=== PATIENT | male | born 1960 | race African-American/Black ===

== ENCOUNTER 2017-06-29 07:58 | Outpatient (CLI) | payer OTHER ==
[2017-06-29 09:11] LABS: #Eosinphils 0.1 thou/uL (0.0-0.7); #Lymphocytes 1.2 thou/uL (1.20-3.40); #Monocytes 0.3 thou/uL (0.11-0.59); #Neutrophils 3.9 thou/uL (1.40-6.50); %Basophils 0.3 % (0.0-1.0); %Lymphocytes 21.9 % (21.0-51.0); Hematocrit 38.5 % (42.0-52.0); Red Blood Cell (RBC) Count 5.14 mill/uL (4.70-6.10); White Blood Cell (WBC) Count 5.5 thou/uL (4.8-10.8)
[2017-06-29 09:24] LABS: Anion Gap 8 mmol/L (10-20); BUN (Urea Nitrogen) 9 mg/dL (8.4-25.7); Calc. Creatinine Clearance 0 mL/min (70-130); Calcium 8.8 mg/dL (7.8-10.44); Carbon Dioxide 27 mmol/L (22-29); Chloride 107 mmol/L (98-107); Estimated GFR-MDRD Greater than 90
== END 2017-06-29 07:59 | disposition home or self-care (01) ==
LOC: LABBT 07:58
PROVIDERS: ATTEND Specialist
DX: Z01.812 Encounter for preprocedural laboratory examination (principal); K43.2 Incisional hernia without obstruction or gangrene
CPT/HCPCS: 80048; 85025

== ENCOUNTER 2017-07-03 09:36 | Day surgery (SDC) | payer OTHER ==
[2017-07-03] MEDS ORDERED: Ketorolac Tromethamine 30 MG/ML VIAL ONE (10:21)
[2017-07-03] MEDS ORDERED: Lidocaine 1% w/Epinephrine 1:200K 30 ML VIAL ONE (11:27)
[2017-07-03] MEDS ORDERED: Bupivacaine 0.25% HCL 30 ML VIAL ONE (11:27)
[2017-07-03] MEDS ORDERED: Fentanyl 100 MCG/2 ML VIAL ONE ×2 (11:36→12:28)
[2017-07-03] MEDS ORDERED: Dexamethasone 20 MG/5 ML VIAL ONE (11:45)
[2017-07-03] MEDS ORDERED: Metoclopramide HCl 10 MG/2 ML VIAL ONE (11:45)
[2017-07-03] MEDS ORDERED: diphenhydrAMINE HCl 50 MG/ML 1 ML VIAL ONE (11:45)
[2017-07-03] MEDS ORDERED: Ondansetron HCl/PF 4 MG/2 ML Vial ONE (11:45)
[2017-07-03] MEDS ORDERED: Lidocaine 1% PF 5 ML VIAL ONE (11:45)
[2017-07-03] MEDS ORDERED: Succinylcholine Chloride 20 MG/ML 10 ml SYRINGE FS ONE (11:45)
[2017-07-03] MEDS ORDERED: Propofol 200 MG/20 ML VIAL ONE (11:45)
--- NOTE | 2017-07-05 21:58 | OP ---
DATE OF PROCEDURE: 07/03/2017 PREOPERATIVE DIAGNOSIS: Ventral incisional hernia. POSTOPERATIVE DIAGNOSIS: Ventral incisional hernia. OPERATION PERFORMED: Incisional hernia repair with mesh using a 4.3 cm Ventralex mesh patch. SURGEON: Shadi Neely M.D. ANESTHESIA: General endotracheal. INDICATIONS: The patient is a 57-year-old black male. He had undergone a Whipple procedure previou sly through a midline incision. He has developed a small, but enlarging incisional hernia. He is t aken to the operating room at this time for repair. DESCRIPTION OF OPERATION: Informed consent was obtained. The patient was taken to the operating ro om where general endotracheal anesthesia was obtained with the patient in supine position. Abdomen was prepped with ChloraPrep and draped in sterile fashion. Local anesthetic was infiltrated and a 4 cm incision was created through prior incision several centimeters above the umbilicus. Dissection was carried through skin and subcutaneous tissue. The hernia sac was identified, dissected circumf erentially, and excised. Entry was gained into the abdominal cavity. The fascial edges were debrid ed. The defect was about 1.5 cm in diameter. Digital inspection internally revealed no adhesions t o the surrounding abdominal wall. A 4.3 cm Ventralex patch was obtained. It was positioned intra-a bdominal and pulled snug against the posterior peritoneum. The fascia was cleared superiorly and in feriorly. The tails were secured to the fascia with 2 interrupted sutures of 0 Prolene superiorly a nd inferiorly. The lateral aspects of the defect were closed with single interrupted sutures of 0 P rolene incorporating bites of the anterior leaflet of the mesh patch. The wound was then closed in layers using 3-0 Vicryl and 4-0 Monocryl suture. Care was taken to obliterate the space of the prior hernia. Dermabond was placed externally. There were no complications. The patient tolerate d the procedure well and was taken to recovery room in stable condition.
== END 2017-07-03 13:32 | disposition home or self-care (01) ==
LOC: SDC 09:36
PROVIDERS: ATTEND Specialist
PROC: 0WUF0JZ Supplement Abdominal Wall with Synthetic Substitute, Open Approach (ICD-10-PCS; principal; 2017-07-03)
DX: K43.2 Incisional hernia without obstruction or gangrene (principal); F17.210 Nicotine dependence, cigarettes, uncomplicated; Z90.49 Acquired absence of other specified parts of digestive tract; Z95.828 Presence of other vascular implants and grafts; Z98.890 Other specified postprocedural states; Z82.3 Family history of stroke
CPT/HCPCS: 96374; J0131; J1100; J1200; J1885; J2001; J2405; J2704; J2765; J3010; S0020

== ENCOUNTER 2017-08-23 09:41 | Outpatient (CLI) | payer OTHER ==
[2017-08-23 10:36] LABS: Hematocrit 33.1 % (42.0-52.0); Mean Platelet Volume 7.6 fL (7.4-10.4); Red Blood Cell (RBC) Count 4.45 mill/uL (4.70-6.10); White Blood Cell (WBC) Count 6.6 thou/uL (4.8-10.8)
[2017-08-23 10:41] LABS: Prothrombin Time 13.6 SEC (12.0-14.7)
[2017-08-23 10:54] LABS: Anion Gap 9 mmol/L (10-20); BUN (Urea Nitrogen) 8 mg/dL (8.4-25.7); Calc. Creatinine Clearance 0 mL/min (70-130); Calcium 8.6 mg/dL (7.8-10.44); Carbon Dioxide 24 mmol/L (22-29); Chloride 109 mmol/L (98-107); Estimated GFR-MDRD Greater than 90
--- NOTE | 2017-08-23 11:29 | RAD ---
2 VIEW CHEST: Date: 08/23/17 HISTORY: Preoperative evaluation. COMPARISON: Portable film of 11/16/16. FINDINGS: There is new infiltrate in the left lower lobe posteriorly which obscures portions of the left hemidi aphragm. There is also evidence of left effusion. The lungs otherwise appear well aerated and clear. A MediPort catheter is in place with tip overlying the SVC. Heart size is normal. IMPRESSION: Focal infiltrate in the left lower lobe consistent with pneumonia. Follow-up recommended. Dr. Mary is being paged for notification at time of dictation. CODE CR. POS: [facility]
== END 2017-08-23 09:42 | disposition home or self-care (01) ==
LOC: LABBT 09:41
PROVIDERS: ATTEND Orthopaedic Surgery
DX: Z01.818 Encounter for other preprocedural examination (principal); G56.21 Lesion of ulnar nerve, right upper limb; R91.8 Other nonspecific abnormal finding of lung field
CPT/HCPCS: 71020; 80048; 85027; 85610; 93005; 93010

== ENCOUNTER 2017-09-24 18:23 | Emergency (ER) | payer OTHER ==
[2017-09-24] MEDS ORDERED: Acetaminophen 500 MG TAB ONE ×2 (18:42→18:43)
== END 2017-09-24 19:50 | disposition home or self-care (01) ==
LOC: ERS 18:23
DX: J11.1 Influenza due to unidentified influenza virus with other respiratory manifestations (principal); F17.210 Nicotine dependence, cigarettes, uncomplicated; Z79.899 Other long term (current) drug therapy
CPT/HCPCS: 87804; 99406

== ENCOUNTER 2017-11-09 08:38 | Outpatient (CLI) | payer OTHER ==
[2017-11-09] MEDS ORDERED: Iopamidol 370 76% 100 ML VIAL ONE (16:55)
== END 2017-11-09 08:39 | disposition home or self-care (01) ==
LOC: BICCT 08:38
PROVIDERS: ATTEND Specialist
DX: C16.9 Malignant neoplasm of stomach, unspecified (principal); J90 Pleural effusion, not elsewhere classified; Z98.890 Other specified postprocedural states
CPT/HCPCS: 74177

== ENCOUNTER 2017-12-28 09:59 | Outpatient (CLI) | payer OTHER ==
--- NOTE | 2017-12-28 12:31 | ULT ---
DOPPLER VENOUS ULTRASOUND BILATERAL UPPER EXTREMITIES: INDICATION: History of bilateral lower extremity edema. TECHNIQUE: Dalton scale, color Doppler, and vascular duplex with spectral analysis was performed of the deep venou s structures of both lower extremities. The common femoral vein, superficial femoral vein, popliteal vein, posterior tibial vein, proximal greater saphenous, and proximal profunda veins were assessed bi laterally. FINDINGS: There is normal compression, flow, and augmentation seen within the deep venous structures of both lo wer extremities. Some mildly prominent inguinal lymph nodes are seen bilaterally. IMPRESSION: 1. No evidence of deep vein thrombosis within both upper extremities. 2. Bilateral enlarged inguinal lymph nodes. POS: [facility]
== END 2017-12-28 10:00 | disposition home or self-care (01) ==
LOC: ULT 09:59
PROVIDERS: ATTEND Family Medicine
DX: R60.0 Localized edema (principal); R59.0 Localized enlarged lymph nodes
CPT/HCPCS: 93970

== ENCOUNTER 2018-02-09 18:05 | Observation (INO) | payer OTHER ==
[2018-02-09 20:24] LABS: #Monocytes 0.4 thou/uL (0.11-0.59); #Neutrophils 3.4 thou/uL (1.40-6.50); %Basophils 0.6 % (0.0-1.0); %Eosinophils 0.9 % (0.0-10.0); %Lymphocytes 21.2 % (21.0-51.0); %Monocytes 7.2 % (0.0-10.0); %Neutrophils 70.1 % (42.0-75.0); Hemoglobin 7.7 g/dL (14.0-18.0); Mean Corpuscular HGB CONC 31.8 g/dL (32.0-36.0); Mean Corpuscular Hemoglobin 24.4 pg (27.0-31.0); Mean Corpuscular Volume 76.8 fl (80.0-94.0); Mean Platelet Volume 11.2 fL (7.4-10.4); Platelet Count 148 thou/uL (130-400); RBC Distribution Width 17.8 % (11.5-14.5); Red Blood Cell (RBC) Count 3.17 mill/uL (4.70-6.10); White Blood Cell (WBC) Count 4.9 thou/uL (4.8-10.8)
[2018-02-09 20:34] LABS: Bilirubin Negative (Negative); Blood, Urine Negative (Negative); Clarity CLEAR (Clear); Glucose, Urine (Dipstick) Negative (Negative); Leukocyte Negative (Negative); Nitrite Negative (Negative); Protein, Urine (Dipstick) Negative (Neg-Trace); Specific Gravity, Urine 1.009 (1.002-1.036); Urobilinogen 0.2 mg/dL (0.2-1.0)
[2018-02-09 20:45] LABS: ALT (SGPT) 24 U/L (8-55); AST (SGOT) 39 U/L (5-34); Albumin 1.8 g/dL (3.5-5.0); Alkaline Phosphatase 206 U/L (40-150); Anion Gap 8 mmol/L (10-20); BUN (Urea Nitrogen) 5 mg/dL (8.4-25.7); Bilirubin, Total 0.4 mg/dL (0.2-1.2); Calc. Creatinine Clearance 0 mL/min (70-130); Calcium 7.3 mg/dL (7.8-10.44); Carbon Dioxide 25 mmol/L (22-29); Chloride 109 mmol/L (98-107); Estimated GFR-MDRD Greater than 90; Glucose 60 mg/dL (70-105); Potassium 3.6 mmol/L (3.5-5.1); Protein, Total 4.8 g/dL (6.0-8.3); Sodium 138 mmol/L (136-145)
--- NOTE | 2018-02-09 22:41 | PDOC.FPRHP ---
- History of Present Illness Chief Complaint: Lower extremity edema History of Present Illness: 57 yo M with past hx of stomach cancer s/p whipple procedure 1 year ago here with complaint of progressively worsening lower extremity edema. He first noticed swelling about 1 month ago in his lower legs it has since slowly progressed up his legs. He has been seen by his PCP who ordered an echo and labs to evaluate for CHF vs IVC obstruction which have yet to be completed. He states that over the past week he has become more concerned due to continued progression of the edema into his scrotum. He denies symptoms such as cough, SOB , leg pain, or abd pain. - Allergies/Adverse Reactions Allergies Allergy/AdvReac Type Severity Reaction Status Date / Time No Known Allergies Allergy Verified 08/23/17 09:55 - Home Medications Medication Instructions Recorded Confirmed Type Gabapentin [Neurontin] 300 mg PO QID 06/29/17 02/09/18 History Ascorbic Acid [Vitamin C] 1 tab PO BID 02/09/18 02/09/18 History Ferrous Sulfate 1 tab PO QAM 02/09/18 02/09/18 History Loperamide HCl [Loperamide] 2 mg PO PRN PRN 02/09/18 02/09/18 History Pantoprazole [Protonix] 40 mg PO DAILY 02/09/18 02/09/18 History buPROPion HCl [buPROPion HCl SR] 150 mg PO QAM 02/09/18 02/09/18 History - History PMHx: Gastric cancer GERD cubital tunnel syndrome b/l etoh abuse tobacco use PSHx: Whipple procedure oct 2016 FHx: unk Social: hx of etoh abuse 30+ pack year hx of smoking - Review of Systems General: denies: fever/chills, weight/appetite/sleep changes ENT: denies: nasal congestion Respiratory: denies: cough, congestion, shortness of breath Cardiovascular: reports: edema (b/l LE). denies: chest pain, palpitation Gastrointestinal: reports: diarrhea (chronic after whipple). denies: nausea, vomiting, abdominal pain Genitourinary: denies: incontinence Skin: denies: rashes, lesions, jaundice, itching Musculoskeletal: denies: pain, tenderness Neurological: denies: numbness, syncope, seizure Psychological: denies: anxiety, depression - Vital signs BP: 94/61 HR: 87 RR: 18 Tmax: 98.7 Pox: 98% on RA Wt: 72.5 - Physical Exam Constitutional: NAD, awake, alert and oriented, well developed HEENT: normocephalic and atraumatic, PERRLA, EOMI, conjunctiva clear, no scleral icterus, grossly normal vision Neck: supple, FROM, trachea midline Chest: no-tender to palpation, no lesions Heart: RRR, other (3+ pitting edema to iliac crest b/l) -Heart: Systolic murmur, does not radiate Lungs: CTAB, no respiratory distress, good air movement Abdomen: soft, non-tender, bowel sounds present, no masses/distention Musculoskeletal: normal structure, ROM grossly normal Neurological: no focal deficit, CN II-XII intact -Neurological: decreased sensation in hands b/l Skin: no rash/lesions, good turgor Heme/Lymphatic: no unusual bruising or bleeding, no purpura Psychiatric: normal mood and affect, good judgment and insight FMR H&P: Results - Labs Result Diagrams: 02/09/18 20:02 02/09/18 20:02 Lab results: WBC 4.9 thou/uL (4.8-10.8) 02/09/18 20:02 Hgb 7.7 g/dL (14.0-18.0) L 02/09/18 20:02 Hct 24.3 % (42.0-52.0) L 02/09/18 20:02 MCV 76.8 fl (80.0-94.0) L 02/09/18 20:02 Plt Count 148 thou/uL (130-400) 02/09/18 20:02 Neutrophils % 70.1 % (42.0-75.0) 02/09/18 20:02 Sodium 138 mmol/L (136-145) 02/09/18 20:02 Potassium 3.6 mmol/L (3.5-5.1) 02/09/18 20:02 Chloride 109 mmol/L (98-107) H 02/09/18 20:02 Carbon Dioxide 25 mmol/L (22-29) 02/09/18 20:02 BUN 5 mg/dL (8.4-25.7) L 02/09/18 20:02 Creatinine 0.73 mg/dL (0.6-1.3) 02/09/18 20:02 Glucose 60 mg/dL (70-105) L 02/09/18 20:02 Calcium 7.3 mg/dL (7.8-10.44) L 02/09/18 20:02 Total Bilirubin 0.4 mg/dL (0.2-1.2) 02/09/18 20:02 AST 39 U/L (5-34) H 02/09/18 20:02 ALT 24 U/L (8-55) 02/09/18 20:02 Alkaline Phosphatase 206 U/L (40-150) H 02/09/18 20:02 Serum Total Protein 4.8 g/dL (6.0-8.3) L 02/09/18 20:02 Albumin 1.8 g/dL (3.5-5.0) L 02/09/18 20:02 Urine Ketones Negative mg/dL (Negative) 02/09/18 20:28 Urine Blood Negative (Negative) 02/09/18 20:28 Urine Nitrite Negative (Negative) 02/09/18 20:28 Ur Leukocyte Esterase Negative (Negative) 02/09/18 20:28 - EKG Interpretation EKG: NSR rate 76 FMR H&P: A/P - Problem List (1) Anasarca Current Visit: Yes Status: Acute Code(s): R60.1 - GENERALIZED EDEMA (2) GERD (gastroesophageal reflux disease) Current Visit: Yes Status: Acute Code(s): K21.9 - GASTRO-ESOPHAGEAL REFLUX DISEASE WITHOUT ESOPHAGITIS (3) Anemia Current Visit: Yes Status: Acute Code(s): D64.9 - ANEMIA, UNSPECIFIED (4) Elevated alkaline phosphatase level Current Visit: Yes Status: Acute (5) Elevated AST (SGOT) Current Visit: Yes Status: Acute Code(s): R74.0 - NONSPEC ELEV OF LEVELS OF TRANSAMNS & LACTIC ACID DEHYDRGNSE (6) Hypoalbuminemia Current Visit: Yes Status: Acute Code(s): E88.09 - OTH DISORDERS OF PLASMA- PROTEIN METABOLISM, NEC (7) Hypotension Current Visit: Yes Status: Acute - Plan 1. Anasarca - unclear cause at this point. Ddx includes right HF, low oncotic pressure 2/2 hypoalbuminemia, nephrotic syndrome, IVC obstruction - order CT abd w/wo to eval for abd mass and/or liver mets - urine studies pending for urine protein - prealbumin to evaluate for malnutrition 2/2 malabsorption as cause of hypoalbuminemia - echo pending to r/o HF, BNP WNL - strict i/o - admit to medicine 2. hypoalbuminemia - prealbumin and abd CT as above. Most likely causes include malabsorption and liver dysfunction due to alcoholism and/or possible liver mets - nutrition consult 3. Microcytic anemia - chronic, however lower than most recent labs - FOBT pending 4. Hypotension - asymptomatic. Likely dt intravascular depletion 2/2 low oncotic pressure. monitor vitals 5. 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 Pt has been seeing PCP in outpatient setting and workup was initiated to further evaluate. Pt presented for progressively ascending lower extremity edema and records indicate he could not tolerate lasix previously due to hypotension. Pt denies CP, SOB, THAKKAR, orthopnea. - Pertinent findings Vitals: BP 114/70, HR 71, RR 16, O2 97% on RA, Temp 97.8, weight 72kg Gen: sitting up in bed, NAD CV: RRR Resp: CTAB Ext: 2-3+ edema up to hips BL - Plan Date/Time: 02/09/18 [id number] I, Maikol Khan MD, have evaluated this patient and agree with findings/plan as outlined by sourcing intern resident. Pertinent changes/additions are listed here. 1. Anasarca -Unclear etiology, pt was admitted prior to work up being completed in ER. DDx includes liver, nutritional, cardiac or renal etiology. Admit to medical observation. -With history of gastric adenocarinoma, EtOH abuse, hypoalbuminemia and worsening swelling, concern for liver pathology or mass effect on IVC. Obtain CT abd w/wo, GGT, hepatitis panel, coagulation panel. -With history of Whipple, possibly secondary to malnutrition or protein-losing enteropathy, will check prealbumin. -With worsening lower extremity edema, will check BNP and CXR. No evidence of acute respiratory distress and dx of CHF seems unlikely at this point. Consider TTE outpatient. -With hypoalbuminemia, will also rule out nephrotic syndrome by obtaining UA and urine studies. 2. Hypoalbuminemia -per above -dietary consult 3. Microcytic anemia -obtain FOBT and iron studies and continue to monitor closely. PPx: SCDs for VTE prophylaxis CODE STATUS: FULL
[2018-02-09 23:04] LABS: INR-International Normal Ratio 1.4; PTT 41.8 SEC (22.9-36.1); Prothrombin Time 17.3 SEC (12.0-14.7)
[2018-02-09] MEDS ORDERED: Loperamide HCl 2 MG CAP PO PRN (23:58)
[2018-02-10 01:35] LABS: HBSAg Index 0.17 S/CO (0-0.99); Hep B Surf Ag Non-Reactive S/CO (NonReactive); Hep C IgG Ab Non-Reactive (NonReactive); Hep C Index 0.16 S/CO (0-0.79)
[2018-02-10] MEDS ORDERED: Ondansetron HCl/PF 4 MG/2 ML Vial IVP PRN (01:52)
[2018-02-10] MEDS ORDERED: Ondansetron ODT 4 MG TAB SL PRN (01:52)
[2018-02-10 02:42] LABS: HBSAB Concentration 543.56 mIU/mL; Hep B Core Total Ab Reactive (NonReactive); Hep B Core Total Index 6.05 S/CO (0-0.79); Hep B Surf AB Reactive (NonReactive)
[2018-02-10 02:59] LABS: Creatinine, Urine 76.21 mg/dL (63-166); Protein, Urine Random Quant Less than 10 mg/dL; Sodium, Urine 40 mmol/L (Not Available)
[2018-02-10 04:38] LABS: #Eosinphils 0.1 thou/uL (0.0-0.7); #Lymphocytes 0.9 thou/uL (1.20-3.40); #Monocytes 0.5 thou/uL (0.11-0.59); #Neutrophils 3.9 thou/uL (1.40-6.50); %Basophils 0.6 % (0.0-1.0); %Eosinophils 1.8 % (0.0-10.0); %Lymphocytes 16.1 % (21.0-51.0); %Neutrophils 72.5 % (42.0-75.0); Hemoglobin 7.8 g/dL (14.0-18.0); Mean Corpuscular HGB CONC 30.7 g/dL (32.0-36.0); Mean Corpuscular Hemoglobin 24.2 pg (27.0-31.0); Mean Corpuscular Volume 78.8 fl (80.0-94.0); Mean Platelet Volume 10.6 fL (7.4-10.4); Platelet Count 135 thou/uL (130-400); RBC Distribution Width 18.3 % (11.5-14.5); Red Blood Cell (RBC) Count 3.23 mill/uL (4.70-6.10); White Blood Cell (WBC) Count 5.4 thou/uL (4.8-10.8)
[2018-02-10 04:48] LABS: ALT (SGPT) 19 U/L (8-55); AST (SGOT) 34 U/L (5-34); Albumin 1.5 g/dL (3.5-5.0); Alkaline Phosphatase 191 U/L (40-150); Anion Gap 9 mmol/L (10-20); BUN (Urea Nitrogen) 4 mg/dL (8.4-25.7); Bilirubin, Total 0.3 mg/dL (0.2-1.2); Calc. Creatinine Clearance 124 mL/min (70-130); Calcium 7.2 mg/dL (7.8-10.44); Carbon Dioxide 22 mmol/L (22-29); Chloride 110 mmol/L (98-107); Estimated GFR-MDRD Greater than 90; Globulin 2.8 g/dL (2.4-3.5); Glucose 67 mg/dL (70-105); Iron 53 ug/dL (65-175); Potassium 3.5 mmol/L (3.5-5.1); Protein, Total 4.3 g/dL (6.0-8.3); Sodium 137 mmol/L (136-145)
--- NOTE | 2018-02-10 06:12 | PDOC.FM ---
- Subjective Subjective: Patient doing ok this morning. Denies pain. Only complaint is diffuse swelling which started abruptly last night. Patient states he has never been told he has liver problems, even when being treated for gastric cancer 15 months ago. He has never had to have fluid removed from his abdomen. - Objective MAR Reviewed: Yes Vital Signs & Weight: Vital Signs (12 hours) Temp Pulse Resp BP Pulse Ox 02/10/18 04:00 98.5 F 77 16 101/72 100 02/09/18 22:30 97.8 F 71 16 114/70 97 Weight Weight 71.713 kg Result Diagrams: 02/10/18 04:12 02/10/18 04:12 EKG Reviewed by me: Yes Radiology Reviewed by me: Yes Phys Exam - Physical Examination Constitutional: NAD HEENT: PERRLA, moist MMs Neck: supple Respiratory: clear to auscultation bilateral Cardiovascular: RRR Gastrointestinal: soft, non-tender, positive bowel sounds mildly distended Musculoskeletal: pulses present 3+ pitting edema in bilateral lower extremities Neurological: moves all 4 limbs Psychiatric: A&O x 3 Skin: cap refill <2 seconds Dx/Plan (1) Anasarca Code(s): R60.1 - GENERALIZED EDEMA Status: Acute (2) Hypoalbuminemia Code(s): E88.09 - OTH DISORDERS OF PLASMA-PROTEIN METABOLISM, NEC Status: Acute (3) Microcytic anemia Code(s): D50.9 - IRON DEFICIENCY ANEMIA, UNSPECIFIED Status: Acute (4) History of gastric cancer Code(s): Z85.028 - PERSONAL HISTORY OF OTHER MALIGNANT NEOPLASM OF STOMACH Status: Chronic (5) GERD (gastroesophageal reflux disease) Code(s): K21.9 - GASTRO-ESOPHAGEAL REFLUX DISEASE WITHOUT ESOPHAGITIS Status: Chronic - Plan Plan: 1. Anasarca - unclear cause at this point. Ddx includes right HF, low oncotic pressure 2/2 hypoalbuminemia, nephrotic syndrome, IVC obstruction - CT abd w/wo showed large amount of ascites, SC soft tissue edema - urine studies not consistent with nephrotic syndrome - prealbumin consistent with possible malnutrition 2/2 malabsorption as cause of hypoalbuminemia - BNP WNL - strict I/O - May need to consider starting albumin 2. Hypoalbuminemia - prealbumin low - CT read shows ascites and SC edema - Most likely causes include malabsorption and liver dysfunction due to alcoholism and/or possible liver mets (liver mets not mentioned on CT read) - nutrition consult - consider starting albumin 3. Microcytic anemia - chronic, however lower than most recent labs - FOBT negative - Iron low - Pt currently on iron supplementation - May be secondary to liver dysfunction 4. Hypotension - asymptomatic. Likely dt intravascular depletion 2/2 low oncotic pressure. monitor vitals 5. Elevated AST and Alk Phos - Most likely related to skilled nursing etoh abuse vs liver mets - abd imaging as above - GGT elevated - coags elevated - Liver function poor as albumin and PT abnormal - May need to consider GI consult Ppx: SCDs and frequent ambulation Code Full Diet regular Dispo: Stable, will continue work up to determine source and further plan. Anticipate LOS >48 hours.
[2018-02-10] MEDS: Ferrous Sulfate 325 MG TAB PO SCH (08:25)
[2018-02-10] MEDS: Gabapentin 300 MG CAP PO SCH ×4 (08:26→21:28)
[2018-02-10] MEDS: Ascorbic Acid 500 mg Chewable Tablet PO SCH ×2 (08:26→21:28)
[2018-02-10] MEDS: Bupropion 150 MG SR TAB PO SCH (08:26)
[2018-02-10] MEDS ORDERED: Furosemide 40 MG/4 ML VIAL SLOW IVP SCH (09:30)
--- NOTE | 2018-02-10 09:58 | RAD ---
PORTABLE CHEST: Date: 02/09/18 HISTORY: Lower extremity edema. History of gastric adenocarcinoma. COMPARISON: 08/23/17 study. FINDINGS: Heart size within normal limits. Left-sided pleural and parenchymal lung changes are stable. Right Me diPort catheter is unchanged in position. Some minimal subsegmental atelectatic changes are seen in the right base. IMPRESSION: Fairly stable appearance to pleural and parenchymal changes seen in the left base with some linear at electatic change now seen in the right lung base. POS: [facility]
--- NOTE | 2018-02-10 11:49 | CT ---
PRELIMINARY REPORT/[facility]/EMERGENTY AFTER-HOURS PROCEDURE CT Abdomen and Pelvis Without and With Intravenous Contrast CLINICAL HISTORY: 57 years old, male; Eval liver; C/O generalized abdominal pain. HX gastric adenocarcinoma; Pt is poor historian TECHNIQUE: Axial computed tomography images of the abdomen and pelvis without and with intravenous contrast. Cor onal reformatted images were created and reviewed. COMPARISON: No relevant prior studies available. FINDINGS: Lung bases: Right lower lobe linear parenchymal scarring or subsegmental collapse / atelectasis. Infe rior left lung base consolidation and/or atelectasis adjacent to the left hemidiaphragm with a few ai r bronchograms. Pleural space: Minimal left pleural fluid. Heart: Coronary artery calcification. ABDOMEN: Liver: Fatty infiltration within the right lobe of the liver. Gallbladder and bile ducts: Unremarkable. No calcified stones. No ductal dilation. Pancreas: Unremarkable. No mass. No ductal dilation. Spleen: Unremarkable. No splenomegaly. Adrenals: Unremarkable. No mass. Kidneys and ureters: Unremarkable. No solid mass. No obstructing stones. No hydronephrosis. Stomach and bowel: Prior gastrojejunostomy. No obstruction. No mucosal thickening. PELVIS: Appendix: No findings to suggest acute appendicitis. Bladder: Unremarkable. No mass. No stones. Reproductive: Unremarkable as visualized. ABDOMEN and PELVIS: Intraperitoneal space: Large amount of ascites. No free air. Bones/joints: No acute fracture. No dislocation. Soft tissues: Subcutaneous soft tissue edema. Vasculature: Unremarkable. No abdominal aortic aneurysm. Lymph nodes: Unremarkable. No enlarged lymph nodes. IMPRESSION: 1. Large amount of ascites. 2. Subcutaneous soft tissue edema. 3. Prior gastrojejunostomy. 4. Minimal left pleural fluid. Inferior left lung base consolidation and/or atelectasis adjacent to t he left hemidiaphragm with a few air bronchograms. Thank you for allowing us to participate in the care of your patient. Dictated and Authenticated by: Canelo Gallo MD 02/10/2018 1:57 AM Central Time ([place] & [place]) FINAL REPORT CT OF ABDOMEN AND PELVIS PERFORMED WITH AND WITHOUT CONTRAST ENHANCEMENT: Date: 02/09/18 HISTORY: Anasarca. History of gastric adenocarcinoma. Generalized abdominal pain. FINDINGS: Lung bases show small left pleural effusion with some minimal atelectasis or possibly early infiltrat e. There is also some linear and interstitial change in the right base, probably related to atelectas is. Liver shows a geographic pattern related to areas of fatty change. It is within normal limits of size. The spleen is normal in appearance. Pancreas is mildly atrophic. I do not definitively identify the gallbladder. Right and left adrenal glands, and right and left kidneys are normal in size and appearance. No signi ficant periaortic adenopathy. Multiple surgical clips are seen at the level of the root of the mesent marah and postoperative changes which appear to be related to a gastrojejunostomy are present. No bowel obstruction, but there is a large amount of ascites noted. CT of pelvis was performed with and without contrast enhancement. A large amount of ascites is noted. No adenopathy, mass, or free fluid. There is edema change seen in the subcutaneous tissue consistent with anasarca. No osseous abnormalit ies noted. IMPRESSION: 1. Large volume ascites. 2. Small left pleural effusion with left lower lobe atelectasis or minimal infiltrate. 3. Postoperative changes of the stomach. 4. Fatty changes of the liver. This report is in agreement with the preliminary report issued by [facility]. POS: [facility]
[2018-02-10 12:07] LABS: Iron Binding Capacity, Total Less than 60 mcg/dL (261-462)
--- NOTE | 2018-02-10 14:08 | ADD-HP ---
ADDENDUM Please see the history and physical from Dr. Maikol Noland, for which I concur. The patient was seen and evaluated, examined and discussed with residents by bedside. HISTORY OF PRESENT ILLNESS: A 57-year-old with history of gastric carcinoma. It sounds like bernicei ng a Whipple procedure a year ago. At that time, he states he was told that his liver was fine, alth ough does have some fairly significant alcohol history, but comes in with anasarca with leg edema, as cites, even some hand edema, slight shortness of breath. A CT showed enlarged liver, quite a bit of ascites and bowel edema and so he is being brought in for evaluation and to help with symptoms. Past medical history, past surgical history, social history, family history, and review of systems al l per the history and physical from Dr. Noland, for which I concur. PHYSICAL EXAMINATION: VITAL SIGNS: Blood pressure is slightly low, nothing excessive. O2 sats okay. GENERAL: Alert and oriented x3, appropriate. HEENT: Looks fine. Conjunctivae not particularly pale. CHEST: Clear. CARDIOVASCULAR: Regular rate and rhythm. He was actually getting an echocardiogram in the room when I saw him, and looking at the ejection fraction, looks like it is squeezing well. ABDOMEN: Slightly distended, consistent with ascites. EXTREMITIES: Show 1 to 2+ pitting edema. LABORATORY AND X-RAY FINDINGS: Initial blood workup significant for a low hemoglobin of 7.7, low sug ar, slightly elevated liver function tests, slightly low calcium, basically looks like a pretty class ic cirrhosis picture. CT as discussed above. ASSESSMENT AND PLAN: Cirrhosis of the liver with anasarca. I did notice on hepatitis panel that hep atitis B core was positive, but his AST and ALT are not high enough that I would think this is some k ind of acute hepatitis B if this is likely a previous infection. We will probably need to get a hep B RNA level at some point in time, but will get GI involved to help us see if we want to consider a l iver biopsy or just proceed assuming this as alcoholic cirrhosis. We will put him on Lasix and randee nolactone, and we will watch the hemoglobin closely. Otherwise, obviously counseled about quitting a lcohol and otherwise we will watch his anemia and continue PPI for his stomach, etc. There is no steven son that I can see that this looks like there are recurring gastric carcinoma, so I do not think we n eed to get oncology involved at this point in time.
[2018-02-10] MEDS: Furosemide 40 MG TAB PO SCH (14:38)
--- NOTE | 2018-02-10 21:51 | CON ---
DATE OF CONSULTATION: 02/10/2018 GI INPATIENT CONSULTATION NOTE REQUESTING PHYSICIAN: Dr. Mills. REASON FOR CONSULTATION: Anasarca, possible liver disease. HISTORY OF PRESENT ILLNESS: Shadi Bush is a very pleasant 57-year-old -[place] gentleman , a patient of my GI colleague, Dr. Kellen Martin. Mr. 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 This was a T4 N2 M0 lesion for which he underwent a Whipple surgery in 10/[address] Neely followed by adjuvant chemotherapy through 01/2017. The patient actually recently had a followup EGD in December of this year showing only a 2-cm hiatal hernia , some distal esophagitis and normal postoperative changes of gastrojejunostomy. Mr. Bush denies a ny prior history of liver or kidney disease. He reports that starting about a month ago, he began to have some lower extremity edema. This has been very slowly progressive over the course of the month ascending up his legs and now starting to involve the scrotum and the abdominal wall, even his face and hands got puffy recently, he presented for evaluation and had a CT of the abdomen and pelvis whic h confirmed anasarca as well as a large amount of ascites, no lesions concerning for recurrence of ma lignancy. There is some fatty infiltration of the right side of the liver. Laboratory studies are s ignificant for elevated GGT to 184 and alkaline phosphatase to 191, albumin is quite low at 1.5 and p realbumin is less than 5. INR is 1.4. He appears to have good kidney function, normal thyroid funct ion and normal cardiac function. Echocardiogram showed essentially normal systolic function. Urinal ysis is negative. The patient does smoke cigarettes. He also reports that he drinks alcohol, he wou ld estimate at least 3 or 4 beers per day, but again there is no prior history of liver disease. Mr. Bush denies any gastrointestinal symptoms except for some chronic diarrhea ever since his Whipple surgery which is well controlled with Imodium. He denies any melena, hematochezia, nausea, vomiting, abdominal pain. REVIEW OF SYSTEMS: Full review of systems including constitutional, head, eyes, ears, nose, throat, GI, , cardiovascular, respiratory, musculoskeletal, and neurologic systems is negative except as no jolly in the HPI. PAST MEDICAL HISTORY: 1. Gastric adenocarcinoma (T4 N2 M0 distal gastric lesion), status post Whipple surgery in 10/2016, followed by adjuvant chemotherapy through 01/2017. 2. Hiatal hernia. 3. Gastroesophageal reflux disease. 4. Tobacco abuse. 5. Alcohol use. ALLERGIES: No known drug allergies. OUTPATIENT MEDICATIONS: Neurontin, vitamin C, ferrous sulfate daily, Protonix 40 mg daily, bupropion , Imodium p.r.n., Lasix 40 mg b.i.d. SOCIAL HISTORY: He does smoke cigarettes 30+ pack year history. He reports his alcohol use is about 3 or 4 beers per day. PHYSICAL EXAMINATION: VITAL SIGNS: Temperature 98.7, pulse 91, blood pressure 111/71, 98% oxygen saturation on room air. GENERAL: A 57-year-old -[place] gentleman lying in bed comfortably in no distress. MENTAL: He is in good spirits, alert and fully oriented, pleasant, conversational. EYES: No scleral icterus. Extraocular movements intact. ENT: Mucous membranes moist, no oral lesions. LYMPH: No submandibular, supraclavicular lymphadenopathy. THYROID: Nontender to palpation. SKIN: No jaundice, no rash visible or palpable. HEART: Regular rate and rhythm. LUNGS: Clear to auscultation bilaterally. ABDOMEN: Mild distention with ascites. Dull to percussion. Bowel sounds present, soft, nontender t o palpation throughout. No organomegaly appreciated. EXTREMITIES: He has 1+ to 2+ bilateral lower extremity edema. NEUROLOGICAL: Cranial nerves II through XII intact bilaterally. No focal deficits. No asterixis. VESSELS: Radial pulses 2+ bilaterally. LABORATORY STUDIES: Hemoglobin 7.8. INR 1.4. WBC 5.4, platelets 135. BUN 4, creatinine 0.65. TSH 1.85. GGT 184. BNP 61.9, prealbumin less than 5, total bilirubin 0.3, alkaline phosphatase 191, T 34, ALT 19, albumin only 1.5. Urinalysis negative for protein. Hepatitis C antibody negative, hep atitis B surface antigen negative, hepatitis B surface antibody positive, hepatitis B core antibody p ositive. IMAGING STUDIES: Chest x-ray shows no acute processes, except for some chronic changes of the left l marnie base. CT abdomen and pelvis demonstrates consolidation versus atelectasis of the left lung base, some fatty infiltration of the right side of the liver, otherwise normal appearing gallbladder, panc reas, spleen, adrenals, and kidneys. There are postoperative changes of gastrojejunostomy and a larg e amount of ascites and subcutaneous edema. ASSESSMENT AND PLAN: 1. Anasarca, new onset over the past month. 2. Ascites, new onset. 3. History of gastric adenocarcinoma status post Whipple operation in 10/2016. 4. Malnutrition. I discussed a wide differential for new onset anasarca and ascites with the patient. I note his echo cardiogram seems to show good systolic function. Note also renal function appears to be normal with a normal urinalysis. He does have a significant alcohol history, though note alkaline phosphatase is only mildly elevated. This is certainly not an acute alcoholic hepatitis. Note his low prealbumin and albumin levels. He does appear to be malnourished and is certainly at risk for this after a Whip ple procedure. I think his presentation may be more due to malnutrition or perhaps micronutrient def iciency, rather than initial decompensation of cirrhosis. I would recommend that he undergo ultrasou nd-guided diagnostic paracentesis with fluid sent for cell count, cytology, total protein, albumin, l ipase and cytology. I have ordered this for tomorrow. I have also ordered some further nutritional labs to be drawn with his morning labs including vitamin A, B1, B12, vitamin E, vitamin K and vitamin D levels. We will also order a ferritin level. I note the negative viral hepatitis serologies. We will also order autoimmune serologies for liver workup. In the meantime, I agree with the diuretics. I would have him on a low sodium diet.
[2018-02-11 04:53] LABS: Ferritin 270.45 ng/mL (22-322)
--- NOTE | 2018-02-11 06:55 | PDOC.FM ---
- Subjective Subjective: No acute events overnight. Seen by Dr. Pollard. Planning to get a diagnostic paracentesis today. - Objective MAR Reviewed: Yes Vital Signs & Weight: Vital Signs (12 hours) Temp Pulse Resp BP BP Pulse Ox 02/11/18 03:52 98.8 F 83 20 99/68 95 02/10/18 20:03 98.7 F 83 20 108/72 96 02/10/18 20:00 98.7 F 83 20 Weight Weight 69.763 kg I&O: 02/09/18 02/10/18 02/11/18 06:59 06:59 06:59 Intake Total 850 1465 Output Total 350 2550 Balance 500 -1085 Result Diagrams: 02/10/18 04:12 02/11/18 04:00 <Mary Lala - Last Filed: 02/11/18 08:42> - Objective Vital Signs & Weight: Vital Signs (12 hours) Temp Pulse Resp BP BP Pulse Ox 02/11/18 10:58 98.3 F 68 16 109/71 98 02/11/18 10:41 67 14 117/74 99 02/11/18 07:49 98.8 F 83 20 02/11/18 07:48 98.0 F 78 16 114/78 98 02/11/18 03:52 98.8 F 83 20 99/68 95 Weight Weight 68.084 kg I&O: 02/10/18 02/11/18 02/12/18 06:59 06:59 06:59 Intake Total 850 1465 Output Total 350 2550 Balance 500 -1085 Result Diagrams: 02/11/18 07:19 02/11/18 04:00 <Wai Johnson - Last Filed: 02/11/18 11:45> Phys Exam - Physical Examination Constitutional: NAD HEENT: PERRLA, moist MMs Respiratory: no wheezing, no rales, clear to auscultation bilateral Cardiovascular: RRR, no significant murmur Gastrointestinal: soft, non-tender ascites bilateral 3+ pitting edema Neurological: non-focal, normal sensation, moves all 4 limbs Psychiatric: normal affect, A&O x 3 Skin: no rash <Mary Lala - Last Filed: 02/11/18 08:42> Dx/Plan (1) Malnutrition related to chronic disease Code(s): E46 - UNSPECIFIED PROTEIN-CALORIE MALNUTRITION Status: Acute (2) Anasarca Code(s): R60.1 - GENERALIZED EDEMA Status: Acute (3) Ascites Code(s): R18.8 - OTHER ASCITES Status: Acute (4) Bilateral lower extremity edema Code(s): R60.0 - LOCALIZED EDEMA Status: Acute (5) Hypoalbuminemia Code(s): E88.09 - OTH DISORDERS OF PLASMA-PROTEIN METABOLISM, NEC Status: Acute (6) Hypotension Status: Acute (7) History of gastric cancer Code(s): Z85.028 - PERSONAL HISTORY OF OTHER MALIGNANT NEOPLASM OF STOMACH Status: Resolved (8) Microcytic anemia Code(s): D50.9 - IRON DEFICIENCY ANEMIA, UNSPECIFIED Status: Acute - Plan Plan: 1. Anasarca - Suspect chronic malnutrition from hx of gastric adenocarcinoma s/p whipple procedure vs malignancy - CT abd w/wo showed large amount of ascites, SC soft tissue edema, pitting, 3+ - urine studies not consistent with nephrotic syndrome - BNP WNL - strict I/O - May need to consider starting albumin - Will order mg and phosph - Calcium corrects to 8.9 2. Hypoalbuminemia - pt has hypoalbuminemia consistent with suspected malnutrition possibly from malabsorption - prealbumin low and CT read shows ascites and SC edema - nutrition consult - consider starting albumin, however will wait for results of paracentesis. 3. Microcytic anemia - chronic, however lower than most recent labs - FOBT negative - Iron low - Pt currently on iron supplementation 4. Hypotension - Asymptomatic. Likely dt intravascular depletion 2/2 low oncotic pressure. - monitor vitals - consider giving a bolus of albumin 5. Elevated AST and Alk Phos - Unclear etiology - abd imaging as above - GGT elevated Ppx: SCDs and frequent ambulation Code Full Diet regular Dispo: Stable, will continue work up to determine source and further plan. Anticipate LOS >48 hours. <Mary Lala - Last Filed: 02/11/18 08:42> Attending Addendum - Attending Addendum Date/Time: 02/11/18 1142 I personally evaluated the patient and discussed the management with Dr. Lala I agree with the History, Examination, Assessment and Plan documented above with any addition or exceptions noted below.Patient s/p diagnostic paracentesis this AM path is pending s/p Whipple gastric CA Hx of XRT and Chemo Arabella Ruby and Marcello. Dietary consultation to address malabsorption recs <Wai Johnson - Last Filed: 02/11/18 11:45>
[2018-02-11 08:05] LABS: Glucose Accucheck Confirmation 77 mg/dl (70-105)
[2018-02-11 08:12] LABS: ALT (SGPT) 20 U/L (8-55); AST (SGOT) 26 U/L (5-34); Albumin 1.7 g/dL (3.5-5.0); Alkaline Phosphatase 191 U/L (40-150); Anion Gap 5 mmol/L (10-20); BUN (Urea Nitrogen) 4 mg/dL (8.4-25.7); Bilirubin, Total 0.5 mg/dL (0.2-1.2); Calc. Creatinine Clearance 114 mL/min (70-130); Calcium 7.1 mg/dL (7.8-10.44); Carbon Dioxide 27 mmol/L (22-29); Chloride 106 mmol/L (98-107); Estimated GFR-MDRD Greater than 90; Globulin 2.9 g/dL (2.4-3.5); Glucose 78 mg/dL (70-105); Potassium 3.2 mmol/L (3.5-5.1); Protein, Total 4.6 g/dL (6.0-8.3); Sodium 135 mmol/L (136-145)
--- NOTE | 2018-02-11 08:14 | PRG ---
DATE OF SERVICE: 02/11/2018 SUBJECTIVE: Mr. Bush is feeling about the same, lower extremity edema persists. Paracentesis is s et for later today. No fever. He does report his appetite in general has been lower over the past f ew weeks and months. He is basically eating 1 meal per day. OBJECTIVE: VITAL SIGNS: Temperature 98.8, pulse 83, blood pressure 99/68, 95% oxygen saturation on room air. GENERAL: No acute distress. HEART: Regular rate and rhythm. LUNGS: Clear to auscultation bilaterally. ABDOMEN: Mild distention. Dull to percussion, nontender to palpation. EXTREMITIES: 2+ bilateral lower extremity pitting edema. LABORATORY STUDIES: Ferritin is 270.45. Vitamin B12 normal at 387, 25 hydroxy, vitamin D is very lo w at 5.0, Prealbumin is less than 5.0, albumin only 1.5. Vitamin A, vitamin E, vitamin K, folic acid and zinc all pending. ASSESSMENT AND PLAN: 1. Anasarca. 2. Ascites, new onset. 3. History of gastric adenocarcinoma status post Whipple surgery 10/2016. 4. Malnutrition. Follow up results of paracentesis scheduled for later today, particularly fluid cytology, total prote in and albumin. Note, he is quite deficient in vitamin D. I do think his presentation is more likel y secondary to malnutrition than to decompensated cirrhosis. He will need high dose vitamin D replac ement, and I would suggest 50,000 units of vitamin D3 on a weekly basis for at least the next 8 weeks and recheck. Awaiting other nutritional labs. I think the patient would benefit from dietitian narinder greco at this time as well. He will need to follow up with Dr. Martin in the [facility] in the near future as well.
[2018-02-11 08:50] LABS: #Eosinphils 0.1 thou/uL (0.0-0.7); #Lymphocytes 1.6 thou/uL (1.20-3.40); #Monocytes 0.5 thou/uL (0.11-0.59); #Neutrophils 4.2 thou/uL (1.40-6.50); %Basophils 0.3 % (0.0-1.0); %Eosinophils 1.3 % (0.0-10.0); %Lymphocytes 25.2 % (21.0-51.0); %Monocytes 7.2 % (0.0-10.0); Band 13 % (5-11); Hemoglobin 9.6 g/dL (14.0-18.0); Hypochromia SLIGHT = 6-15 cells (100X) (0-5/hpf); Lymphocytes 7 % (21-51); MDiff Complete? YES; Mean Corpuscular HGB CONC 31.2 g/dL (32.0-36.0); Mean Corpuscular Volume 76.9 fl (80.0-94.0); Mean Platelet Volume 5.5 fL (7.4-10.4); Microcytosis SLIGHT = 6-15 cells (100X) (0-5/hpf); Monocytes 3 % (0-10); Myelocyte 1 % (0-0); Neutrophil 72 % (42-75); Nucleated RBC 1 % (0); Ovalocytes MODERATE= 6-15 cells (100X) (0-1/hpf); PLT Morphology Comment Appears Adequate; Platelet Count 176 thou/uL (130-400); Polychromasia SLIGHT = 2-3 cells (100X) (0-2/hpf); RBC Distribution Width 17.9 % (11.5-14.5); Reactive Lymphocytes 2 % (0-10); Red Blood Cell (RBC) Count 4.02 mill/uL (4.70-6.10); Schistocytes SLIGHT = 2-5 cells (100X) (0-1/hpf); Target Cells MODERATE= 6-15 cells (100X) (0-1/hpf); White Blood Cell (WBC) Count 6.4 thou/uL (4.8-10.8)
[2018-02-11] MEDS ORDERED: Ergocalciferol 1.25 MG(50,000 UNITS) CAP PO SCH (09:00)
[2018-02-11 09:18] LABS: Magnesium 2.4 mg/dL (1.6-2.6); Phosphorus 2.9 mg/dL (2.3-4.7)
[2018-02-11] MEDS: Bupropion 150 MG SR TAB PO SCH (10:55)
[2018-02-11] MEDS: Ascorbic Acid 500 mg Chewable Tablet PO SCH ×2 (10:55→20:08)
[2018-02-11] MEDS: Ferrous Sulfate 325 MG TAB PO SCH (10:55)
[2018-02-11] MEDS: Gabapentin 300 MG CAP PO SCH ×4 (10:55→20:08)
[2018-02-11] MEDS: Furosemide 40 MG TAB PO SCH ×2 (10:56→14:25)
[2018-02-11] MEDS ORDERED: Potassium Chloride 20 MEQ TAB PO SCH ×2 (11:00→14:45)
[2018-02-11 11:57] LABS: ANA Symphony (Qualitative) Negative (Negative); EliA Vaculitis New Method **** NEW METHOD ****; Mitochondrial Ab 0.9 U/mL (<4 Negative); dsDNA IgG Antibody 0.7 IU/mL (<10 Negative)
--- NOTE | 2018-02-11 12:07 | ULT ---
ULTRASOUND GUIDED PARACENTESIS: HISTORY: New ascites. COMPARISON: None. FINDINGS: Technically successful ultrasound-guided paracentesis. A total of 3250 mL of yellow-colored ascites was aspirated. No immediate or post procedure complication. TECHNIQUE: Consent was obtained to perform an ultrasound-guided paracentesis. The patient's abdomen was evaluat ed. Right lower quadrant was deemed appropriate. The skin was prepped and draped in sterile fashion . 1% Lidocaine, buffered with sodium bicarbonate, was used for local anesthesia. Under ultrasound g uidance, a 5 Chinese 7 cm [place] Antibodies[employer] catheter was advanced into the peritoneal space. Via vacuum bottles, a total of 3350 mL of yellow-color ascites was aspirated. The patient tolerated the procedure well. No immediate or post procedure complications. IMPRESSION: Technically successful ultrasound-guided paracentesis. POS: [facility]ILL[place]
[2018-02-11 13:19] LABS: Potassium 3.4 mmol/L (3.5-5.1)
[2018-02-11 14:26] LABS: BF Color Colorless; Body Fluid Source PARACENTESIS FLD; Clarity Hazy (Clear); Tube # EDTA
[2018-02-11 14:27] LABS: BF RBC Count - Manual 5 /cumm; BF WBC/Nonhematics Ct. - Manua 48 /cumm
[2018-02-11 14:33] LABS: BF Segmented Neutrophils 4 %; Cell Count Non Hematic 69 %; Lymphocytes 27 %
[2018-02-11 14:59] VITALS: BMI 20.9
[2018-02-12 05:10] LABS: #Eosinphils 0.1 thou/uL (0.0-0.7); #Lymphocytes 0.9 thou/uL (1.20-3.40); #Monocytes 0.5 thou/uL (0.11-0.59); #Neutrophils 3.8 thou/uL (1.40-6.50); %Basophils 0.6 % (0.0-1.0); %Eosinophils 1.5 % (0.0-10.0); %Lymphocytes 17.7 % (21.0-51.0); %Monocytes 8.9 % (0.0-10.0); %Neutrophils 71.3 % (42.0-75.0); Hemoglobin 8.1 g/dL (14.0-18.0); Mean Corpuscular HGB CONC 31.5 g/dL (32.0-36.0); Mean Corpuscular Hemoglobin 24.2 pg (27.0-31.0); Mean Corpuscular Volume 76.9 fl (80.0-94.0); Mean Platelet Volume 5.5 fL (7.4-10.4); Platelet Count 155 thou/uL (130-400); RBC Distribution Width 17.4 % (11.5-14.5); Red Blood Cell (RBC) Count 3.34 mill/uL (4.70-6.10); White Blood Cell (WBC) Count 5.3 thou/uL (4.8-10.8)
[2018-02-12 05:14] LABS: ALT (SGPT) 16 U/L (8-55); AST (SGOT) 22 U/L (5-34); Albumin 1.5 g/dL (3.5-5.0); Alkaline Phosphatase 184 U/L (40-150); Anion Gap 5 mmol/L (10-20); BUN (Urea Nitrogen) 4 mg/dL (8.4-25.7); Bilirubin, Total 0.5 mg/dL (0.2-1.2); Calc. Creatinine Clearance 107 mL/min (70-130); Calcium 7.1 mg/dL (7.8-10.44); Carbon Dioxide 28 mmol/L (22-29); Chloride 104 mmol/L (98-107); Estimated GFR-MDRD Greater than 90; Globulin 2.8 g/dL (2.4-3.5); Glucose 81 mg/dL (70-105); Phosphorus 2.4 mg/dL (2.3-4.7); Potassium 3.8 mmol/L (3.5-5.1); Protein, Total 4.3 g/dL (6.0-8.3); Sodium 133 mmol/L (136-145)
[2018-02-12] MEDS ORDERED: Potassium Chloride 20 MEQ TAB PO SCH (08:00)
[2018-02-12 08:20] LABS: Albumin, Fluid 0.6 g/dL (.)
[2018-02-12] MEDS: Gabapentin 300 MG CAP PO SCH ×2 (08:39→13:12)
[2018-02-12] MEDS: Furosemide 40 MG TAB PO SCH ×2 (08:39→13:11)
[2018-02-12] MEDS: Ferrous Sulfate 325 MG TAB PO SCH (08:39)
[2018-02-12] MEDS: Ascorbic Acid 500 mg Chewable Tablet PO SCH (08:39)
[2018-02-12] MEDS: Bupropion 150 MG SR TAB PO SCH (08:39)
--- NOTE | 2018-02-12 08:44 | PDOC.FM ---
- Subjective Subjective: No acute events overnight. Wants to go home. States that his edema is a little better. Asked me to come back after his breakfast and to not interrupt him with the physical exam. He was unhappy this am and feels like a lab rat. - Objective MAR Reviewed: Yes Vital Signs & Weight: Vital Signs (12 hours) Temp Pulse Resp BP BP Pulse Ox 02/12/18 07:45 98.3 F 84 16 100/67 98 02/12/18 07:38 98.6 F 77 16 02/12/18 04:00 98.6 F 77 16 106/68 96 Weight Admit Weight 71.713 kg Weight 65.726 kg I&O: 02/11/18 02/12/18 02/13/18 06:59 06:59 06:59 Intake Total 1465 1575 Output Total 2550 1570 Balance -1085 5 Result Diagrams: 02/12/18 04:45 02/12/18 04:45 <Mary Lala - Last Filed: 02/12/18 08:55> - Objective Vital Signs & Weight: Vital Signs (12 hours) Temp Pulse Resp BP BP Pulse Ox 02/12/18 11:11 98.6 F 73 18 105/67 98 02/12/18 07:45 98.3 F 84 16 100/67 98 02/12/18 07:38 98.6 F 77 16 02/12/18 04:00 98.6 F 77 16 106/68 96 Weight Admit Weight 71.713 kg Weight 65.726 kg I&O: 02/11/18 02/12/18 02/13/18 06:59 06:59 06:59 Intake Total 1465 1575 Output Total 2550 1570 Balance -1085 5 Result Diagrams: 02/12/18 04:45 02/12/18 04:45 <Wai Johnson - Last Filed: 02/12/18 12:20> Phys Exam - Physical Examination Constitutional: NAD no goiter no increased work of breathing Psychiatric: A&O x 3 <Mary Lala - Last Filed: 02/12/18 08:55> Dx/Plan (1) Malnutrition related to chronic disease Code(s): E46 - UNSPECIFIED PROTEIN-CALORIE MALNUTRITION Status: Acute (2) Anasarca Code(s): R60.1 - GENERALIZED EDEMA Status: Acute (3) Ascites Code(s): R18.8 - OTHER ASCITES Status: Acute (4) Bilateral lower extremity edema Code(s): R60.0 - LOCALIZED EDEMA Status: Acute (5) Hypoalbuminemia Code(s): E88.09 - OTH DISORDERS OF PLASMA-PROTEIN METABOLISM, NEC Status: Acute (6) Hypotension Status: Acute (7) History of gastric cancer Code(s): Z85.028 - PERSONAL HISTORY OF OTHER MALIGNANT NEOPLASM OF STOMACH Status: Resolved (8) Microcytic anemia Code(s): D50.9 - IRON DEFICIENCY ANEMIA, UNSPECIFIED Status: Acute - Plan Plan: Anasarca, suspect chronic malnutrition- - Suspect chronic malnutrition from hx of gastric adenocarcinoma s/p whipple procedure vs malignancy - dietitian recommends low salt, high protein diet, and vit d supplementation - CT abd w/wo showed large amount of ascites, SC soft tissue edema, pitting, 3+ - urine studies not consistent with nephrotic syndrome - BNP WNL - phosph normal, mg normal - Calcium corrects to 8.9 - pt can be discharged with close outpatient follow-up and further management of chronic malnutrition - Continue lasix inpatient BID, but may transition to once a day outpatient to prevent hypotension. Hypoalbuminemia - pt has hypoalbuminemia we think is from chronic malnutrition possibly from malabsorption or decreased appetite. - prealbumin low and CT read shows ascites and SC edema - paracentesis not consistent with portal hypertension or exudative process such as malignancy Microcytic anemia - chronic, however lower than most recent labs - FOBT negative - Iron low - Pt currently on iron supplementation Hypotension, resolved - Asymptomatic. Likely dt intravascular depletion 2/2 low oncotic pressure. - monitor vitals Elevated AST and Alk Phos - Unclear etiology - abd imaging as above - GGT elevated Ppx: SCDs and frequent ambulation Code Full Diet: low salt, high protein <Mary Lala - Last Filed: 02/12/18 08:55> Attending Addendum - Attending Addendum Date/Time: 02/12/18 [id number] I personally evaluated the patient and discussed the management with Dr. Lala I agree with the History, Examination, Assessment and Plan documented above with any addition or exceptions noted below.Paracentesis yesterday with 3 liters fluid removed SAAG less 1.1 cytology pending will infuse albumin and stable for dismissal home with outpatient f/u one week. Reviewed dietary recommendations with patient. <Wai Johnson - Last Filed: 02/12/18 12:20>
[2018-02-12] MEDS ORDERED: Cyanocobalamin (Vitamin B-12) 1,000 MCG TAB PO SCH (09:00)
[2018-02-12] MEDS ORDERED: Cyanocobalamin 1000 MCG/ML VIAL IM SCH (10:00)
[2018-02-12] MEDS ORDERED: Thiamine HCl 200 MG/2 ML VIAL SLOW IVP SCH (10:00)
[2018-02-12] MEDS ORDERED: Magnesium Oxide 400 MG TAB PO SCH (11:30)
[2018-02-12 11:43] LABS: Folate (Folic Acid) 11.1 ng/mL (7.0-31.4)
[2018-02-12 11:47] VITALS: BP 105/67; TEMP 98.6
[2018-02-12] MEDS ORDERED: Albumin 25% 25 GM/100 ML BOT IVPB ONE (12:00)
--- NOTE | 2018-02-12 12:46 | EKG ---
Test Reason : Blood Pressure : / mmHG Vent. Rate : 076 BPM Atrial Rate : 076 BPM P-R Int : 172 ms QRS Dur : 060 ms QT Int : 396 ms P-R-T Axes : 050 012 004 degrees QTc Int : 445 ms Normal sinus rhythm Low voltage QRS Septal infarct , age undetermined Possible Lateral infarct , age undetermined Abnormal ECG Confirmed by LACI BEEBE, CHRISTIAN ([id number]), food editor LIZZ MARINA ([id number]) on 02/12/2018 12:45:50 PM Referred By: Confirmed By:CHRISTIAN AGUERO MD
[2018-02-13 07:34] LABS: Lipase-Fluid Less than 3 U/L (.)
== END 2018-02-12 14:28 | disposition home or self-care (01) ==
LOC: ERS 18:05 → 2SW 22:03
PROVIDERS: ADMIT Family Medicine; ATTEND Family Medicine
PROC: 0W9G3ZX Drainage of Peritoneal Cavity, Percutaneous Approach, Diagnostic (ICD-10-PCS; principal; 2018-02-11)
DX: R18.8 Other ascites (principal); K74.60 Unspecified cirrhosis of liver; E46 Unspecified protein-calorie malnutrition; E88.09 Other disorders of plasma-protein metabolism, not elsewhere classified; I95.9 Hypotension, unspecified; D50.9 Iron deficiency anemia, unspecified; K21.9 Gastro-esophageal reflux disease without esophagitis; Z85.028 Personal history of other malignant neoplasm of stomach; Z79.899 Other long term (current) drug therapy; Z87.891 Personal history of nicotine dependence
CPT/HCPCS: 36415; 49083; 71045; 74178; 80053; 81003; 82042; 82180; 82274; 82306; 82390; 82570; 82607; 82728; 82746; 82947; 82977; 83516; 83540; 83550; 83690; 83735; 83880; 84100; 84134; 84156; 84157; 84300; 84425; 84443; 84446; 84590; 84597; 84630; 85025; 85060; 85610; 85730; 86038; 86225; 86704; 86706; 86708; 86803; 87340; 88112; 88305; 89051; 93005; 93306; 96365; 96366; 96375; 99406; A4216; G0378; J1940; P9047

== ENCOUNTER 2018-02-14 18:04 | Emergency (ER) | payer OTHER ==
[2018-02-14 18:34] LABS: Bilirubin Negative (Negative); Blood, Urine Negative (Negative); Clarity CLEAR (Clear); Glucose, Urine (Dipstick) Negative (Negative); Leukocyte Negative (Negative); Nitrite Negative (Negative); Protein, Urine (Dipstick) Negative (Neg-Trace); Specific Gravity, Urine 1.003 (1.002-1.036); Urobilinogen 0.2 mg/dL (0.2-1.0); pH, Urine 7.5 (5.0-9.0)
[2018-02-14 18:55] LABS: ALT (SGPT) 18 U/L (8-55); AST (SGOT) 28 U/L (5-34); Albumin 1.7 g/dL (3.5-5.0); Alkaline Phosphatase 164 U/L (40-150); Anion Gap 11 mmol/L (10-20); BUN (Urea Nitrogen) 5 mg/dL (8.4-25.7); Bilirubin, Total 0.3 mg/dL (0.2-1.2); CK (CPK) 77 U/L (30-200); Calc. Creatinine Clearance 0 mL/min (70-130); Calcium 7.4 mg/dL (7.8-10.44); Carbon Dioxide 23 mmol/L (22-29); Chloride 106 mmol/L (98-107); Estimated GFR-MDRD Greater than 90; Globulin 2.7 g/dL (2.4-3.5); Glucose 66 mg/dL (70-105); Protein, Total 4.4 g/dL (6.0-8.3); Sodium 136 mmol/L (136-145)
[2018-02-14 19:00] LABS: Troponin I 0.013 ng/mL (< 0.028)
== END 2018-02-14 20:37 | disposition home or self-care (01) ==
LOC: ERS 18:04
DX: K76.9 Liver disease, unspecified (principal); R18.8 Other ascites; F50.2 Bulimia nervosa; F17.210 Nicotine dependence, cigarettes, uncomplicated; Z79.899 Other long term (current) drug therapy
CPT/HCPCS: 36415; 80053; 81003; 82553; 83880; 84484; 93005; 94760

== ENCOUNTER 2018-03-24 19:09 | Inpatient (IN) | payer OTHER ==
[2018-03-24] MEDS ORDERED: Acetaminophen 500 MG TAB ONE (20:00)
[2018-03-24] MEDS ORDERED: Ibuprofen 200 MG TAB ONE (20:08)
[2018-03-24] MEDS ORDERED: cefTRIAXone\\ROCEPHIN 2 GM VIAL ONE (21:04)
[2018-03-24] MEDS ORDERED: Azithromycin 500 MG VIAL ONE (21:04)
[2018-03-24 21:12] LABS: Hemoglobin 5.5 g/dL (14.0-18.0)
[2018-03-24 21:27] LABS: ALT (SGPT) 38 U/L (8-55); AST (SGOT) 45 U/L (5-34); Albumin 1.2 g/dL (3.5-5.0); Alkaline Phosphatase 258 U/L (40-150); Anion Gap 9 mmol/L (10-20); BUN (Urea Nitrogen) 8 mg/dL (8.4-25.7); Band 42 % (5-11); Bilirubin, Total 2.8 mg/dL (0.2-1.2); CK (CPK) 64 U/L (30-200); Calc. Creatinine Clearance 0 mL/min (70-130); Calcium 6.5 mg/dL (7.8-10.44); Carbon Dioxide 25 mmol/L (22-29); Chloride 106 mmol/L (98-107); Estimated GFR-MDRD Greater than 90; Globulin 2.6 g/dL (2.4-3.5); Hypochromia MODERATE=16-30 cells (100X) (0-5/hpf); Lipase Less than 4 U/L (8-78); Lymphocytes 1 % (21-51); MDiff Complete? YES; Mean Corpuscular HGB CONC 30.3 g/dL (32.0-36.0); Mean Corpuscular Hemoglobin 24.2 pg (27.0-31.0); Mean Corpuscular Volume 79.7 fL (78.0-98.0); Mean Platelet Volume 10.4 fL (7.4-10.4); Neutrophil 57 % (42-75); Nucleated RBC 3 % (0); PLT Morphology Comment Appears Adequate; Platelet Count 140 thou/uL (130-400); Potassium 3.4 mmol/L (3.5-5.1); Protein, Total 3.8 g/dL (6.0-8.3); Red Blood Cell (RBC) Count 2.26 mill/uL (4.70-6.10); Sodium 137 mmol/L (136-145); Target Cells MODERATE= 6-15 cells (100X) (0-1/hpf); White Blood Cell (WBC) Count 12.3 thou/uL (4.8-10.8)
[2018-03-24 21:29] LABS: Glucose 53 mg/dL (70-105)
[2018-03-24 21:30] LABS: CKMB 0.2 ng/mL (0-6.6)
[2018-03-24 21:33] LABS: INR-International Normal Ratio 2.2; Prothrombin Time 24.6 SEC (12.0-14.7)
[2018-03-24 21:34] LABS: PTT 51.1 SEC (22.9-36.1)
[2018-03-24] MEDS ORDERED: Dextrose 50% Abboject 50 ML SYRINGE ONE (22:02)
--- NOTE | 2018-03-24 22:43 | PDOC.FPRHP ---
- History of Present Illness Chief Complaint: weakness History of Present Illness: Mr. Bush presents with complaint of dizziness and no energy for 1 day. He believes his iron is low. He has had loss of appetite for past 3-4 days and has not been taking medications regularly since that time. Reports weakness in LE and has stayed in bed past several days. He says his blood pressure is also usually low when he feels like this but he was unable to check it at home. Uses marijuana for his appetite but it has not been effective recently. Port is not currently being used. Has hx of ascites, denies any history of liver disease. 3.5L peritoneal fluid removed 1 month ago ED Course: Fluid rescuscitation, labs, CXR, initiation of blood transfusion, intubation - Allergies/Adverse Reactions Allergies Allergy/AdvReac Type Severity Reaction Status Date / Time No Known Allergies Allergy Verified 08/23/17 09:55 - Home Medications Medication Instructions Recorded Confirmed Type Gabapentin [Neurontin] 300 mg PO QID 06/29/17 02/09/18 History Ascorbic Acid [Vitamin C] 1 tab PO BID 02/09/18 02/09/18 History Ferrous Sulfate 1 tab PO QAM 02/09/18 02/09/18 History Loperamide HCl [Loperamide] 2 mg PO PRN PRN 02/09/18 02/09/18 History Pantoprazole [Protonix] 40 mg PO DAILY 02/09/18 02/09/18 History buPROPion HCl [buPROPion HCl SR] 150 mg PO QAM 02/09/18 02/09/18 History Cholecalciferol [Vitamin D3] 1,000 units PO HS #30 tab 02/12/18 Rx Cholecalciferol [Vitamin D3] 10,000 units PO DAILY #30 tab 02/12/18 Rx Furosemide [Lasix] 40 mg PO DAILY #30 tab 02/12/18 Rx Lactose-Reduced Food [Ensure 237 ml PO BID #60 liquid 02/12/18 Rx Enlive] Potassium Chloride [K-Dur] 20 meq PO QAM-WM #30 tab 02/12/18 Rx - History PMHx:Gastric cancer, Vitamin D deficiency, chronic low back pain, ascites, thenar muscle atrophy, hypotension due to drugs, anasarca, anemia PSHx: R cubital tunnel release 2015. Colonoscopy March 25, 2014. Whipple 2015 FHx: Mother has hx of cancer Social: 1/2 ppd, 40 pack years. Hx alcohol abuse. Quit drinking alcohol a couple weeks ago. Uses marijuana regularly to increase appetite. Lives with son. - Review of Systems General: reports: fever/chills, weight/appetite/sleep changes, fatigue, other ( unsure of weight change. loss of appetite). denies: night sweats Eyes: reports: other. denies: eye pain, vision changes ENT: denies: nasal congestion, rhinorrhea Respiratory: reports: shortness of breath, exercise intolerance. denies: cough Cardiovascular: reports: edema, orthopnea. denies: chest pain, palpitation Gastrointestinal: denies: nausea, vomiting, diarrhea, constipation, GI bleeding Genitourinary: denies: incontinence, dysuria Skin: denies: rashes, lesions, jaundice Musculoskeletal: denies: pain, tenderness Neurological: reports: weakness. denies: numbness Psychological: denies: anxiety, depression - Vital signs BP: [87/55] HR: [90] RR: [20] Tmax: [101.7] Pox: [97]% on [3L] Wt: [72.2 kg] - Physical Exam Constitutional: NAD, awake, alert and oriented, other (thin) HEENT: normocephalic and atraumatic, PERRLA, EOMI, conjunctiva clear, TM's clear and intact, grossly normal hearing, other (poor dentition) Neck: supple, trachea midline, no JVD Heart: RRR, normal S1/S2, pulses present Lungs: CTAB, no respiratory distress, no wheezing Abdomen: soft, non-tender, bowel sounds present, no masses/distention ( distended with fluid wave) Neurological: no focal deficit, other (LE muscle weakness b/l) Skin: no rash/lesions, other (sweaty) Heme/Lymphatic: no unusual bruising or bleeding, no petechia Psychiatric: normal mood and affect, good judgment and insight Additional comment: No gross blood or melena on rectal exam. 2+ pitting edema bilateral LE to hip FMR H&P: Results - Labs Result Diagrams: 03/25/18 06:14 03/25/18 06:14 Lab results: WBC 12.3 thou/uL (4.8-10.8) H 03/24/18 20:57 Hgb 5.5 g/dL (14.0-18.0) L* 03/24/18 20:57 Hct 18.0 % (42.0-52.0) L 03/24/18 20:57 MCV 79.7 fL (78.0-98.0) 03/24/18 20:57 Plt Count 140 thou/uL (130-400) 03/24/18 20:57 Band Neuts % (Manual) 42 % (5-11) H 03/24/18 20:57 Sodium 137 mmol/L (136-145) 03/24/18 20:57 Potassium 3.4 mmol/L (3.5-5.1) L 03/24/18 20:57 Chloride 106 mmol/L (98-107) 03/24/18 20:57 Carbon Dioxide 25 mmol/L (22-29) 03/24/18 20:57 BUN 8 mg/dL (8.4-25.7) L 03/24/18 20:57 Creatinine 0.64 mg/dL (0.6-1.3) 03/24/18 20:57 Glucose 53 mg/dL (70-105) L* 03/24/18 20:57 Lactic Acid 2.3 mmol/L (0.5-2.2) H 03/24/18 20:57 Calcium 6.5 mg/dL (7.8-10.44) L 03/24/18 20:57 Total Bilirubin 2.8 mg/dL (0.2-1.2) H 03/24/18 20:57 AST 45 U/L (5-34) H 03/24/18 20:57 ALT 38 U/L (8-55) 03/24/18 20:57 Alkaline Phosphatase 258 U/L (40-150) H 03/24/18 20:57 Creatine Kinase 64 U/L (30-200) 03/24/18 20:57 CK-MB (CK-2) 0.2 ng/mL (0-6.6) 03/24/18 20:57 Serum Total Protein 3.8 g/dL (6.0-8.3) L 03/24/18 20:57 Albumin 1.2 g/dL (3.5-5.0) L 03/24/18 20:57 Lipase Less than 4 U/L (8-78) L 03/24/18 20:57 - EKG Interpretation EKG: pending - Radiology Interpretation Chest x-ray Status: image reviewed by me Additional comment: Left lung pleural and parenchymal changes FMR H&P: A/P - Problem List (1) Acute respiratory failure with hypoxia Current Visit: Yes Status: Acute Code(s): J96.01 - ACUTE RESPIRATORY FAILURE WITH HYPOXIA (2) Alcohol abuse Current Visit: Yes Status: Acute Code(s): F10.10 - ALCOHOL ABUSE, UNCOMPLICATED (3) CAP (community acquired pneumonia) Current Visit: Yes Status: Acute Code(s): J18.9 - PNEUMONIA, UNSPECIFIED ORGANISM Qualifiers: Qualified Code(s): J18.1 - Lobar pneumonia, unspecified organism (4) Elevated INR Current Visit: Yes Status: Acute Code(s): R79.1 - ABNORMAL COAGULATION PROFILE (5) Hypoglycemia Current Visit: Yes Status: Acute Code(s): E16.2 - HYPOGLYCEMIA, UNSPECIFIED (6) Hypokalemia Current Visit: Yes Status: Acute Code(s): E87.6 - HYPOKALEMIA (7) Lactic acidosis Current Visit: Yes Status: Acute Code(s): E87.2 - ACIDOSIS (8) Marijuana abuse Current Visit: Yes Status: Acute Code(s): F12.10 - CANNABIS ABUSE, UNCOMPLICATED (9) Septic shock Current Visit: Yes Status: Acute Code(s): A41.9 - SEPSIS, UNSPECIFIED ORGANISM; R65.21 - SEVERE SEPSIS WITH SEPTIC SHOCK (10) Severe anemia Current Visit: Yes Status: Acute Code(s): D64.9 - ANEMIA, UNSPECIFIED (11) Tobacco abuse Current Visit: Yes Status: Acute Code(s): Z72.0 - TOBACCO USE (12) Ascites Current Visit: Yes Status: Acute Code(s): R18.8 - OTHER ASCITES Qualifiers: Qualified Code(s): R18.8 - Other ascites (13) Bilateral lower extremity edema Current Visit: Yes Status: Acute Code(s): R60.0 - LOCALIZED EDEMA (14) Elevated AST (SGOT) Current Visit: Yes Status: Acute Code(s): R74.0 - NONSPEC ELEV OF LEVELS OF TRANSAMNS & LACTIC ACID DEHYDRGNSE (15) Elevated alkaline phosphatase level Current Visit: Yes Status: Acute (16) Hypoalbuminemia Current Visit: Yes Status: Acute Code(s): E88.09 - OTH DISORDERS OF PLASMA- PROTEIN METABOLISM, NEC (17) Hypotension Current Visit: Yes Status: Acute (18) History of gastric cancer Current Visit: Yes Status: Resolved Code(s): Z85.028 - PERSONAL HISTORY OF OTHER MALIGNANT NEOPLASM OF STOMACH - Plan 58 year old male presented with weakness likely 2/2 sepsis and anemia. Acute hypoxic respiratory failure - DDX: septic shock vs. fluid overload - Recent EF on echo 01/2018 was 50-55%, CXR without obvious fluid overload - Intubated in ED (03/24) - Initial ABG 7.2/83, rate increased slightly, repeat pending this a.m. - CCU sedation protocol - Appreciate Dr. Maldonado's assistance with management Septic shock 2/2 CAP - s/p 4L NS in ED - on levophed - s/p rocephin/azithro 03/24 - one dose - Vanc, zosyn started 03/25 - BCx, UCx pending Acute on chronic anemia - s/p 2 units pRBC received - pending FOBT. No gross blood or melena on DAMION. - INR 2.2 Hypoglycemia - IV D5 1/2 NS - accucheck q2h - s/p 1 amp D50 Hx gastric cancer s/p whipple 1.5 yrs ago - Possible etiology for anemia - Will consider GI consult once further information acquired Hypoalbuminemia - Likely 2/2 poor intake - Will supplement when tolerating PO - Appreciate dietary recommendations Hypokalemia - Improved in a.m. BMP - Continue to monitor, CCU electrolyte protocol Hypocalcemia - Monitor Hx of alcohol abuse - Has not drank in 2 weeks - Likely outside window for DTs - ASE protocol FMR H&P: Upper Level - Pertinent history 58 yo M who presented with cc of weakness. At the time of my H&P patient was intubated in the ICU and therefore I was not able to obtain further history from patient. However, according to family, patient had been feeling progressively week over the last couple of weeks with decreased appetite. He presented with bandemia, fever and elevated WBC as well as hypotension. He was started on fluid resuscitation in the ER and with persistent hypotension was started on levophed after 1u pRBC transfusion began. A femoral line was placed and shortly thereafter patient complained of dyspnea and became unresponsive. He was subsequently intubated and admitted to the ICU. - Pertinent findings VS: 97/72 P 69 Tmax 101.7 SpO2 98% T 94.9 Gen: intubated, sedated, easily arousable and makes eye contact and nods/shakes head to questions HEENT: PERRL, no JVD, ET tube in place CV: RRR, no murmur noted PULM: Scattered rhonchi BL ABD: soft, midly distended, BS present SKIN: R femoral line in place EXT: 2+ pitting edema to hip BL - Plan Date/Time: 03/24/182227 I, Ella Mckeon MD, PGY-3, have evaluated this patient and agree with findings/ plan as outlined by internal sales engineer resident. Pertinent changes/additions are listed here. 58 year old male presented with weakness found to have septic shock and anemia 1. Acute hypoxic respiratory failure: On ventilator as above. ABG pending this a.m. Sedation protocol while intubated and MAP goal > 65 2. Septic shock 2/2 CAP: Levophed gtt. MAP goal 65. Vanc and zosyn. BCx, UCx pending. 3. Anemia, subsequent hypovolemia: s/p 2u pRBC, post-transfusion H&H. Rectal exam negative for melena or gross blood. Hemoccult sent. FOBT pending. 4. Supratherapeutic INR. Holding DVT ppx. Will trend. Likely 2/2 hepatic dysfunction but is new for patient. 5. Hypoglycemia: s/p 1 amp D50 and started on D5 1/2 NS. Accucheck q2 until persistently WNL. 6. Hx gastric cancer s/p whipple 1.5 yrs ago 7. Hypoalbuminemia: Dietary repletion when tolerating PO. Consider albumin infusion if indiated but BP improving dramatically. 8. Hypocalcemia 9. Hx of alcohol abuse: ASE protocol. Likely source of many electrolyte abnormalities. Electrolyte protocol. Has not drank in > 2 weeks. PPX: Holding DVT with supratherapeutic INR. Monitor INR. On protonix.
--- NOTE | 2018-03-24 23:08 | RAD ---
CHEST ONE VIEW: HISTORY: Weakness and vomiting. COMPARISON: 02/10/2018 FINDINGS: There are pleural and parenchymal changes in the left lung base, which obscure the left hemidiaphragm and the left heart border. Normal configuration of the cardiac silhouette. Pulmonary vessels are normal. Adequate aeration of the upper lungs. No pneumothorax. Stable right-sided Mediport catheter. There is also some increased opacification in the left perihilar region, suggesting a left perihilar infiltrate. IMPRESSION: Pleural and parenchymal changes in the left lung base. Continued surveillance is recommended. POS: [facility]
[2018-03-24] MEDS ORDERED: Norepinephrine 8 MG/0.9% NS 250 ML ONE (23:51)
[2018-03-25] MEDS ORDERED: Succinylcholine Chloride 20 MG/ML 10 ml SYRINGE FS ONE (00:06)
[2018-03-25 00:57] LABS: Actual Bicarbonate (HCO3a) 19.2 mEq/L (22-28); Base Excess (BEa) -7.5 mEq/L (-2.0 to +3.0); CO2 Tension 44.7 mmHg (35.0-45.0); O2 Tension (PaO2) 83.5 mmHg (> 80.0); pH, Arterial 7.25 (7.35-7.45)
[2018-03-25 00:58] LABS: Calcium, Ionized 1.1 mmol/L (1.12-1.30); Hematocrit-ABG 36.1 % (42.0-52.0); Hemoglobin (Hb) 8.9 g/dL (14.0-18.0)
[2018-03-25 00:59] LABS: ALV-art Gradient 568.625 (0-20); Analyzer IN Cardio ER; Peep/CPAP 7.5 cmH2O; Puncture Site LRA
[2018-03-25 01:04] LABS: Bilirubin Moderate (Negative); Blood, Urine Negative (Negative); Clarity CLEAR (Clear); Glucose, Urine (Dipstick) Negative (Negative); Leukocyte Negative (Negative); Nitrite Negative (Negative); Protein, Urine (Dipstick) Negative (Neg-Trace); Specific Gravity, Urine 1.017 (1.002-1.036)
[2018-03-25 01:26] LABS: Lactic Acid 6.2 mmol/L (0.5-2.2)
[2018-03-25] MEDS ORDERED: Sodium Chloride 0.9% 1,000 ML IV SCH (01:32)
[2018-03-25] MEDS ORDERED: Ondansetron HCl/PF 4 MG/2 ML Vial IVP PRN (01:36)
[2018-03-25] MEDS ORDERED: Ondansetron ODT 4 MG TAB SL PRN (01:36)
[2018-03-25] MEDS ORDERED: DISCONTINUE PREVIOUS NARCOTIC PAIN MEDICATIONS AND BENZODIAZEPINES FS SCH (01:51)
[2018-03-25] MEDS ORDERED: Fentanyl BOLUS 250 ML IVPB PRN (01:51)
[2018-03-25] MEDS ORDERED: Propofol BOLUS 1,000 MG/100 ML VIAL IV PRN (01:51)
[2018-03-25] MEDS ORDERED: fentaNYL Citrate/PF 2,000 MCG in Sodium Chloride 0.9% 60 ML IV SCH (01:51)
[2018-03-25] MEDS ORDERED: Lorazepam 2 MG/ML VIAL SLOW IVP PRN (01:51)
[2018-03-25 01:55] VITALS: BMI 25.7
[2018-03-25] MEDS: Propofol 1,000 MG/100 ML VIAL IV PRN ×3 (02:18→22:54)
[2018-03-25] MEDS ORDERED: Phytonadione 10 MG/ML AMP SC SCH (02:45)
[2018-03-25] MEDS ORDERED: Dextrose 50% Abboject 50 ML SYRINGE ONE (04:11)
[2018-03-25] MEDS ORDERED: Dextrose 50% Abboject 50 ML SYRINGE SLOW IVP PRN (04:19)
[2018-03-25] MEDS ORDERED: Dextrose 5% in Water 1,000 ML IV PRN (04:19)
--- NOTE | 2018-03-25 04:24 | PDOC.EVN ---
Event Note - Event Note Event Note: Patient seen and examined by me in ER on 03/24/2018@ 22:15. Case discussed with Dr. Browning and Mike. Briefly this is a 58 year old black male with a history of chronic back pain, gastric cancer s/p subtotal gastrectomy procedure (2017), alcohol use and recent hospitalization for anasarca thought to be secondary to malnutrition presented c/o generalized weakness, decreased appetite. Symptoms present for last 3-4 days. Denies any cough, URI symptoms, ill conmtacts. Denies any abdominal pain, N/V/D. Subj fever/chills. PMH/PSH/Meds/ SH/All reviewed and agree with resident's documentation. BP 90/56 P98 RR20 99% on 2L NC General- awake /alert; oriented x 3; Lungs CTA b/l; CV-RRR Abd-soft; nt/nd; ( +) fluid wave Ext- 3-4 + pitting edema Labs: WBC 12.3 Diff 57N/42B; H/H 5.5/18; plt= 140 Xj=662 K+=3.4 Gg=373 CO2=25 BUN=8 Cr=0.64 Gluc=53 lactic acid 2.3->6.2 Tbili=2.8 AST-45 EAGLE 38 alb 1.2 total protein=4.4 U/A - negative CXR- left perihilar infiltrate While in ER, patient became SOB and obtunded. Intubated by ER MD. Had central line placed immediately prior to this. A/P: 1) Sepsis secondary top CAP - Admit to CCU - Continue IVF, pressors. Wean pressors as tolerated. - monitor urine output 2) Acute respiratory failure - continue vent support -monitor ABGs -consult pulmonary 3) Anemia - Hgb 8.1 at end of January; now Hgb= 5.5 - transfuse 2 units pRBCs; recheck H/H 2 hours post transfusion - had recent EGD in [place] with esophagitis and hiatal hernia as only findings. - consult GI for further evaluation 4) Hypoglycemia - serial accuchecks - IVF changed to D5 NS 5) Anasarca - Consider salt poor albumin 6) Protein calorie malnutrition - consider tube feeds
[2018-03-25] MEDS ORDERED: Ventilator Sedation Protocol 1 EACH FS ONE (04:39)
[2018-03-25] MEDS ORDERED: CCU Electrolyte Replacement 1 EACH FS ONE (04:39)
[2018-03-25] MEDS ORDERED: Potassium Phosphate 12 MMOL in Sodium Chloride 0.9% 250 ML 250 ML IV PRN (04:45)
[2018-03-25] MEDS ORDERED: CCU ELECTROLYTE REPLACEMENT PROTOCOL FS PRN (04:45)
[2018-03-25] MEDS ORDERED: Potassium Phosphate 9 MMOL in Sodium Chloride 0.9% 100 ML IVPB PRN (04:45)
[2018-03-25] MEDS ORDERED: Magnesium Oxide 400 MG TAB PO PRN (04:45)
[2018-03-25] MEDS ORDERED: Potassium Phosphate 15 MMOL in Sodium Chloride 0.9% 250 ML 250 ML IV PRN (04:45)
[2018-03-25] MEDS ORDERED: Magnesium 2 GM/NS 0.9% 100 ML 2 GM in Premix Bag 1 BAG IVPB PRN (04:45)
[2018-03-25] MEDS: Dextrose 5 %-0.45 % NaCl 1,000 ML IV SCH ×3 (04:56→23:47)
[2018-03-25] MEDS: Piperacillin/Tazobactam 3.375 GM in Sodium Chloride 0.9% 100 ML IVPB SCH ×4 (05:01→23:46)
[2018-03-25 06:34] LABS: Band 28 % (5-11); Hemoglobin 10.9 g/dL (14.0-18.0); MDiff Complete? YES; Mean Corpuscular HGB CONC 30.3 g/dL (32.0-36.0); Mean Corpuscular Hemoglobin 24.8 pg (27.0-31.0); Mean Corpuscular Volume 82.1 fL (78.0-98.0); Mean Platelet Volume 7.2 fL (7.4-10.4); Monocytes 3 % (0-10); Neutrophil 69 % (42-75); PLT Morphology Comment Appears Adequate; Platelet Count 151 thou/uL (130-400); RBC Distribution Width 21.1 % (11.5-14.5); Reflex for Review?? NO; Vacuoles MODERATE; White Blood Cell (WBC) Count 29.1 thou/uL (4.8-10.8)
[2018-03-25 06:36] LABS: ALT (SGPT) 48 U/L (8-55); AST (SGOT) 74 U/L (5-34); Albumin 1.3 g/dL (3.5-5.0); Alkaline Phosphatase 316 U/L (40-150); Anion Gap 12 mmol/L (10-20); BUN (Urea Nitrogen) 9 mg/dL (8.4-25.7); Bilirubin, Total 3.4 mg/dL (0.2-1.2); Calc. Creatinine Clearance 100 mL/min (70-130); Calcium 6.5 mg/dL (7.8-10.44); Carbon Dioxide 22 mmol/L (22-29); Chloride 108 mmol/L (98-107); Estimated GFR-MDRD Greater than 90; Globulin 2.7 g/dL (2.4-3.5); Glucose 108 mg/dL (70-105); Potassium 3.5 mmol/L (3.5-5.1); Sodium 138 mmol/L (136-145)
--- NOTE | 2018-03-25 07:19 | PDOC.FM ---
- Subjective Subjective: Patient remains sedated and ventilated in the ICU. Minimally responsive to pain. - Objective MAR Reviewed: Yes Vital Signs & Weight: Vital Signs (12 hours) Temp Pulse Resp Pulse Ox 03/25/18 06:00 18 03/25/18 04:00 18 03/25/18 02:24 84 03/25/18 02:00 94.6 F L 79 18 100 Weight Weight 72.2 kg Most Recent Monitor Data Heart Rate from ECG 66 NIBP 124/90 NIBP BP-Mean 95 Respiration from ECG 18 SpO2 100 I&O: 03/24/18 03/25/18 03/26/18 06:59 06:59 06:59 Intake Total 965 Output Total 30 Balance 935 Result Diagrams: 03/25/18 06:14 03/25/18 06:14 Phys Exam - Physical Examination Mechanically ventilated HEENT: moist MMs Neck: supple Respiratory: no wheezing rales bilaterally, mechanically ventilated Cardiovascular: RRR, no significant murmur, no rub Gastrointestinal: soft, non-tender, no distention, positive bowel sounds Musculoskeletal: no edema, pulses present GCS 6 Skin: cap refill <2 seconds Dx/Plan (1) Acute respiratory failure with hypoxia Code(s): J96.01 - ACUTE RESPIRATORY FAILURE WITH HYPOXIA Status: Acute (2) Septic shock Code(s): A41.9 - SEPSIS, UNSPECIFIED ORGANISM; R65.21 - SEVERE SEPSIS WITH SEPTIC SHOCK Status: Acute (3) CAP (community acquired pneumonia) Code(s): J18.9 - PNEUMONIA, UNSPECIFIED ORGANISM Status: Acute Qualifiers: Laterality: left Lung location: upper lobe of lung Qualified Code(s): J18.1 - Lobar pneumonia, unspecified organism (4) Severe anemia Code(s): D64.9 - ANEMIA, UNSPECIFIED Status: Acute (5) Hypoglycemia Code(s): E16.2 - HYPOGLYCEMIA, UNSPECIFIED Status: Acute (6) Lactic acidosis Code(s): E87.2 - ACIDOSIS Status: Acute (7) Hypokalemia Code(s): E87.6 - HYPOKALEMIA Status: Acute (8) Hypocalcemia Code(s): E83.51 - HYPOCALCEMIA Status: Acute (9) Transaminitis Code(s): R74.0 - NONSPEC ELEV OF LEVELS OF TRANSAMNS & LACTIC ACID DEHYDRGNSE Status: Acute (10) Elevated bilirubin Code(s): R17 - UNSPECIFIED JAUNDICE Status: Acute (11) Elevated INR Code(s): R79.1 - ABNORMAL COAGULATION PROFILE Status: Acute (12) Alcohol abuse Code(s): F10.10 - ALCOHOL ABUSE, UNCOMPLICATED Status: Acute (13) Marijuana abuse Code(s): F12.10 - CANNABIS ABUSE, UNCOMPLICATED Status: Acute (14) Tobacco abuse Code(s): Z72.0 - TOBACCO USE Status: Acute (15) Anasarca Code(s): R60.1 - GENERALIZED EDEMA Status: Acute (16) Ascites Code(s): R18.8 - OTHER ASCITES Status: Acute Qualifiers: Ascites type: other type Qualified Code(s): R18.8 - Other ascites (17) History of gastric cancer Code(s): Z85.028 - PERSONAL HISTORY OF OTHER MALIGNANT NEOPLASM OF STOMACH Status: Resolved - Plan Plan: 58 y/o M presents with weakness and decreased energy is found to be in septic shock and acute hypoxic respiratory failure Septic Shock 2/2 gram neg zeferino bacteremia Pt initially presented in septic shock with low pressures, Tmax 101.7, WBC 12.3 , 42% bands. Only source found has been L perihilar infiltrate and gram negative zeferino bacteremia. -Pt has R femoral central line and on 20mcg/min of levophed s/p 5L NS in the ED - titrate pressor down to maintain MAP 65 -Vanc day 1, Zosyn day 1 s/p 1 dose of rocephin and azithromycin -BCx pending -Repeat CXR -Trend lactic acid Acute Hypoxic Respiratory Failure Patient required intubation after receiving fluid resuscitation, likely 2/2 volume overload. -SIMV, Rate 18, PEEP 7.5, FiO2 100%, TV 500 -on propofol for sedation -Trend daily ABG's while on vent Community Acquired Pneumonia CXR showed L perihilar infiltrate -Vanc day 1, Zosyn day 1 -Repeat CXR Severe Anemia Hb 5.5 initially, no signs of bleeding -Transfuse 2 U PRBC -Trend H/H -FOBT -Consult GI Hypoglycemia Glucose 53 -On D5 1/2 NS @ 100 -Accuchecks q2h Hypokalemia -Electrolyte replacement protocol Lactic Acidosis Lactic acid 2.3->6.2->4.9, s/p 5L NS boluses -Continue to trend Transaminitis Pt has h/o EtOH abuse and ascites, no known liver disease, but has had a paracentesis before -Trend Polysustance abuse -On sedation for now -monitor h/o Gastric Cancer s/p resection with Whipple Ascites Unknown cause -Monitor
[2018-03-25] MEDS: Vancomycin HCl 1 GM in Premix Bag 1 BAG IVPB SCH ×2 (07:49→19:30)
[2018-03-25] MEDS: Norepinephrine 8 MG/0.9% NS 250 ML IVPB SCH ×2 (08:29→17:52)
--- NOTE | 2018-03-25 08:53 | RAD ---
PORTABLE CHEST 1 VIEW: DATE: 03/25/18. TIME: 12:15 a.m. HISTORY: Respiratory failure. FINDINGS: Comparison is made to the exam of 03/24/18. There has been interval placement of endotracheal tube with tip about 2.5 cm above the level of the c bandar. A nasogastric tube can be traced into the stomach. Right subclavian Port-A-Cath remains in p lace. The heart size is normal. There is consolidation of the left lung base. No pneumothoraces ar e seen. The left costophrenic angle has been excluded from the film. POS: [facility]
[2018-03-25] MEDS ORDERED: Vancomycin HCl 1 GM in Premix Bag 1 BAG IVPB SCH (09:00)
[2018-03-25] MEDS ORDERED: Pantoprazole 40 MG VIAL IVP SCH (09:00)
[2018-03-25 10:53] LABS: Hemoglobin 11.3 g/dL (14.0-18.0)
[2018-03-25 11:12] LABS: Lactic Acid 3.7 mmol/L (0.5-2.2)
[2018-03-25] MEDS: Albumin 25% 25 GM/100 ML BOT IVPB SCH ×2 (13:17→19:25)
--- NOTE | 2018-03-25 14:22 | CON ---
DATE OF CONSULTATION: 03/25/2018 HISTORY OF PRESENT ILLNESS: Eleazar is a gentleman, who presented with weakness, fatigue, and decreas ed appetite for several days. He has a history of cirrhosis and has undergone paracentesis in the past. Apparently, he had a rapid decline in the emergency room and was intubated. He subsequently has been admitted to the Critical Care Unit. He is unable to provide history. PAST MEDICAL HISTORY: 1. Remarkable for a T4 N2 gastric adenocarcinoma status post Whipple in October of last year and followed by chemotherapy. 2. History reflux disease. 3. History of alcohol and tobacco use. As of last month, he was still smoking and drinking. FAMILY HISTORY: Negative for lung disease in early age. REVIEW OF SYSTEMS: Not obtainable. PHYSICAL EXAMINATION: VITAL SIGNS: Blood pressure 112/77, heart rate 77, respiratory rate is per mechanical ventilation. He is afebrile. HEENT: Pupils react. Sclerae is anicteric. NECK: Supple. LUNGS: Remarkable for coarse equal breath sounds. HEART: Regular rhythm. S1 and S2 are normal. ABDOMEN: Soft, no guarding. EXTREMITIES: Without clubbing, cyanosis, or edema. LABORATORY DATA: White count is 29.1, hemoglobin 10.9, platelets 151,000. Sodium 138, potassium 108 , bicarbonate 22, BUN 9, creatinine 0.8. Lactate level of 4.9-3.7, bilirubin is 3.4, alkaline phosph atase 316, AST 74. Albumin was 1.3. INR is 2.2. Chest radiograph shows infiltrates in the left base. IMPRESSION: 1. Respiratory failure secondary to pneumonia? 2. Ascites with hypoalbuminemia and coagulopathy. 3. History of surgical resection of a T4 N2 adenocarcinoma of the stomach. Status post paracentesis showed no malignant cells in his peritoneal fluid. PLAN: Continue mechanical ventilation, empiric antimicrobial therapy, would suggest Gastroenterology input. Blood gases show pH 7.25, CO2 of 44, pO2 of 83, albumin may help with his oncotic pressure. Given th e extremely low serum albumin levels. We will be happy to follow with the other physician's caring f or him. Critical care time was 30 minutes.
[2018-03-25 18:10] LABS: Lactic Acid 2.8 mmol/L (0.5-2.2)
[2018-03-25 18:12] LABS: Anion Gap 11 mmol/L (10-20); BUN (Urea Nitrogen) 10 mg/dL (8.4-25.7); Calc. Creatinine Clearance 77 mL/min (70-130); Calcium 7.1 mg/dL (7.8-10.44); Carbon Dioxide 24 mmol/L (22-29); Chloride 107 mmol/L (98-107); Estimated GFR-MDRD 88; Glucose 145 mg/dL (70-105); Potassium 3.5 mmol/L (3.5-5.1); Sodium 138 mmol/L (136-145)
[2018-03-25] MEDS: Pantoprazole 40 MG VIAL IVP SCH (21:43)
[2018-03-26] MEDS: Albumin 25% 25 GM/100 ML BOT IVPB SCH ×4 (00:50→17:21)
--- NOTE | 2018-03-26 01:52 | CON ---
DATE OF CONSULTATION: 03/25/2018 REASON FOR CONSULTATION: MDDS. HISTORY OF PRESENT ILLNESS: This is a very pleasant 58-year-old gentleman who is currently intubated . He was noted to have decreasing urine output. His creatinine was less than 1. The patient can gi ve no further history. The patient was hypotensive on pressors. PAST MEDICAL HISTORY: Adenocarcinoma, Whipple procedure, reflux. SOCIAL HISTORY: No alcohol use or drug abuse. FAMILY HISTORY: Unobtainable. REVIEW OF SYSTEMS: Unobtainable. ALLERGIES: Reviewed. HOME MEDICATIONS: List reviewed. HOSPITAL MEDICATIONS: Reviewed. PHYSICAL EXAMINATION: GENERAL: The patient is resting. VITAL SIGNS: Afebrile, pulse 70, breathing at 16, blood pressure 112/77. OBJECTIVE: See above. Awake, alert, in no acute distress. GENERAL APPEARANCE AND MENTAL STATUS: Fair. HEAD/NECK: Normocephalic. Atraumatic. EYES: EOMI. No deformity. EARS: Clear. No ulcers. NOSE: Intact. No lesions. MOUTH: Clear. No discharge. THROAT: Clear. No exudate. LUNGS: Clear. No crackles. CARDIAC: S1, S2. No rub. ABDOMEN: Benign. BS+. GENITALIA/RECTUM: Xiao absent. BACK/EXTREMITIES: Edema 0+ Ulcer-. NEUROLOGICAL: The patient is resting. SKIN: Rash- Bruise-. LYMPHATICS: Edema- Ulcer-. LABORATORY DATA: Show creatinine is 1.04, which is increased from 0.8 and 0.6 earlier, potassium 3.5 . ASSESSMENT AND RECOMMENDATIONS: 1. Acute kidney injury with chronic kidney disease, with increase in creatinine, most likely due to decreased effective arterial blood volume. Continue hydration. 2. Hypertension, stable. 3. Anemia, stable. The patient is anuric, but urine output appears to have picked up in the last fe w hours. No indication for dialysis. We will follow renal function closely. Agree with current man agement and plan. Avoid nephrotoxic medication.
[2018-03-26 04:44] LABS: ALT (SGPT) 27 U/L (8-55); AST (SGOT) 34 U/L (5-34); Albumin 2.1 g/dL (3.5-5.0); Alkaline Phosphatase 173 U/L (40-150); Anion Gap 7 mmol/L (10-20); BUN (Urea Nitrogen) 11 mg/dL (8.4-25.7); Bilirubin, Total 5.5 mg/dL (0.2-1.2); Calc. Creatinine Clearance 79 mL/min (70-130); Calcium 7.3 mg/dL (7.8-10.44); Carbon Dioxide 26 mmol/L (22-29); Chloride 111 mmol/L (98-107); Estimated GFR-MDRD 90; Globulin 1.8 g/dL (2.4-3.5); Glucose 111 mg/dL (70-105); Protein, Total 3.9 g/dL (6.0-8.3); Sodium 141 mmol/L (136-145)
[2018-03-26 04:49] LABS: Band 41 % (5-11); Eosinophils 1 % (0-10); Hemoglobin 8.3 g/dL (14.0-18.0); Hypochromia SLIGHT = 6-15 cells (100X) (0-5/hpf); Lymphocytes 3 % (21-51); MDiff Complete? YES; Mean Corpuscular HGB CONC 31.5 g/dL (32.0-36.0); Mean Corpuscular Hemoglobin 25.4 pg (27.0-31.0); Mean Corpuscular Volume 80.8 fL (78.0-98.0); Mean Platelet Volume 13.8 fL (7.4-10.4); Neutrophil 55 % (42-75); Ovalocytes SLIGHT = 2-5 cells (100X) (0-1/hpf); PLT Morphology Comment Appears Decreased; Platelet Count 61 thou/uL (130-400); Potassium 2.8 mmol/L (3.5-5.1); RBC Distribution Width 20.3 % (11.5-14.5); Red Blood Cell (RBC) Count 3.26 mill/uL (4.70-6.10); Target Cells MODERATE= 6-15 cells (100X) (0-1/hpf); White Blood Cell (WBC) Count 9.1 thou/uL (4.8-10.8)
[2018-03-26] MEDS: Potassium Chloride 40 MEQ in Premix Bag 1 BAG IVPB PRN ×2 (05:30→12:54)
[2018-03-26] MEDS: Piperacillin/Tazobactam 3.375 GM in Sodium Chloride 0.9% 100 ML IVPB SCH ×3 (05:30→17:20)
[2018-03-26 07:11] LABS: Lactic Acid 2.2 mmol/L (0.5-2.2)
[2018-03-26 07:40] LABS: pH, Arterial 7.56 (7.35-7.45)
[2018-03-26 07:42] LABS: CO2 Tension 24.9 mmHg (35.0-45.0); O2 Tension (PaO2) 91.3 mmHg (> 80.0)
[2018-03-26 07:43] LABS: ALV-art Gradient 91.475 (0-20); Actual Bicarbonate (HCO3a) 21.7 mEq/L (22-28); Calcium, Ionized 1.1 mmol/L (1.12-1.30); Hemoglobin (Hb) 8.3 g/dL (14.0-18.0); Peep/CPAP 7.5 cmH2O; Puncture Site RRA
--- NOTE | 2018-03-26 07:59 | ADD-PRG ---
DATE OF SERVICE: 03/25/2018 Please add this as an addendum to the note of Dr. Miranda Fournier. Mr. Bush is a 58-year-old black man, who was admitted with probable sepsis from either pneumonia or possibly urinary tract infection. He was given fluid boluses and is currently on a Levophed infusio n. He is maintaining a MAP of around 80. He, however, has no urine output. We will continue with b road-spectrum antibiotics. We will consult Nephrology as he is likely going to begin to have a rise in his BUN and creatinine, and possibly may need dialysis.
[2018-03-26] MEDS: Vancomycin HCl 1 GM in Premix Bag 1 BAG IVPB SCH (08:08)
[2018-03-26] MEDS: Pantoprazole 40 MG VIAL IVP SCH ×2 (08:09→21:24)
--- NOTE | 2018-03-26 08:29 | CON ---
DATE OF CONSULTATION: 03/25/2018 REASON FOR CONSULTATION: Severe anemia, hemoccult positive stool. HISTORY OF PRESENT ILLNESS: Mr. Bush is a 58-year-old who made to the hospital yesterday diagnosed with pneumonia and was intubated. He came to the emergency room, he was weak and dizzy and was whee zing. He denied any overt pain, had been feeling ill for about one day when he was admitted. Appare ntly in the emergency room, he was found to be tachycardic and mildly hypotensive. Chest x-ray showe d left lower lobe pneumonia. Ultimately, he had respiratory failure and was intubated. On his labs, he was found to have a hemoglobin of 5.5 on admission, it was 8.1 on 02/12/2018, 7.8 on 02/10/2018. He has been running anemic since he was diagnosed with gastric cancer several months ago. He did prado ve an upper endoscopy in office on 12/27/2017, which showed normal anastomosis for modified Whipple s urgery and no active bleeding at that time. Here, there has been no overt signs of bleeding. He was found to be heme positive. He has had no bowel movements. His BUN has been normal. In talking wit h the patient, he is intubated. He nods his head no when asked, if he has been having any abdominal pain or vomiting at home, black tarry stools or overt bleeding at home. He sees Dr. Armendariz, he is u nclear of his last treatment. He was evaluated in January at this hospital, concern with anasarca, possible cirrhosis. He had an album in of 0.6 in his ascitic fluid on 02/11/2018. His albumin was 1.7 at that time albumin greater than 1.1. He had a hepatitis B core antibody positive, hepatitis C antibody negative, B surface ant igen negative, hepatitis B surface antibody was positive, positive GREER, negative smooth muscle antibo dy. He is to follow up with me in the office since that time, it was unclear what was on the anasarc a, but it was felt to be more and more malnutrition than cirrhosis. His last CAT scan on 02/09/2018 of the abdomen and pelvis was read as showing ascites, soft tissue edema, prior gastrojejunostomy, sm all left-sided effusion knows about it. REVIEW OF SYSTEMS: Unable to be obtained, presently the patient is intubated, but his family notes rudy andre really has not an appetite to eat at all. PAST MEDICAL HISTORY: 1. T4 N2 gastric adenocarcinoma, status post Whipple on 10/2010. Follow radiation and chemotherapy. 2. History of reflux. 3. History of alcohol and tobacco use. 4. History of drug use. 5. Recent workup for anasarca with serum ascitic albumin gradient greater than 1.1, serologic workup negative for any overt hepatitis. 6. Right cubital tunnel release in 2016. 7. Colonoscopy in 03/25/2014. 8. Whipple's in 2016. SOCIAL HISTORY: Still smoking and drinking alcohol. FAMILY HISTORY: Negative for lung disease or cirrhosis as far as family knows. MEDICATIONS AT HOME: Gabapentin, ascorbic acid, ferrous sulfate, loperamide, pantoprazole, bupropion , Calciferol, furosemide. PRESENT MEDICATIONS: Albumin q.6 hours, dextrose, p.r.n. fentanyl, magnesium oxide, magnesium sulfat e, morphine p.r.n., Zosyn, potassium replacement, and vancomycin. PHYSICAL EXAMINATION: GENERAL: The patient is intubated. His NG tube is in place, about 10 mL coffee-ground material in t he NG tube. VITAL SIGNS: Blood pressure 137/82, heart rate 71, temperature is 96.1. LUNGS: Clear. HEART: Regular rate and rhythm without clicks or murmurs. ABDOMEN RECTAL: Protuberant, soft. There is no shifting, dullness, or fluid wave. No palpable hepa tosplenomegaly. EXTREMITIES: There is no clubbing, cyanosis or edema. LABORATORY STUDIES: Hemoglobin is 5.5, MCV of 79 on admission. Presently, hemoglobin is 11.3 after 2 units of blood, this leaves me to believe that his hemoglobin was not actually 5.5 and probably was more close to his baseline of 8.1. Sodium 138, potassium is 3.5, chloride 108, BUN is 9, creatinine 0.8, bilirubin 3.4, up from 2.8 yesterday, it was 0.3 on 02/13/2018, AST and ALT are 45 and 38, more line phosphatase 258, albumin 1.2, protein 3.8. CEA was 5.2 in December. Reviewed the CAT scan from Ap ril shows non-nodular liver. It was noncontrast, so it was difficult to make much of that, normal st udy except for the presence of ascites. Microbiology: Stool Hemoccult positive. Blood cultures, gr am negative rods, E. coli. ASSESSMENT: 1. The patient was admitted for respiratory failure and sepsis. He has got E. coli in his blood, et iology was unclear. He has had a Whipple in the past. He was reported to have pneumonia, although h is x-ray just shows some infiltration in left lower chest and ascites that may be present there . His hemoglobin was 5.5 on admission, although after only 2 units of blood, it is now 11, so probab ly he is closer to his baseline of 8. He is Hemoccult positive, however. 2. The patient does have a history of Whipple for advanced adenocarcinoma of the stomach, T4 N2, cou ple of years ago. Just 3 months ago, he had upper endoscopy showed no evidence of recurrence of dise ase, but is inability to eat, severe malnutrition and persistent anemia, heme positive stool do raise a concern for possible recurrence of anastomotic ulcers in the stomach. RECOMMENDATIONS: We will go ahead and proceed with EGD tomorrow.
[2018-03-26] MEDS: Propofol 1,000 MG/100 ML VIAL IV PRN (08:51)
--- NOTE | 2018-03-26 09:11 | PDOC.FM ---
- Subjective Subjective: Patient is more alert this AM, still on some mild sedation while on ventilator. He reports nods his head yes when asked if he has abdominal pain. He is able to follow some commands, but falls asleep between them. - Objective MAR Reviewed: Yes Vital Signs & Weight: Vital Signs (12 hours) Temp Pulse Resp BP 03/26/18 08:25 16 03/26/18 08:00 20 03/26/18 06:46 72 84/60 L 03/26/18 06:00 18 03/26/18 04:00 97.7 F 23 H 03/26/18 02:00 20 03/26/18 00:00 97.6 F 12 03/25/18 22:00 16 Weight Admit Weight 72.2 kg Weight 72.2 kg Most Recent Monitor Data Heart Rate from ECG 70 NIBP 83/61 NIBP BP-Mean 65 Respiration from ECG 21 SpO2 98 I&O: 03/25/18 03/26/18 03/27/18 06:59 06:59 06:59 Intake Total 965 3477 200 Output Total 30 1042 100 Balance 935 2435 100 Result Diagrams: 03/26/18 04:12 03/26/18 04:12 Phys Exam - Physical Examination Constitutional: NAD On ventilator sclera icteric, PERRL bilaterally, ET and OG tubes in place coarse breath sounds bilaterally in all lung coy Cardiovascular: RRR, no significant murmur, no rub Gastrointestinal: positive bowel sounds distended, tender to palpation diffusely, no guarding Musculoskeletal: no edema, pulses present Skin: normal turgor, cap refill <2 seconds Dx/Plan (1) Acute respiratory failure with hypoxia Code(s): J96.01 - ACUTE RESPIRATORY FAILURE WITH HYPOXIA Status: Acute (2) Septic shock Code(s): A41.9 - SEPSIS, UNSPECIFIED ORGANISM; R65.21 - SEVERE SEPSIS WITH SEPTIC SHOCK Status: Acute (3) CAP (community acquired pneumonia) Code(s): J18.9 - PNEUMONIA, UNSPECIFIED ORGANISM Status: Acute Qualifiers: Laterality: left Lung location: lower lobe of lung Qualified Code(s): J18.1 - Lobar pneumonia, unspecified organism (4) Severe anemia Code(s): D64.9 - ANEMIA, UNSPECIFIED Status: Acute (5) Hypoglycemia Code(s): E16.2 - HYPOGLYCEMIA, UNSPECIFIED Status: Acute (6) Lactic acidosis Code(s): E87.2 - ACIDOSIS Status: Acute (7) Hypokalemia Code(s): E87.6 - HYPOKALEMIA Status: Acute (8) Hypocalcemia Code(s): E83.51 - HYPOCALCEMIA Status: Acute (9) Transaminitis Code(s): R74.0 - NONSPEC ELEV OF LEVELS OF TRANSAMNS & LACTIC ACID DEHYDRGNSE Status: Acute (10) Elevated bilirubin Code(s): R17 - UNSPECIFIED JAUNDICE Status: Acute (11) Elevated INR Code(s): R79.1 - ABNORMAL COAGULATION PROFILE Status: Acute (12) Alcohol abuse Code(s): F10.10 - ALCOHOL ABUSE, UNCOMPLICATED Status: Acute (13) Marijuana abuse Code(s): F12.10 - CANNABIS ABUSE, UNCOMPLICATED Status: Acute (14) Tobacco abuse Code(s): Z72.0 - TOBACCO USE Status: Acute (15) Anasarca Code(s): R60.1 - GENERALIZED EDEMA Status: Acute (16) Ascites Code(s): R18.8 - OTHER ASCITES Status: Acute Qualifiers: Ascites type: other type Qualified Code(s): R18.8 - Other ascites (17) History of gastric cancer Code(s): Z85.028 - PERSONAL HISTORY OF OTHER MALIGNANT NEOPLASM OF STOMACH Status: Resolved - Plan Plan: 58 y/o M presents with weakness and decreased energy is found to be in septic shock and acute hypoxic respiratory failure Septic Shock 2/2 gram neg zeferino bacteremia Pt initially presented in septic shock with low pressures, Tmax 101.7, WBC 12.3 , 42% bands. Only source found has been L perihilar infiltrate and gram negative zeferino bacteremia. -Pt has R femoral central line and was initially requiring levophed, but this was discontinued overnight. His current MAP is 65 Will d/c R fem central line today -Vanc day 2, Zosyn day 2 s/p 1 dose of rocephin and azithromycin -BCx pending Acute Hypoxic Respiratory Failure Patient required intubation after receiving fluid resuscitation, likely 2/2 volume overload. pH 7.56, pCO2 24.9, pO2 91.3 -PEEP 7.5, FiO2 30%, TV 500 - pt was doing a spontaneous breathing trial for about 5 minutes while I was in the room and did very well, may be able to wean off the vent later this AM vs this PM -on propofol for sedation -Trend daily ABG's while on vent Community Acquired Pneumonia CXR showed L perihilar infiltrate -Vanc day 2, Zosyn day 2 -Could also be from ascites Severe Anemia Hb 5.5 initially, no signs of bleeding s/p 2 U PRBC's, the Hb improved to 11 and is now 8.3 - around the pt's baseline. FOBT positive -GI has been consulted, appreciate recs -Plan for EGD today Hypoglycemia Glucose low initially, has been in the low 100's while on D5 1/2 NS -D5 1/2 NS @ 100 -Accuchecks q2h -AM cortisol was 8.7 Hypokalemia -Electrolyte replacement protocol Lactic Acidosis, resolved Lactic acid 2.3->6.2->4.9->2.2, s/p fluids Transaminitis Pt has h/o EtOH abuse and ascites, no known liver disease, but has had a paracentesis before -Trend -GI on board, appreciate recs Polysustance abuse -On sedation for now -monitor h/o Gastric Cancer s/p resection with Whipple Ascites Unknown cause -Monitor
[2018-03-26] MEDS: Dextrose 5 %-0.45 % NaCl 1,000 ML IV SCH ×2 (09:54→21:23)
--- NOTE | 2018-03-26 10:10 | PRG ---
DATE OF SERVICE: 03/26/2018 SUBJECTIVE: This is a 58-year-old gentleman being seen for acute kidney injury. The patient denies any nausea, vomiting, or chest pain. PHYSICAL EXAMINATION: GENERAL: Patient is awake, alert. VITAL SIGNS: Afebrile, pulse 86, breathing at 16, blood pressure 83/61. GENERAL APPEARANCE AND MENTAL STATUS: Fair. HEAD/NECK: Normocephalic, atraumatic. EYES: EOMI. No deformity. EARS: Clear. No ulcers. NOSE: Intact. No lesions. MOUTH: Clear. No discharge. THROAT: Clear. No exudate. LUNGS: Clear. No crackles. CARDIAC: S1, S2. No rub. ABDOMEN: Benign. BS+. GENITALIA/RECTUM: Xiao absent. BACK/EXTREMITIES: Edema 0+ Ulcer-. NEUROLOGICAL: The patient is resting. SKIN: Rash- Bruise- LYMPHATICS: Edema- Ulcer-. LABORATORY DATA: Show hemoglobin 8.3, potassium was 2.8, creatinine 1.0. ASSESSMENT AND RECOMMENDATIONS: 1. Acute kidney injury on chronic kidney disease. The patient is nonoliguric. No indication for di alysis. 2. Hypokalemia. Recommend aggressive potassium replacement. 3. Anemia, stable. 4. Medication based on glomerular filtration rate appropriate. No indication for dialysis at this t sandra.
[2018-03-26 11:17] LABS: Potassium 3.1 mmol/L (3.5-5.1)
--- NOTE | 2018-03-26 11:18 | RAD ---
FRONTAL VIEW CHEST: COMPARISON: Previous day. INDICATION: ICU patient, ventilated with respiratory insufficiency. FINDINGS: There has been slight progression of the endotracheal tube which does approximate he proximal right m ainstem, although is partially obscured by overlying artifact. Enteric catheter traverses the left u pper quadrant. There is persistent pleural and parenchymal density of the inferior left chest. Patc hy right basilar opacity is seen. There is vascular congestion. Right side chest port remains. The re are numerous artifacts limiting detail. IMPRESSION: 1. Interval advancement of the endotracheal tube with the tip now residing at the proximal right dariusz nstem bronchus, partially obscured by overlying artifact. Recommend slight retraction and imaging fo llowup. 2. Bibasilar densities more notable on the left, where there is evidence of pleural fluid and adjace nt consolidation. 3. Edema. 4. Findings telephoned to patient's physician, Dr. Jules Maldonado, at 0940 hours 03/26/18. CODE CR POS: [facility]
--- NOTE | 2018-03-26 11:36 | PQF ---
CLINICAL DOCUMENTATION IMPROVEMENT CLARIFICATION FORM: ICD-10 Updated PLEASE DO AN ADDENDUM TO THE PROGRESS NOTE WITH ANY DOCUMENTATION UPDATES OR ADDITIONS AND CARRY THROUGH TO DC SUMMARY. THANK YOU. DATE: 03/26 ATTN: DR. VIVIENNE GATICA/ DR. VAHE CARPENTER Please exercise your independent, professional judgment in responding to the clarification form. Clinical indicators are provided on the bottom of this form for your review. Please check appropriate box(s): [ x ] Acute blood loss anemia [ ] Anemia: [ x ] Nutritional [ ] Acquired [ ] Chronic Anemia: [ ] Blood loss [ ] Simple [ ] Due to Vitamin B12 Deficiency [ ] Other [ ] Anemia of Chronic Disease (please specify ) [ ] Other diagnosis [ ] Unable to determine For continuity of documentation, please document condition throughout progress notes and discharge summary. Thank You. CLINICAL INDICATORS - SIGNS / SYMPTOMS / LABS H/H ON ADMIT: 5.5/18.0 ER PHYSICIAN DOCUMENTATION 03/24: ACUTE ANEMIA ATTENDING H&P 03/24: IMPRESSION/PLAN: 10) ACUTE SEVERE ANEMIA ATTENDING PROGRESS NOTES 03/25 & : ACUTE SEVERE ANEMIA RISK FACTORS: HX GASTRIC CANCER S/P WHIPPLE PROCEDURE FOBT POSITIVE SEVERE PC MALNUTRITION TREATMENTS: TRANSFUSION 2U PRBC (03/24 & ) GI CONSULT THANK YOU! Debbie (This form is maintained as a part of the permanent medical record) 2014 [email or web address] All Rights Reserved Debbie Deras RN, BSN [email or web address] Office: [phone] [facility] HOSPITALMick
--- NOTE | 2018-03-26 13:46 | ADD-PRG ---
DATE OF SERVICE: 03/26/2018 Please add this as an addendum to the note of Dr. Miranda Fournier. Mr. Bush is much more awake and leslie rt this morning, although still on the propofol drip. He is maintaining a MAP of between 65 and 70. He is alert, nods head appropriately to questions. He is having minimal abdominal pain and his abdo men is slightly distended. His vital signs are as follows, his blood pressure is 85/60, MAP is 65, r espirations on the ventilator 16. He is afebrile. Two blood cultures are growing out E. coli and we are continuing him on Zosyn. His labs, this mornin g, revealed a potassium level of only 2.8 and this is being corrected. We will continue to follow wi th the substance abuse nurse. We can likely also start to deescalate his antibiotic coverage.
--- NOTE | 2018-03-26 15:45 | PRG ---
DATE OF SERVICE: 03/26/2018 SUBJECTIVE: Mr. Bush's blood pressure has been in the 80s-90s, heart rate is in the 70s, respirato ry rates in the teens. He had a spontaneous breathing trial this morning and meets criteria for extubation. OBJECTIVE: LUNGS: Clear. HEART: Regular rhythm. ABDOMEN: Soft and nontender. EXTREMITIES: Without clubbing, cyanosis, or edema. LABORATORY DATA: Blood cultures are 2/2 positive for E. coli. White count is 9.1, hemoglobin 8.3. He still has 41% bands on his peripheral smear. Electrolytes: Sodium 141, potassium 2.8, chloride 111, bicarbonate 26, BUN 11, creatinine 1.02, more line phosphatase is still elevated. IMPRESSION: Escherichia coli bacteremia, ? of lung source. Escherichia coli certainly can be a lung pathogen, but it is not a common lung pathogen. He does have bibasilar infiltrates on chest radiograph. Perhaps this is aspiration mediated. It would not be unreasonable to order a hepatobiliary ultrasound. With his history of ascites, I suppose this could be of peritoneal origin. Dr. Pollard saw him last admission, and I am sure he would be willing to see him again since the source of Escherichia coli is not entirely with 100% certainty clear. I reviewed the past CT, which showed atelectasis of the lung bases, fatty infiltration of his liver, ascites. No gallbladder was visualized on the CT. I did find a 10/2016 pathology specimen, which was a gallbladder showing chronic cholecystitis. His vancomycin can be discontinued. He had a 3 g drop in hemoglobin, which I suspect is predominantl y related to his volume resuscitation, but he is on the schedule for endoscopy. Hopefully, we can ex tubate him after endoscopy today. Critical care time was 30 minutes.
--- NOTE | 2018-03-26 18:09 | OP ---
DATE OF PROCEDURE: 03/26/2018 PROCEDURE: Esophagogastroduodenoscopy with biopsy. PREOPERATIVE DIAGNOSIS: Acute anemia, and history of gastric cancer. PROCEDURE: Informed consent was obtained from the patient's family. The bite block was placed and t he endoscope was advanced to the small bowel without difficulty. The esophageal mucosa was normal. There was a large 3 cm ulcer in the cardia of the stomach extending up to the GE junction that was be st viewed in retroflexed views. This had ischemic necrotic appearing base. The edges of the ulcer w ere biopsied. There is no active bleeding or focal vessel to indicate cautery. The more distal body of the stomach around the gastrojejunostomy appeared normal. The anastomosis itself appeared health y and open. The jejunal mucosa was normal. There were two limbs intubated; however, one limb appear ed to just be a short blind pouch. IMPRESSION: 1. A 3-cm ulcer in the cardia of the stomach extending towards the GE junction, best viewed in the r etroflexed position. There is no active bleeding or focal visible vessel. This was a large ulcer wi th necrotic appearing base. Biopsies were obtained from the ulcer to evaluate for malignancy. 2. Status post gastrojejunostomy with healthy anastomosis and otherwise normal esophageal and small bowel and distal gastric mucosa. RECOMMENDATIONS: 1. Proton pump inhibitor twice daily. 2. Follow trend of the hemoglobin. 3. Await histopathology.
[2018-03-26 19:49] LABS: Vancomycin, Trough 19.6 ug/mL
[2018-03-26 19:51] LABS: Anion Gap 10 mmol/L (10-20); BUN (Urea Nitrogen) 10 mg/dL (8.4-25.7); Calc. Creatinine Clearance 82 mL/min (70-130); Calcium 7.6 mg/dL (7.8-10.44); Carbon Dioxide 23 mmol/L (22-29); Chloride 112 mmol/L (98-107); Estimated GFR-MDRD Greater than 90; Glucose 60 mg/dL (70-105); Potassium 3.4 mmol/L (3.5-5.1); Sodium 142 mmol/L (136-145)
[2018-03-27] MEDS ORDERED: Acetaminophen 325 MG TAB PO PRN (00:43)
[2018-03-27] MEDS ORDERED: Furosemide 40 MG/4 ML VIAL SLOW IVP SCH (01:00)
[2018-03-27] MEDS ORDERED: Furosemide 40 MG/4 ML VIAL ONE (01:05)
[2018-03-27] MEDS: Piperacillin/Tazobactam 3.375 GM in Sodium Chloride 0.9% 100 ML IVPB SCH ×3 (01:07→12:12)
[2018-03-27] MEDS: Acetaminophen 325 MG TAB PO PRN (01:08)
[2018-03-27] MEDS: Albumin 25% 25 GM/100 ML BOT IVPB SCH ×2 (02:24→06:22)
[2018-03-27 05:00] LABS: Acanthocytes SLIGHT = 1-5 cells (100X) (None Seen); Band 48 % (5-11); Eosinophils 1 % (0-10); Hypochromia MODERATE=16-30 cells (100X) (0-5/hpf); Lymphocytes 3 % (21-51); MDiff Complete? YES; Mean Corpuscular HGB CONC 31.3 g/dL (32.0-36.0); Mean Corpuscular Volume 79.9 fL (78.0-98.0); Mean Platelet Volume 15.4 fL (7.4-10.4); Monocytes 4 % (0-10); Neutrophil 44 % (42-75); Nucleated RBC 1 % (0); Ovalocytes SLIGHT = 2-5 cells (100X) (0-1/hpf); PLT Morphology Comment Appears Decreased; Platelet Count 32 thou/uL (130-400); RBC Distribution Width 20.9 % (11.5-14.5); Red Blood Cell (RBC) Count 2.81 mill/uL (4.70-6.10); Target Cells MODERATE= 6-15 cells (100X) (0-1/hpf); White Blood Cell (WBC) Count 9.2 thou/uL (4.8-10.8)
[2018-03-27 05:16] LABS: ALT (SGPT) 26 U/L (8-55); AST (SGOT) 33 U/L (5-34); Albumin 2.7 g/dL (3.5-5.0); Alkaline Phosphatase 187 U/L (40-150); Anion Gap 10 mmol/L (10-20); BUN (Urea Nitrogen) 9 mg/dL (8.4-25.7); Bilirubin, Total 7.6 mg/dL (0.2-1.2); Calc. Creatinine Clearance 79 mL/min (70-130); Calcium 7.7 mg/dL (7.8-10.44); Carbon Dioxide 24 mmol/L (22-29); Chloride 112 mmol/L (98-107); Estimated GFR-MDRD 90; Globulin 1.6 g/dL (2.4-3.5); Glucose 64 mg/dL (70-105); Protein, Total 4.3 g/dL (6.0-8.3); Sodium 143 mmol/L (136-145)
[2018-03-27 05:19] LABS: Potassium 2.9 mmol/L (3.5-5.1)
[2018-03-27] MEDS: Potassium Chloride 40 MEQ in Premix Bag 1 BAG IVPB PRN (05:21)
[2018-03-27] MEDS ORDERED: Furosemide 40 MG TAB PO SCH (09:00)
[2018-03-27] MEDS: Pantoprazole 40 MG VIAL IVP SCH ×2 (09:06→22:05)
--- NOTE | 2018-03-27 09:15 | RAD ---
PORTABLE CHEST 1 VIEW: Date: 03/27/18 Time: 0431 hours HISTORY: Pneumonia, shortness of breath. FINDINGS/IMPRESSION: Comparison made with exam from previous day. Endotracheal and nasogastric tubes have been removed in the interim. Right-sided Port-A-Cath remains in place. Interval worsening of opacities in the right lung base has occurred. Opacities in the left lung base are unchanged. Left pleural effusion is again noted. No pneumothorax is seen. POS: [facility]
--- NOTE | 2018-03-27 09:21 | PDOC.FM ---
- Subjective Subjective: Patient is having some trouble breathing after being extubated. He reports some continued abdominal pain, but is also really hungry. He reports that the oxygen is helping him breathe. - Objective MAR Reviewed: Yes Vital Signs & Weight: Vital Signs (12 hours) Temp Pulse Resp Pulse Ox 03/27/18 08:00 97.6 F 03/27/18 07:20 99 03/27/18 07:18 84 26 H 99 03/27/18 03:21 82 16 94 L 03/27/18 01:05 91 28 H 98 03/26/18 23:15 86 L Weight Admit Weight 72.2 kg Weight 72.2 kg Most Recent Monitor Data Heart Rate from ECG 100 NIBP 84/53 NIBP BP-Mean 64 Respiration from ECG 13 SpO2 94 I&O: 03/26/18 03/27/18 03/28/18 06:59 06:59 06:59 Intake Total 3477 2229.9 320 Output Total 1042 2930 475 Balance 2435 -700.1 -155 Result Diagrams: 03/27/18 04:20 03/27/18 04:20 Phys Exam - Physical Examination Constitutional: NAD HEENT: moist MMs Respiratory: no wheezing rales in bilateral lung bases, pt on NC Cardiovascular: RRR, no significant murmur, no rub Gastrointestinal: soft mildly distended, normoactive bowel sounds, mildly tender diffusely Musculoskeletal: no edema, pulses present Neurological: non-focal, moves all 4 limbs Psychiatric: normal affect, A&O x 3 Skin: normal turgor, cap refill <2 seconds Dx/Plan (1) Acute respiratory failure with hypoxia Code(s): J96.01 - ACUTE RESPIRATORY FAILURE WITH HYPOXIA Status: Acute (2) Septic shock Code(s): A41.9 - SEPSIS, UNSPECIFIED ORGANISM; R65.21 - SEVERE SEPSIS WITH SEPTIC SHOCK Status: Acute (3) CAP (community acquired pneumonia) Code(s): J18.9 - PNEUMONIA, UNSPECIFIED ORGANISM Status: Acute Qualifiers: Laterality: left Lung location: lower lobe of lung Qualified Code(s): J18.1 - Lobar pneumonia, unspecified organism (4) Severe anemia Code(s): D64.9 - ANEMIA, UNSPECIFIED Status: Acute (5) Hypoglycemia Code(s): E16.2 - HYPOGLYCEMIA, UNSPECIFIED Status: Acute (6) Lactic acidosis Code(s): E87.2 - ACIDOSIS Status: Acute (7) Hypokalemia Code(s): E87.6 - HYPOKALEMIA Status: Acute (8) Hypocalcemia Code(s): E83.51 - HYPOCALCEMIA Status: Acute (9) Transaminitis Code(s): R74.0 - NONSPEC ELEV OF LEVELS OF TRANSAMNS & LACTIC ACID DEHYDRGNSE Status: Acute (10) Elevated bilirubin Code(s): R17 - UNSPECIFIED JAUNDICE Status: Acute (11) Elevated INR Code(s): R79.1 - ABNORMAL COAGULATION PROFILE Status: Acute (12) Alcohol abuse Code(s): F10.10 - ALCOHOL ABUSE, UNCOMPLICATED Status: Acute (13) Marijuana abuse Code(s): F12.10 - CANNABIS ABUSE, UNCOMPLICATED Status: Acute (14) Tobacco abuse Code(s): Z72.0 - TOBACCO USE Status: Acute (15) Anasarca Code(s): R60.1 - GENERALIZED EDEMA Status: Acute (16) Ascites Code(s): R18.8 - OTHER ASCITES Status: Acute Qualifiers: Ascites type: other type Qualified Code(s): R18.8 - Other ascites (17) History of gastric cancer Code(s): Z85.028 - PERSONAL HISTORY OF OTHER MALIGNANT NEOPLASM OF STOMACH Status: Resolved (18) Thrombocytopenia Code(s): D69.6 - THROMBOCYTOPENIA, UNSPECIFIED Status: Acute - Plan Plan: 58 y/o M presents with weakness and decreased energy is found to be in septic shock and acute hypoxic respiratory failure Septic Shock 2/2 gram neg zeferino bacteremia Pt initially presented in septic shock with low pressures, Tmax 101.7, WBC 12.3 , 42% bands. Only source found has been L perihilar infiltrate and gram negative zeferino bacteremia. Initially required levophed, but that has been titrated off. His MAP's have been 54-77. -Zosyn day 3 s/p 1 dose of rocephin and azithromycin. Vanc was d/c'd yesterday -BCx pending Acute Hypoxic Respiratory Failure Patient required intubation after receiving fluid resuscitation, likely 2/2 volume overload. Was extubated yesterday. -Lasix 40mg PO daily per pt's home regimen Community Acquired Pneumonia CXR showed L perihilar infiltrate Zosyn day 3 -Could also be from ascites vs true infiltrate, appears to be worsening Severe Anemia Hb 5.5 initially, no signs of bleeding s/p 2 U PRBC's, the Hb improved to 11 and is now 7 - around the pt's baseline. FOBT positive. EGD showed ulcer with necrotic base that was not actively bleeding. This was biopsied. -GI has been consulted, appreciate recs -Plan for EGD today -Peripheral smear Thrombocytopenia Platelets have been slowly downtrending, now 32. No signs of active bleeding -Will recheck PT/INR/PTT -Peripheral smear Hypoglycemia Glucose low initially, has been in the low 100's while on D5 / NS -AM cortisol was 8.7 Hypokalemia -Electrolyte replacement protocol Lactic Acidosis, resolved Lactic acid 2.3->6.2->4.9->2.2, s/p fluids Transaminitis Pt has h/o EtOH abuse and ascites, no known liver disease, but has had a paracentesis before -Trend -GI on board, appreciate recs Polysustance abuse -ASE protocol -monitor h/o Gastric Cancer s/p resection with Whipple Ascites Unknown cause -Monitor
[2018-03-27 09:26] LABS: INR-International Normal Ratio 1.4; PTT 47.6 SEC (22.9-36.1); Prothrombin Time 17.6 SEC (12.0-14.7)
[2018-03-27 10:10] LABS: Hemoglobin 7.8 g/dL (14.0-18.0); Mean Corpuscular HGB CONC 31.9 g/dL (32.0-36.0); Mean Corpuscular Hemoglobin 25.5 pg (27.0-31.0); Mean Corpuscular Volume 79.8 fL (78.0-98.0); Platelet Count 34 thou/uL (130-400); RBC Distribution Width 21.3 % (11.5-14.5); Red Blood Cell (RBC) Count 3.06 mill/uL (4.70-6.10); White Blood Cell (WBC) Count 9.9 thou/uL (4.8-10.8)
[2018-03-27 10:44] LABS: Band 25 % (5-11); Bite Cells SLIGHT = 2-5 cells (100X) (0-1/hpf); Eosinophils 1 % (0-10); Hypochromia SLIGHT = 6-15 cells (100X) (0-5/hpf); MDiff Complete? YES; Microcytosis MODERATE=15-30 cells (100X) (0-5/hpf); Monocytes 1 % (0-10); Neutrophil 73 % (42-75); Nucleated RBC 1 % (0); Ovalocytes MODERATE= 6-15 cells (100X) (0-1/hpf); PLT Morphology Comment Appears Decreased; Polychromasia MODERATE = 3-4 cells (100X) (0-2/hpf); Spherocytes SLIGHT = 1-5 cells (100X) (None Seen); Target Cells MODERATE= 6-15 cells (100X) (0-1/hpf)
[2018-03-27 11:01] LABS: Fibrinogen 170 mg/dL (253-463)
[2018-03-27 11:16] LABS: Reticulocyte Count 2.1 % (0.5-1.5)
[2018-03-27 12:05] LABS: FSP-Qualitative ABNORMAL (Normal); FSP-Semiquantitative >=40 & <80 mcg/mL (Less than 5)
--- NOTE | 2018-03-27 12:12 | PRG ---
DATE OF SERVICE: 03/27/2018 SERVICE: Pulmonary Medicine INTERVAL HISTORY: The patient is doing fine from a respiratory standpoint. He denies any current ch est pain, nausea, vomiting, fevers, chills, shortness of breath. He is otherwise in his usual state of health and has no specific complaints. His breathing is a little bit shallow. He indicates havin g increased work of breathing. Oxygen requirements come and go. He seems to be responding well to t he Lasix that he got at 1 o'clock in the morning. PHYSICAL EXAMINATION: VITAL SIGNS: Afebrile, pulse 99, blood pressure 94/62, respirations 35, saturation 95% on 2 liters n rupa cannula. GENERAL: The patient is awake, alert, in no apparent distress. LUNGS: Decent air entry. Crackles are present throughout bilateral lung coy. HEART: Normal rate, regular. ABDOMEN: Soft, nontender, nondistended. Bowel sounds are positive. MUSCULOSKELETAL: No cyanosis or clubbing. He has got diffuse 2-3+ pitting throughout. GENITOURINARY: Xiao catheter in place. NEUROLOGIC: Grossly nonfocal. LABORATORY DATA: WBC 9.9, hemoglobin 7.8, platelets 34,000 and down trending fairly precipitously. Creatinine 1.02, potassium 2.9. Sodium 143. Liver function studies are otherwise unremarkable. Blo od cultures growing E. coli in 2/2 which is pansensitive. Urine culture, and Influenza A and B are u nremarkable. Occult blood in the stool is positive. IMAGING: Chest x-ray demonstrates interval removal of endotracheal tube and nasogastric tube. Right -sided port catheter is present. There is a left-sided pleural effusion. There is bilateral pleural parenchymal abnormalities, possibly consistent with volume overload. ASSESSMENT: 1. Acute hypoxic respiratory failure. 2. Healthcare-associated pneumonia, possible. 3. Anasarca state. DISCUSSION AND PLAN: I will continue to diurese the patient until he returns to euvolemia. I will i nitiate a little bit of D5 water to prevent him from becoming too terribly hypernatremic over the nex t 24 hours. Magnesium and phosphorus will be checked in the morning. Potassium will be aggressively replaced today. Pulmonary Critical Care will continue to follow. We will watch him through the day . If he meets criteria, we will consider him for transition to the floor.
[2018-03-27] MEDS: Potassium Chloride 20 MEQ TAB PO SCH ×2 (12:19→18:35)
[2018-03-27] MEDS: Furosemide 20 MG/2 ML VIAL SLOW IVP SCH (13:41)
[2018-03-27] MEDS: cefTRIAXone\\ROCEPHIN 2 GM in Sodium Chloride 0.9% 100 ML IVPB SCH (13:41)
--- NOTE | 2018-03-27 13:54 | ADD-PRG ---
DATE OF SERVICE: 03/27/2018 This is an addendum to the note of Dr. Miranda Fournier. Mr. Bush is awake and alert this morning. He is still hypotensive, but has a map of around 65. Hi s urine output has been good. BUN and creatinine are stable. Initially, his hemoglobin this morning was 7.0, but we repeated it at 7.8. He has also developed thrombocytopenia and we are in the midst of investigating this now. Preliminarily his retic count is 2.1. His fibrinogen level is low at 170 , but fibrin and virus split products are still pending. His platelets have dropped to around 34,000 . He is not having any oozing from his IV sites and no evidence of any overt bleeding. Chest x-ray does demonstrate what appears to be mild pulmonary congestion and we are judiciously using Lasix give n the fact that he is likewise hypotensive.
--- NOTE | 2018-03-27 15:15 | PRG ---
DATE OF SERVICE: 03/27/2018 SUBJECTIVE: Mr. Bush has had no bowel movement since endoscopy yesterday. No vomiting. He was mo re alert per the nursing staff; however, he started having more trouble breathing and he was placed o n BiPAP and he is sleepy now. He still wakes up and will tell me his name. OBJECTIVE: VITAL SIGNS: Temperature is 97.6, pulse 89 and blood pressure 111/73. GENERAL: He is in no acute distress. LUNGS: Clear to auscultation bilaterally. HEART: Regular rate and rhythm. ABDOMEN: Soft, nontender and nondistended. Bowel sounds are present. EXTREMITIES: A 1-2+ pitting lower extremity edema. IMPRESSION: 1. Large gastric ulcer in the cardia of the stomach. There is necrotic base with an ischemic appear ance. He does have a history of gastric cancer. Biopsies are pending. He denies recent cocaine or methamphetamine abuse to be a causative factor for ischemic ulcer. We will await biopsies regarding that. 2. Severe protein malnutrition with anasarca. RECOMMENDATIONS: 1. Continue proton pump inhibitor b.i.d. 2. Await histopathology. 3. Continue to follow trend of the liver function test. His bilirubin is noted to be significantly increasing over the last few days. His alkaline phosphatase has actually decreased. This could be c holestasis secondary to the pneumonia of infectious process versus alcoholic hepatitis versus medicat ion drug reaction. He could have underlying cirrhosis and may have had some ischemic event as well. 4. We will continue to follow the trend of LFTs for now.
--- NOTE | 2018-03-27 15:25 | PRG ---
DATE OF SERVICE: 03/27/2018 SUBJECTIVE: This is a 58-year-old gentleman being seen for acute kidney injury. The patient denies any nausea, vomiting or chest pain. OBJECTIVE: GENERAL: Patient is awake, alert. VITAL SIGNS: Afebrile, pulse 87, breathing at 16, blood pressure 111/73. HEENT: Atraumatic, normocephalic. Oral mucosa is moist. NECK: Supple. CARDIOVASCULAR: S1 and S2 heard. Rate and rhythm regular. RESPIRATORY: Clear to auscultation. GASTROINTESTINAL: Abdomen is soft. MUSCULOSKELETAL: No tenderness. No edema. DERMATOLOGIC: No skin rash. NEUROLOGIC: Alert and awake and oriented x3. No focal neurologic deficits. Moving all the extremit ies. PSYCHIATRIC: Mood and affect normal. LABORATORY DATA: Show hemoglobin 7.8, potassium is 2.9, creatinine 1.0. ASSESSMENT AND RECOMMENDATIONS: 1. Acute kidney injury, chronic kidney disease, improved. 2. Hypertension, stable. 3. Anemia, stable. 4. Hypokalemia. Recommend aggressive potassium replacement. We would recommend checking magnesium. I will sign off on this patient. Please reconsult as needed.
[2018-03-27 16:51] LABS: Anion Gap 11 mmol/L (10-20); BUN (Urea Nitrogen) 8 mg/dL (8.4-25.7); Calc. Creatinine Clearance 78 mL/min (70-130); Carbon Dioxide 24 mmol/L (22-29); Chloride 112 mmol/L (98-107); Estimated GFR-MDRD 89; Glucose 84 mg/dL (70-105); Sodium 144 mmol/L (136-145)
[2018-03-27 17:17] LABS: Hemoglobin 7.7 g/dL (14.0-18.0); Mean Corpuscular HGB CONC 32.1 g/dL (32.0-36.0); Mean Corpuscular Hemoglobin 25.3 pg (27.0-31.0); Mean Corpuscular Volume 78.7 fL (78.0-98.0); Mean Platelet Volume 12.8 fL (7.4-10.4); Platelet Count 25 thou/uL (130-400); RBC Distribution Width 21.1 % (11.5-14.5); Red Blood Cell (RBC) Count 3.06 mill/uL (4.70-6.10); White Blood Cell (WBC) Count 11.4 thou/uL (4.8-10.8)
[2018-03-27 17:21] LABS: Anisocytosis SLIGHT = 6-15 cells (100X) (0-5/hpf); Band 33 % (5-11); Hypochromia SLIGHT = 6-15 cells (100X) (0-5/hpf); Lymphocytes 1 % (21-51); MDiff Complete? YES; Monocytes 1 % (0-10); Neutrophil 65 % (42-75); Ovalocytes SLIGHT = 2-5 cells (100X) (0-1/hpf); PLT Morphology Comment Appears Decreased; Polychromasia SLIGHT = 2-3 cells (100X) (0-2/hpf); Target Cells MODERATE= 6-15 cells (100X) (0-1/hpf); Tear Drops SLIGHT = 2-5 cells (100X) (0-1/hpf)
[2018-03-28] MEDS: Furosemide 20 MG/2 ML VIAL SLOW IVP SCH (05:30)
[2018-03-28 06:14] LABS: ALT (SGPT) 24 U/L (8-55); AST (SGOT) 27 U/L (5-34); Albumin 2.4 g/dL (3.5-5.0); Alkaline Phosphatase 232 U/L (40-150); Anion Gap 9 mmol/L (10-20); BUN (Urea Nitrogen) 8 mg/dL (8.4-25.7); Bilirubin, Total 9.7 mg/dL (0.2-1.2); Calc. Creatinine Clearance 80 mL/min (70-130); Carbon Dioxide 23 mmol/L (22-29); Chloride 114 mmol/L (98-107); Estimated GFR-MDRD Greater than 90; Glucose 100 mg/dL (70-105); Magnesium 1.6 mg/dL (1.6-2.6); Phosphorus 2.2 mg/dL (2.3-4.7); Potassium 3.3 mmol/L (3.5-5.1); Protein, Total 4.4 g/dL (6.0-8.3); Sodium 143 mmol/L (136-145)
[2018-03-28 06:24] LABS: Platelet Count 25 thou/uL (130-400)
[2018-03-28] MEDS: Potassium Chloride 20 MEQ TAB PO PRN ×2 (06:37→11:05)
[2018-03-28] MEDS: Magnesium Oxide 400 MG TAB PO PRN (06:38)
[2018-03-28 06:50] LABS: Anisocytosis SLIGHT = 6-15 cells (100X) (0-5/hpf); Hemoglobin 7.7 g/dL (14.0-18.0); Hemoglobin C Crystals SLIGHT (None Seen); MDiff Complete? YES; Mean Corpuscular HGB CONC 31.6 g/dL (32.0-36.0); Mean Corpuscular Hemoglobin 25.4 pg (27.0-31.0); Mean Corpuscular Volume 80.6 fL (78.0-98.0); PLT Morphology Comment Appears Decreased; RBC Distribution Width 21.1 % (11.5-14.5); Red Blood Cell (RBC) Count 3.01 mill/uL (4.70-6.10); Schistocytes SLIGHT = 2-5 cells (100X) (0-1/hpf); Target Cells MODERATE= 6-15 cells (100X) (0-1/hpf); White Blood Cell (WBC) Count 10.9 thou/uL (4.8-10.8)
[2018-03-28 07:01] LABS: Mean Platelet Volume 11.3 fL (7.4-10.4)
--- NOTE | 2018-03-28 08:05 | PRG ---
DATE OF SERVICE: 03/28/2018 SUBJECTIVE: The patient is lying in bed comfortably. He has no acute complaints other than persiste nt hiccups. PHYSICAL EXAMINATION: VITAL SIGNS: His temperature is 98.6, pulse 103, blood pressure 103/70, O2 sat running between 88%-9 7% on 2 liters. Total intake for the last 24 hours is 760, output 3190. HEENT: Pupils react. Sclerae anicteric. Oropharynx clear. NECK: No adenopathy or JVD, no bruits. LUNGS: Clear to auscultation without wheezing or rhonchi. CARDIOVASCULAR: S1, S2 regular, without murmur. ABDOMEN: Distended. Tympanic. EXTREMITIES: No clubbing, cyanosis. Trace edema. LABORATORY DATA: White blood cell count 10.9, hemoglobin 7.7, hematocrit 24.3, platelet count 25. S odium 143, potassium 3.3, chloride 114, CO2 23, BUN 8, creatinine 1.0, glucose 100. Magnesium level 1.6, total bilirubin 9.7, albumin 2.4. ASSESSMENT: 1. Status post acute hypoxic respiratory failure, which required mechanical ventilation. 2. Possible healthcare-associated pneumonia. 3. Anasarca. 4. Thrombocytopenia. 5. Status post biopsy of gastric ulcer. 6. Mild hypokalemia. PLAN: This patient can be transferred out to a monitored unit. He is continuing antibiotics. His v asopressors have been stopped.
[2018-03-28] MEDS: Pantoprazole 40 MG VIAL IVP SCH ×2 (08:37→20:48)
[2018-03-28] MEDS: Potassium Chloride 20 MEQ TAB PO SCH ×2 (08:39→16:16)
--- NOTE | 2018-03-28 08:45 | PDOC.FM ---
- Subjective Subjective: Patient is complaining of hiccups this AM. He reports that his breathing has improved since last night. He is still reporting significant SOB. He had a BM last night and reports that it improved some of his abdominal pain. - Objective MAR Reviewed: Yes Vital Signs & Weight: Vital Signs (12 hours) Temp Pulse Resp Pulse Ox 03/28/18 07:48 90 L 03/28/18 07:47 96 20 03/28/18 07:03 98.6 F 103 H 12 96 03/28/18 07:00 98.6 F 03/28/18 06:00 97.7 F 03/28/18 02:15 102 H 28 H 93 L 03/27/18 22:19 96 24 H 96 Weight Admit Weight 72.2 kg Weight 72.2 kg Most Recent Monitor Data Heart Rate from ECG 99 NIBP 99/64 NIBP BP-Mean 75 Respiration from ECG 3 SpO2 89 I&O: 03/27/18 03/28/18 03/29/18 06:59 06:59 06:59 Intake Total 2229.9 760 Output Total 2930 3190 875 Balance -700.1 -2430 -875 Result Diagrams: 03/28/18 05:30 03/28/18 05:30 Phys Exam - Physical Examination Constitutional: NAD (on NC) HEENT: moist MMs, sclera anicteric Respiratory: no wheezing rales in bilateral lung bases Cardiovascular: RRR, no significant murmur, no rub Gastrointestinal: soft mildly distended, normoactive bowel sounds, non-tender Musculoskeletal: pulses present, edema present (trace pitting edema in bilateral ankles) Neurological: non-focal, moves all 4 limbs Psychiatric: normal affect, A&O x 3 Skin: normal turgor, cap refill <2 seconds Dx/Plan (1) Acute respiratory failure with hypoxia Code(s): J96.01 - ACUTE RESPIRATORY FAILURE WITH HYPOXIA Status: Acute (2) Septic shock Code(s): A41.9 - SEPSIS, UNSPECIFIED ORGANISM; R65.21 - SEVERE SEPSIS WITH SEPTIC SHOCK Status: Acute (3) CAP (community acquired pneumonia) Code(s): J18.9 - PNEUMONIA, UNSPECIFIED ORGANISM Status: Acute Qualifiers: Laterality: left Lung location: lower lobe of lung Qualified Code(s): J18.1 - Lobar pneumonia, unspecified organism (4) Severe anemia Code(s): D64.9 - ANEMIA, UNSPECIFIED Status: Acute (5) Hypoglycemia Code(s): E16.2 - HYPOGLYCEMIA, UNSPECIFIED Status: Acute (6) Lactic acidosis Code(s): E87.2 - ACIDOSIS Status: Acute (7) Hypokalemia Code(s): E87.6 - HYPOKALEMIA Status: Acute (8) Hypocalcemia Code(s): E83.51 - HYPOCALCEMIA Status: Acute (9) Transaminitis Code(s): R74.0 - NONSPEC ELEV OF LEVELS OF TRANSAMNS & LACTIC ACID DEHYDRGNSE Status: Acute (10) Elevated bilirubin Code(s): R17 - UNSPECIFIED JAUNDICE Status: Acute (11) Elevated INR Code(s): R79.1 - ABNORMAL COAGULATION PROFILE Status: Acute (12) Alcohol abuse Code(s): F10.10 - ALCOHOL ABUSE, UNCOMPLICATED Status: Acute (13) Marijuana abuse Code(s): F12.10 - CANNABIS ABUSE, UNCOMPLICATED Status: Acute (14) Tobacco abuse Code(s): Z72.0 - TOBACCO USE Status: Acute (15) Anasarca Code(s): R60.1 - GENERALIZED EDEMA Status: Acute (16) Ascites Code(s): R18.8 - OTHER ASCITES Status: Acute Qualifiers: Ascites type: other type Qualified Code(s): R18.8 - Other ascites (17) History of gastric cancer Code(s): Z85.028 - PERSONAL HISTORY OF OTHER MALIGNANT NEOPLASM OF STOMACH Status: Resolved (18) Thrombocytopenia Code(s): D69.6 - THROMBOCYTOPENIA, UNSPECIFIED Status: Acute - Plan Plan: 58 y/o M presents with weakness and decreased energy is found to be in septic shock and acute hypoxic respiratory failure Septic Shock 2/2 E. coli and Klebsiella bacteremia Pt initially presented in septic shock with low pressures, Tmax 101.7, WBC 12.3 , 42% bands. Only source found has been L perihilar infiltrate and E. coli and Klebsiella bacteremia. Initially required levophed, but that has been titrated off. His MAP's have improved to 70s-80s -Rocephin -Final BCx pending Acute Hypoxic Respiratory Failure Patient required intubation after receiving fluid resuscitation, likely 2/2 volume overload. Was extubated on 7/3. Required BiPAP on 03/27, but is now on NC. -Intermittent lasix prn as the patient tolerates with his BP's Community Acquired Pneumonia CXR showed L perihilar infiltrate -Rocephin -Is more likely atelectasis Severe Anemia Hb 5.5 initially, no signs of bleeding s/p 2 U PRBC's, the Hb improved to 11 and is now 7.7 - around the pt's baseline. FOBT positive. EGD showed ulcer with necrotic base that was not actively bleeding. This was biopsied. Retic Index 0.61, hypoproliferative -GI has been consulted, appreciate recs -Peripheral smear Thrombocytopenia Platelets have been slowly downtrending, now 25. No signs of active bleeding Could be 2/2 sepsis vs DIC. -Will continue to monitor -Peripheral smear Hypoglycemia Glucose low initially, has been in the low 100's while on D5 09/25 NS -AM cortisol was 8.7 Hypokalemia -Electrolyte replacement protocol Lactic Acidosis, resolved Lactic acid 2.3->6.2->4.9->2.2, s/p fluids Transaminitis Pt has h/o EtOH abuse and ascites, no known liver disease, but has had a paracentesis before -Trend -GI on board, appreciate recs Polysustance abuse -ASE protocol -monitor h/o Gastric Cancer s/p resection with Whipple Ascites Unknown cause -Monitor
[2018-03-28] MEDS ORDERED: Furosemide 40 MG TAB PO SCH (11:00)
[2018-03-28] MEDS: cefTRIAXone\\ROCEPHIN 2 GM in Sodium Chloride 0.9% 100 ML IVPB SCH (11:06)
--- NOTE | 2018-03-28 12:48 | ADD-PRG ---
DATE OF SERVICE: 03/28/2018 This is an addendum to the note of Dr. Miranda Fournier. Mr. Bush is off BiPAP, but again appears somewhat short of breath this morning. His potassium leve l is now 3.3. Hemoglobin is stable at 7.7, platelets have dropped to 25,000. He is not demonstratin g any evidence of bleeding and this will of course continue to be monitored closely. His hematology studies seem consistent with DIC likely secondary to sepsis. He is also growing Klebsiella out of hi s blood cultures in addition to the Escherichia coli. We will review our antibiotic coverage to make sure that it is sufficient. We will transfer him to the [facility] and continue current therapy.
[2018-03-28] MEDS: Acetaminophen 325 MG TAB PO PRN (22:31)
--- NOTE | 2018-03-29 02:24 | PRG ---
DATE OF SERVICE: 03/28/2018 SUBJECTIVE: Mr. Bush denies any complaints. He states he has no stomach pain. He states he is ea ting some. Nurse reports he had some stool today, but maybe it had some old blood in it. OBJECTIVE: VITAL SIGNS: Temperature is 99, pulse 97, blood pressure 111/70. ABDOMEN: Soft, nontender. LUNGS: Clear. HEART: Regular rate and rhythm without clicks or murmurs. ABDOMEN: Slightly protuberant with some fluid wave. EXTREMITIES: No edema. LABORATORY DATA: Hemoglobin is 7.7, it was 7.4 yesterday. INR is 1.4 yesterday. Sodium 143, potass ium 3.3, BUN and creatinine are 8 and 1.0 today. ASSESSMENT: 1. Gastrointestinal bleed. When he came in, he had a large ulcer in the body of the stomach above t he surgical anastomosis that was biopsied on 03/26/2018. Pathology is still pending. 2. Gastrointestinal bleed with stable hemoglobin and stable vital signs. No signs of active bleedin g. We will recommend continue IV PPI and checking H&H daily.
[2018-03-29 02:39] LABS: CO2 Tension 35.8 mmHg (35.0-45.0); pH, Arterial 7.41 (7.35-7.45)
[2018-03-29 02:40] LABS: Actual Bicarbonate (HCO3a) 22.3 mEq/L (22-28); O2 Tension (PaO2) 57.4 mmHg (> 80.0)
[2018-03-29 02:41] LABS: Calcium, Ionized 1.1 mmol/L (1.12-1.30); Puncture Site RRA
[2018-03-29] MEDS ORDERED: Furosemide 20 MG/2 ML VIAL SLOW IVP SCH (03:00)
[2018-03-29] MEDS: Acetaminophen 325 MG TAB PO PRN (04:31)
[2018-03-29 04:40] LABS: Hemoglobin 7.2 g/dL (14.0-18.0)
--- NOTE | 2018-03-29 04:43 | PDOC.EVN ---
Event Note - Event Note Event Note: Called by nurse to evaluate patient @2:15 due to SOB. Nurse reports that patient had been helped to the bathroom and upon returning to the bed was noted to be more SOB and tachycardic. O2 saturation was 78% on the 3L NC patient had been on. Nurse initiated Bipap and contacted physicians. Upon arrival, patient laying in bed with increased respiratory rate. Able to answer questions appropriately. P115 RR 30 T101.7 Lungs-coarse rhonchi and crackles in bases. CV - tachycardic, no murmur STAT ABG, CXR, and EKG ordered. ABG was 7.41/36/57/22 87% on Bipap@ 50% FiO2. H/H from ABG =05/17. Patient refused EKG. CXR- increased pulmonary vasculature/congestion. A/P: acute onset SOB with hypoxia- continue bipap; will give additional dose of lasix and closely monitor respiratory status. 2) Fever- will obtain blood cultures and restart Vancomycin.
[2018-03-29] MEDS ORDERED: Furosemide 40 MG TAB PO SCH (07:30)
--- NOTE | 2018-03-29 08:25 | PDOC.FM ---
- Subjective Subjective: Patient is currently on BiPAP. Denies any complaints except SOB. He denies abdominal pain, chest pain. He reports the difficulty breathing is worse when he is moving around. - Objective MAR Reviewed: Yes Vital Signs & Weight: Vital Signs (12 hours) Temp Pulse Resp BP Pulse Ox 03/29/18 07:27 98.7 F 123 H 40 H 104/71 100 03/29/18 04:00 97.1 F L 112 H 34 H 90/63 96 03/29/18 03:39 106 H 03/28/18 23:00 99.6 F 108 H 18 100/71 93 L 03/28/18 22:04 102 H 20 98 Weight Admit Weight 72.2 kg Weight 72.2 kg Most Recent Monitor Data Heart Rate from ECG 105 NIBP 115/75 NIBP BP-Mean 100 Respiration from ECG 35 SpO2 87 I&O: 03/28/18 03/29/18 03/30/18 06:59 06:59 06:59 Intake Total 760 525 Output Total 7910 2405 Balance -2430 -1880 Result Diagrams: 03/29/18 04:08 03/28/18 05:30 Phys Exam - Physical Examination Breathing rapidly on BiPAP HEENT: moist MMs icteric sclera Respiratory: no wheezing decreased lung sounds at bilateral bases with some rales, tachypneic tachycardic, regular rhythm, no murmurs or rubs Gastrointestinal: soft, positive bowel sounds mildly distended, mildly tender over prior surgical scar 1+ pitting edema in BLE Neurological: non-focal, moves all 4 limbs Psychiatric: normal affect, A&O x 3 Skin: normal turgor, cap refill <2 seconds Dx/Plan (1) Acute respiratory failure with hypoxia Code(s): J96.01 - ACUTE RESPIRATORY FAILURE WITH HYPOXIA Status: Acute (2) Septic shock Code(s): A41.9 - SEPSIS, UNSPECIFIED ORGANISM; R65.21 - SEVERE SEPSIS WITH SEPTIC SHOCK Status: Acute (3) CAP (community acquired pneumonia) Code(s): J18.9 - PNEUMONIA, UNSPECIFIED ORGANISM Status: Acute Qualifiers: Laterality: left Lung location: lower lobe of lung Qualified Code(s): J18.1 - Lobar pneumonia, unspecified organism (4) Severe anemia Code(s): D64.9 - ANEMIA, UNSPECIFIED Status: Acute (5) Hypoglycemia Code(s): E16.2 - HYPOGLYCEMIA, UNSPECIFIED Status: Acute (6) Lactic acidosis Code(s): E87.2 - ACIDOSIS Status: Acute (7) Hypokalemia Code(s): E87.6 - HYPOKALEMIA Status: Acute (8) Hypocalcemia Code(s): E83.51 - HYPOCALCEMIA Status: Acute (9) Transaminitis Code(s): R74.0 - NONSPEC ELEV OF LEVELS OF TRANSAMNS & LACTIC ACID DEHYDRGNSE Status: Acute (10) Elevated bilirubin Code(s): R17 - UNSPECIFIED JAUNDICE Status: Acute (11) Elevated INR Code(s): R79.1 - ABNORMAL COAGULATION PROFILE Status: Acute (12) Alcohol abuse Code(s): F10.10 - ALCOHOL ABUSE, UNCOMPLICATED Status: Acute (13) Marijuana abuse Code(s): F12.10 - CANNABIS ABUSE, UNCOMPLICATED Status: Acute (14) Tobacco abuse Code(s): Z72.0 - TOBACCO USE Status: Acute (15) Anasarca Code(s): R60.1 - GENERALIZED EDEMA Status: Acute (16) Ascites Code(s): R18.8 - OTHER ASCITES Status: Acute Qualifiers: Ascites type: other type Qualified Code(s): R18.8 - Other ascites (17) History of gastric cancer Code(s): Z85.028 - PERSONAL HISTORY OF OTHER MALIGNANT NEOPLASM OF STOMACH Status: Resolved (18) Thrombocytopenia Code(s): D69.6 - THROMBOCYTOPENIA, UNSPECIFIED Status: Acute - Plan Plan: 58 y/o M presents with weakness and decreased energy is found to be in septic shock and acute hypoxic respiratory failure Septic Shock 2/2 E. coli and Klebsiella bacteremia Pt initially presented in septic shock with low pressures, Tmax 101.7, WBC 12.3 , 42% bands. Only source found has been L perihilar infiltrate and E. coli and Klebsiella bacteremia. Initially required levophed, but that has been titrated off. His MAP's have improved to 70s-80s -Pt fevered overnight, so was recultured, BCx pending -Cont Rocephin, will add vanc again to re-broaded abx Acute Hypoxic Respiratory Failure Patient required intubation after receiving fluid resuscitation, likely 2/2 volume overload. Was extubated on 03/26. Required BiPAP on 03/27, was on NC on 03/28, but is back on BiPAP since about 0200 this AM -Continue daily lasix -BiPAP prn -Consider CTA due to worsened tachycardia, tachypnea and pt having multiple risk factors for PE. Community Acquired Pneumonia CXR showed L perihilar infiltrate -Rocephin and Vanc -Is more likely atelectasis -Repeat BCx pending Severe Anemia Hb 5.5 initially, no signs of bleeding s/p 2 U PRBC's, the Hb improved to 11 and is now 7.2 - around the pt's baseline. FOBT positive. EGD showed ulcer with necrotic base that was not actively bleeding. This was biopsied. Retic Index 0.61, hypoproliferative -GI has been consulted, appreciate recs -Pt refusing daily blood draws, so they are currently q2days Thrombocytopenia Platelets have been slowly downtrending, now 25. No signs of active bleeding Could be 2/2 sepsis vs DIC. -Will continue to monitor Hypoglycemia, resolved Glucose low initially, has been in the low 100's while on D5 1/ NS -AM cortisol was 8.7 Hypokalemia -Electrolyte replacement protocol Lactic Acidosis, resolved Lactic acid 2.3->6.2->4.9->2.2, s/p fluids Transaminitis Pt has h/o EtOH abuse and ascites, no known liver disease, but has had a paracentesis before -Trend -GI on board, appreciate recs Polysustance abuse -ASE protocol -monitor h/o Gastric Cancer s/p resection with Whipple Ascites Unknown cause -Monitor
[2018-03-29] MEDS ORDERED: Vancomycin HCl 1 GM in Premix Bag 1 BAG IVPB SCH (09:00)
[2018-03-29] MEDS ORDERED: Vancomycin HCl 1 GM in Sodium Chloride 0.9% 250 ML 300 ML IVPB SCH (09:00)
--- NOTE | 2018-03-29 09:08 | RAD ---
CHEST 1 VIEW: HISTORY: Shortness of breath. COMPARISON: Chest radiograph prior day. FINDINGS: There are overlying bilateral pleural effusions, large on the left and small on the right, similar. Extensive interstitial alveolar opacities are similar to slightly worsened. Port catheter tip is in good position. Cardiac silhouette and mediastinal contours are similar. IMPRESSION: Mildly increased interstitial and alveolar opacities concerning for edema. Adult respiratory distres s syndrome is a possibility. POS: [facility]
[2018-03-29] MEDS: Pantoprazole 40 MG VIAL IVP SCH ×2 (09:20→20:56)
[2018-03-29] MEDS: Furosemide 40 MG/4 ML VIAL SLOW IVP SCH (09:20)
--- NOTE | 2018-03-29 11:28 | ADD-PRG ---
DATE OF SERVICE: 03/29/2018 This is an addendum to the note of Dr. Miranda Fournier. During the night and early this morning, Mr. Bush developed respiratory distress. The team saw him and evaluated him with possible worsening of his pneumonia. The chest x-ray is read as increased in terstitial and alveolar opacities concerning for edema and raising the possibility of adult respirato ry distress syndrome. In any event, he was placed on BiPAP and though improved, he is still complain ing of shortness of breath and tachypnea. Given that he is also profoundly anemic, albeit above 7, w e will go ahead and give him a unit of packed cells as well as a six pack of platelets as his platele t count had dropped to 25,000 over the last 2 days. There is a possibility he could have some GI "oo zing" and his urine is a dark color, which we will check for microhematuria. His lungs sound slightl y congested with some coarse rales and expiratory wheezes. He is on q.4 hour DuoNebs. His antibioti c coverage has been increased. We will also investigate the possibility of pulmonary embolus with a CTA of the chest. We also will await the input of the property insurance agent.
--- NOTE | 2018-03-29 11:45 | CT ---
CT ANGIO CHEST WITH CONTRAST: Date: 03/29/18 Multiple axial tomograms obtained through chest following pulmonary angio protocol with multiplanar r econstruction and 3D postprocessing. INDICATION: Shortness of breath. History of neoplasm. Assess for pulmonary embolus. FINDINGS: Pulmonary arteries show adequate enhancement. No evidence of pulmonary embolus. Thoracic aorta is unr emarkable with no evidence of dissection. Review of the lung coy show diffuse ground-glass opacity throughout both lungs. There is no conflu ent atelectasis/consolidation in the lung bases, probably representing compressive atelectasis due to moderate size bilateral pleural effusions. The esophagus is fluid-filled and dilated in the mid chest region. Images through upper abdomen show heterogeneous attenuation of the liver. This corresponds to recent CT of 02/10/18. IMPRESSION: 1. No evidence of pulmonary embolus. 2. Diffuse hazy ground-glass opacity throughout both lungs consistent with either edema or inflammat ory process. 3. Moderate bilateral pleural effusions with bibasilar atelectasis and/or confluent infiltrates. 4. Dilated fluid-filled esophagus in the mid chest. POS: [facility]
[2018-03-29] MEDS ORDERED: ISOVUE-370 76%-LOCM 1 ML ONE (12:11)
[2018-03-29] MEDS: cefTRIAXone\\ROCEPHIN 2 GM in Sodium Chloride 0.9% 100 ML IVPB SCH (12:50)
[2018-03-29 13:10] LABS: Platelet Count 35 thou/uL (130-400)
[2018-03-29 16:59] LABS: Bilirubin Moderate (Negative); Blood, Urine Moderate (Negative); Clarity CLEAR (Clear); Glucose, Urine (Dipstick) Negative (Negative); Leukocyte Negative (Negative); Nitrite Negative (Negative); Protein, Urine (Dipstick) Negative (Neg-Trace); Specific Gravity, Urine 1.007 (1.002-1.036); Urobilinogen 0.2 mg/dL (0.2-1.0)
--- NOTE | 2018-03-29 16:59 | PRG ---
DATE OF SERVICE: 03/29/2018 SUBJECTIVE: Shadi Bush events have been reviewed. His images have been reviewed as well. PHYSICAL EXAMINATION: VITAL SIGNS: He is afebrile now, heart rate is 91, respiratory rate 28, he is on 50% mask, blood pre ssure 98/72. Intake and output over the weekend remarkable for being negative 3100 mL for the fourth and the fifth mornings and then negative 1800 mL. In spite of negative fluid balance, CT scanning of his chest still shows diffuse infiltrates consiste nt with ARDS. He is in no distress surprisingly at this time, although he has been on and off BiPAP. His lungs are remarkable for fine crackles at both lung bases. Heart, regular rhythm. Abdomen is soft. He is not using any accessory muscles. LABORATORY DATA: Hemoglobin 7.2 this morning and he would not let the nurses draw blood for a transf usion that was ordered earlier. IMPRESSION: His microbiology is again reviewed and he actually have 2 pathogens growing out of his b lood now, E. coli and Klebsiella oxytoca. It is unclear whether the source is urine or blood. The u rine culture was negative, but it looks like he was collected 4 hours after the blood cultures, so an tibiotics may have already been infused at that point. It is unusual to have 2 organisms isolated from the blood with pneumonia although an aspiration pneum onia could certainly in theory lead polymicrobial infection. In any event, he remains quite ill, but at least at this point in time stable. He is certainly at risk for decompensating if he has an exce ssively positive fluid balance as he will still have the vascular permeability changes in his lungs. I will continue to follow with the other physicians caring for him.
[2018-03-29 17:01] LABS: Bacteria/HPF None Seen HPF (None Seen); Hyaline Casts/LPF 7-10 HYALINE CAST LPF (0-3 Hyaline); Pathc Cast-AUWi Flag 1.88 (0-2.49); Squamous Epithelial None Seen HPF (0-3); WBC/HPF 0-3 HPF (0-3)
--- NOTE | 2018-03-29 21:57 | PRG ---
DATE OF SERVICE: 03/29/2018 SUBJECTIVE: Mr. Bush is eating very little. His bowel movements are acholic. Urine is dark. He denies any pain. MEDICATIONS: Mag ox p.r.n., potassium chloride 40 mEq p.r.n., Protonix 40 IV q.12 hours, Tylenol 650 p.o. q.6 hours p.r.n., albuterol p.r.n., Rocephin 2 grams daily, Lasix 40 mg daily, vancomycin. PHYSICAL EXAMINATION: VITAL SIGNS: Pulse 91, down from 100 to 120 earlier today; respirations 28-22; temperature 98; blood pressure 101/69. GENERAL: The patient is icteric. LUNGS: Rhonchi in the bases anteriorly. HEART: Has regular rate and rhythm. ABDOMEN: Soft, slightly protuberant with shifting dullness. EXTREMITIES: No edema. NEUROLOGIC: Alert and oriented to person, place, and time. LABORATORY DATA: White count 10.9 yesterday; hemoglobin 7.7 yesterday, 7.2 today; platelet count 35, 000, it was 25,000 yesterday, platelet count is 151 on 03/25/2018 when he came in. INR not checked s juan ramon 03/27/2018. He did have low fibrinogens from FFPs today . No electrolytes today. Bilirubin ye sterday was 9.7 with alkaline phosphatase of 232. Biopsy came back as gastric ulcer and showed necrosis, inflammation, no overt malignancy. ASSESSMENT: 1. Gastrointestinal bleed from large gastric ulcer seemingly necrotic, likely ischemic. No active b leeding presently. 2. Thrombocytopenia. This is new since admission that was on the low side. He may have had a compo nent of portal hypertension, but levels now in range of 20-30, that were not present when he was admi tted. This is likely a drug reaction or possibly due to acute decompensation of his liver and increa se in portal hypertension with some portal vein thrombosis, this seems a lot less likely 3. History of gastric cancer with positive lymph nodes and previous modified Whipple. He had T4N2 d isease diagnosed and status post resection and adjuvant chemotherapy. 4. Worsening liver test. This may be related to metastatic disease and vascular compromise with por bety vein or hepatic vein thrombosis or even a drug reaction, Rocephin can cause cholestatic hepatitis . 5. Respiratory distress on admission with pneumonitis, bronchitis versus fluid overload. 6. History of alcohol abuse in the past. 7. History of tobacco abuse in the past. He states he stopped drinking about a month ago. 8. History of substance abuse in the past which is what we talk about. RECOMMENDATIONS: 1. We will CAT scan of his abdomen and pelvis. 2. We will go ahead and check hepatitis B, DNA as he had a hepatitis B core antibody positive. 3. We will check CEA and alphafetoprotein. 4. It may be reasonable to stop the Rocephin if feasible. 5. If thrombocytopenia persists, we would consider Hematology consult. 6. We will check an INR tomorrow and make sure his hepatic function is not worsening. 7. With his long history of significant substance abuse and alcohol abuse in the past, we would give him multivitamin, thiamine, and folate. Dr. Gee will cover over the weekend.
--- NOTE | 2018-03-29 22:32 | CON ---
DATE OF CONSULTATION: 03/29/2018 REASON FOR CONSULTATION: Bacteremia. HISTORY OF PRESENT ILLNESS: This is a 58-year-old gentleman who has a history of smoking and was diagnosed with distal gastric cancer in early 2016. The patient underwent attempted resection. During the operative procedure, there was evidence of penetration of the pancreas by the tumor. Therefore, the distal stomach and a portion of the pancreas had to be removed with the duodenum en-bloc. Marguerite-en-Y reconstruction was established with a choledochojejunostomy established. Following that, it looks like the patient had radiation therapy and chemotherapy through a port in the right IJ location. The chemotherapy was revised by Dr. Armendariz according to the patient's recollection. Since the surgical procedure, the patient started developing anasarca and eventually was admitted in 01/2018 to [facility]. The evaluation established that the edema was secondary to malnutrition and hypoalbuminemia associated with the aftermath of the surgical procedure. Repeat CT of the abdomen and pelvis did not demonstrate any evidence of abdominal mass or metastases and there was no evidence of nephrotic syndrome either, the heart function appears to be within normal limits. The ascitic fluid did not show any evidence of malignancy or infection. The patient was discharged on vitamin D, Lasix, Ensure, gabapentin, Protonix, and Wellbutrin. Of note, during the surgical procedure, the pancreas was felt to be abnormal indicative of likely chronic pancreatitis. At this time, the patient was admitted because of new onset of dizziness, general malaise, anorexia and low blood pressure. No headaches, no visual symptoms, sore throat, odynophagia, or dysphagia, no vomiting, no diarrhea, no genitourinary symptoms. No abdominal pain. He denied any chills or documented fever. He was brought to the emergency room and given IV fluids. PAST MEDICAL HISTORY: Includes chronic low back pain, chronic smoking, gastric cancer with the procedure noted above including the Whipple's procedure with a choledochojejunostomy and Marguerite-en-Y anastomosis, he also had a ventral incisional hernia treated in 06/2017, chronic pancreatitis. PAST SURGICAL HISTORY: Includes a colonoscopy in 2013, cubital tunnel release. FAMILY HISTORY: Includes some form of cancer. SOCIAL HISTORY: Current smoker, former history of alcoholism until recently. ALLERGIES: No known drug allergies. PHYSICAL EXAMINATION: VITAL SIGNS: T-max 98.6-99, blood pressure 101/69, pulse 81, respirations 22- 28 with O2 sat 100. SKIN: Shows the port in the right subclavian location, this port is not accessed at this time. The patient has a Xiao catheter in place. His I's and O's are negative for the past 24 hours. No lymphadenopathy. The patient has evidence of temporal wasting. HEENT: Sclerae are white. Pupils are equal and reactive, somewhat pale conjunctivae. Oral cavity moist, numerous missing teeth. NECK: Supple. No jugular venous distention. LUNGS: Symmetric air entry without crackles or wheezing. HEART: S1, S2, regular rate. ABDOMEN: Slightly distended, but not tender. Question of ascites. No bladder distention. EXTREMITIES: No joint inflammatory activity. Pulses 1+ in dorsalis pedis. Plantar responses are flexure. NEUROLOGIC: Cognitive function appears to be intact. LABORATORY DATA: White cell count 12.3 and then went up to 29.1, now is 9.9. Initial hemoglobin 5.5, MCV 79 and now hemoglobin 7.8, platelet count was 140 on arrival and now is down to 73. The differential showed 57% neutrophils, 42% bands on arrival and now we have 72% neutrophils, 24% bands. Initial chemistry with a sodium 137, creatinine 0.64, AST 45, bilirubin 2.8, alkaline phosphatase 258, albumin 1.2. Lactic acid 2.3 and 6.2. The latest findings included a sodium 143, creatinine 1.0, bilirubin 9.7, transaminases normal, alkaline phosphatase 232, albumin is up to 2.4. Urinalysis with 0-3 wbc's. Vancomycin trough 19.6. Microbiology with 2/2 sets of blood cultures with E. coli and Klebsiella oxytoca with a fairly broad susceptibility profile. IMAGING STUDIES: Include a chest CT angio with no evidence of pulmonary embolism, diffuse hazy, ground-glass opacity throughout both lungs, consistent with edema or inflammatory process, bilateral pleural effusions which are moderate and a dilated fluid filled esophagus in the mid chest. There is an abdomen and pelvis CT from January of this year with evidence of fatty infiltration of the right lobe of liver. Here they described his gallbladder and bile ducts were unremarkable, but patient had a cholecystectomy in the past. Pancreas is described as unremarkable. Spleen unremarkable. There was evidence of subcutaneous tissue edema and large amount of ascites. ASSESSMENT: 1. History of distal gastric cancer with pancreatic involvement, status post distal gastrectomy, pancreatectomy, en bloc resection of the duodenum with then choledochojejunostomy and Marguerite-en-Y reconstruction in 2017. 2. Malnutrition with severe hypoalbuminemia and anasarca. 3. New onset of hypotension, leukocytosis with bandemia and gram-negative zeferino bacteremia with E. coli and Klebsiella. 4. Abnormal liver function test with hyperbilirubinemia and elevated alkaline phosphatase. DISCUSSION: The differential diagnosis includes a complication of the procedure with possible stenosis of the anastomosis between the biliary duct and the jejunum and the afferent loop of the Marguerite-en-Y reconstruction versus colonization of the port. The patient may have developed a liver abscess with cholangitis associated with abnormality of the new bile duct - enteric anastomosis. Recrudescence of malignancy is another possibility. Primary lung infection is less likely and alternate intraabdominal inflammatory process not ruled out such as including the possibility of anastomotic leak, but that appears to be less likely. At this point, we would recommend repeating the abdomen and pelvis CT with IV and oral contrast and repeat blood cultures with preferably samples obtained from the port to see if it is colonized or not with the same bacteria. A HIDA scan or other biliary imaging study for example a MRCP would be another consideration to see if there is evidence of stenosis. Probably, he would need a more direct imaging of the biliary tract to define if there is stenosis or not and I would ask Gastroenterology regarding that. In terms of antimicrobial therapy, Rocephin appears adequate. I would, at this time, discontinue vancomycin. Duration of therapy and further interventions will depend on the results of the above workup. MISTYD
[2018-03-30 04:55] LABS: INR-International Normal Ratio 1.3; Prothrombin Time 16.1 SEC (12.0-14.7)
[2018-03-30 05:33] LABS: ALT (SGPT) 20 U/L (8-55); AST (SGOT) 25 U/L (5-34); Albumin 2.3 g/dL (3.5-5.0); Alkaline Phosphatase 265 U/L (40-150); Anion Gap 10 mmol/L (10-20); BUN (Urea Nitrogen) 11 mg/dL (8.4-25.7); Calc. Creatinine Clearance 98 mL/min (70-130); Calcium 8.1 mg/dL (7.8-10.44); Carbon Dioxide 27 mmol/L (22-29); Chloride 109 mmol/L (98-107); Estimated GFR-MDRD Greater than 90; Globulin 2.2 g/dL (2.4-3.5); Glucose 95 mg/dL (70-105); Magnesium 1.6 mg/dL (1.6-2.6); Phosphorus 2.7 mg/dL (2.3-4.7); Potassium 2.8 mmol/L (3.5-5.1); Protein, Total 4.5 g/dL (6.0-8.3); Sodium 143 mmol/L (136-145)
[2018-03-30] MEDS: Potassium Chloride 20 MEQ TAB PO PRN ×2 (05:53→11:28)
[2018-03-30] MEDS: Magnesium Oxide 400 MG TAB PO PRN ×2 (05:53→22:25)
[2018-03-30 06:32] LABS: Anisocytosis SLIGHT = 6-15 cells (100X) (0-5/hpf); Band 21 % (5-11); Eosinophils 2 % (0-10); Hemoglobin 7.9 g/dL (14.0-18.0); Hemoglobin C Crystals SLIGHT (None Seen); Hypochromia SLIGHT = 6-15 cells (100X) (0-5/hpf); Lymphocytes 8 % (21-51); MDiff Complete? YES; Mean Corpuscular HGB CONC 33.3 g/dL (32.0-36.0); Mean Corpuscular Hemoglobin 27.1 pg (27.0-31.0); Mean Corpuscular Volume 81.5 fL (78.0-98.0); Mean Platelet Volume 11.2 fL (7.4-10.4); Monocytes 3 % (0-10); Neutrophil 66 % (42-75); PLT Morphology Comment Appears Decreased; Platelet Count 56 thou/uL (130-400); RBC Distribution Width 21.1 % (11.5-14.5); Target Cells MODERATE= 6-15 cells (100X) (0-1/hpf); White Blood Cell (WBC) Count 12.1 thou/uL (4.8-10.8)
--- NOTE | 2018-03-30 07:00 | PDOC.FM ---
- Subjective Subjective: Patient reports that his breathing is a little improved from yesterday. He finds it a little easier to breathe. He says he had a BM yesterday, but didn't look at the color, per the nurse report it was a large, blood-streaked, white/ brownish stool. He denies any abdominal pain or chest pain. He denies fevers. - Objective MAR Reviewed: Yes Vital Signs & Weight: Vital Signs (12 hours) Temp Pulse Pulse Resp BP BP Pulse Ox 03/30/18 06:28 92 L 03/30/18 06:22 85 20 92 L 03/30/18 04:05 98.9 F 92 34 H 94/64 91 L 03/30/18 02:47 95 03/30/18 02:45 95 03/30/18 02:17 87 30 H 92/63 94 L 03/30/18 00:28 99.6 F 89 30 H 95/66 95 03/30/18 00:03 99.2 F 86 29 H 95/66 93 L 03/29/18 23:09 98 03/29/18 22:21 87 30 H 98/72 95 03/29/18 21:40 98.6 F 89 30 H 97/69 94 L 03/29/18 21:05 98.2 F 93 28 H 99/66 98 03/29/18 20:50 98.6 F 100 29 H 100 03/29/18 19:45 98.2 F 89 25 H 107/76 98 03/29/18 19:19 98.6 F 100 29 H 95/72 95 Weight Admit Weight 72.2 kg Weight 72.2 kg Most Recent Monitor Data Heart Rate from ECG 105 NIBP 115/75 NIBP BP-Mean 100 Respiration from ECG 35 SpO2 87 I&O: 03/28/18 03/29/18 03/30/18 06:59 06:59 06:59 Intake Total 700 343 6952 Output Total 9393 8778 1550 Balance -2304 -1227 -394 Result Diagrams: 03/30/18 04:25 03/30/18 04:25 Radiology: CTA chest: No evidence of PE. Diffuse ground glass opacities bilaterally. Moderate pleural effusions bilaterally. Bibasilar atelectasis vs infiltrates. Dilated, fluid-filled esophagus in the mid-chest. <Miranda Fournier - Last Filed: 03/30/18 06:58> - Objective Vital Signs & Weight: Vital Signs (12 hours) Temp Pulse Resp BP Pulse Ox 03/30/18 07:10 98.9 F 85 26 H 100 03/30/18 07:00 98.5 F 88 24 H 107/69 91 L 03/30/18 06:28 92 L 03/30/18 06:22 85 20 92 L 03/30/18 04:05 98.9 F 92 34 H 94/64 91 L 03/30/18 02:47 95 03/30/18 02:45 95 03/30/18 02:17 87 30 H 92/63 94 L 03/30/18 00:28 99.6 F 89 30 H 95/66 95 03/30/18 00:03 99.2 F 86 29 H 95/66 93 L 03/29/18 23:09 98 Weight Admit Weight 72.2 kg Weight 72.2 kg Most Recent Monitor Data Heart Rate from ECG 105 NIBP 115/75 NIBP BP-Mean 100 Respiration from ECG 35 SpO2 87 I&O: 03/29/18 03/30/18 03/31/18 06:59 06:59 06:59 Intake Total 525 1250 Output Total 2405 1550 Balance -1880 -300 Result Diagrams: 03/30/18 04:25 03/30/18 04:25 <Rosetta Card - Last Filed: 03/30/18 10:42> Phys Exam - Physical Examination Breathing rapidly, but resting comfortably on 15L by Venturi mask HEENT: moist MMs icteric sclera Respiratory: no wheezing rhonchi at bilateral lung bases, tachypnea Cardiovascular: RRR, no significant murmur, no rub Gastrointestinal: soft, positive bowel sounds distended, + fluid wave, mildly tender to palpation diffusely Musculoskeletal: pulses present 1+ pitting edema in BLE Neurological: non-focal, moves all 4 limbs Psychiatric: normal affect, A&O x 3 Skin: normal turgor, cap refill <2 seconds Deviation from normal: port in place on R chest <Miranda Fournier - Last Filed: 03/30/18 06:58> Dx/Plan (1) Acute respiratory failure with hypoxia Code(s): J96.01 - ACUTE RESPIRATORY FAILURE WITH HYPOXIA Status: Acute (2) Septic shock Code(s): A41.9 - SEPSIS, UNSPECIFIED ORGANISM; R65.21 - SEVERE SEPSIS WITH SEPTIC SHOCK Status: Acute (3) CAP (community acquired pneumonia) Code(s): J18.9 - PNEUMONIA, UNSPECIFIED ORGANISM Status: Acute QualifierTitle: Laterality: left Lung location: lower lobe of lung Qualified Code(s): J18.1 - Lobar pneumonia, unspecified organism (4) Severe anemia Code(s): D64.9 - ANEMIA, UNSPECIFIED Status: Acute (5) Hypoglycemia Code(s): E16.2 - HYPOGLYCEMIA, UNSPECIFIED Status: Acute (6) Lactic acidosis Code(s): E87.2 - ACIDOSIS Status: Acute (7) Hypokalemia Code(s): E87.6 - HYPOKALEMIA Status: Acute (8) Hypocalcemia Code(s): E83.51 - HYPOCALCEMIA Status: Acute (9) Transaminitis Code(s): R74.0 - NONSPEC ELEV OF LEVELS OF TRANSAMNS & LACTIC ACID DEHYDRGNSE Status: Acute (10) Elevated bilirubin Code(s): R17 - UNSPECIFIED JAUNDICE Status: Acute (11) Elevated INR Code(s): R79.1 - ABNORMAL COAGULATION PROFILE Status: Acute (12) Alcohol abuse Code(s): F10.10 - ALCOHOL ABUSE, UNCOMPLICATED Status: Acute (13) Marijuana abuse Code(s): F12.10 - CANNABIS ABUSE, UNCOMPLICATED Status: Acute (14) Tobacco abuse Code(s): Z72.0 - TOBACCO USE Status: Acute (15) Anasarca Code(s): R60.1 - GENERALIZED EDEMA Status: Acute (16) Ascites Code(s): R18.8 - OTHER ASCITES Status: Acute QualifierTitle: Ascites type: other type Qualified Code(s): R18.8 - Other ascites (17) History of gastric cancer Code(s): Z85.028 - PERSONAL HISTORY OF OTHER MALIGNANT NEOPLASM OF STOMACH Status: Resolved (18) Thrombocytopenia Code(s): D69.6 - THROMBOCYTOPENIA, UNSPECIFIED Status: Acute (19) Elevated alkaline phosphatase level Status: Acute (20) Hypoalbuminemia Code(s): E88.09 - OTH DISORDERS OF PLASMA-PROTEIN METABOLISM, NEC Status: Acute (21) Malnutrition related to chronic disease Code(s): E46 - UNSPECIFIED PROTEIN-CALORIE MALNUTRITION Status: Acute (22) Microcytic anemia Code(s): D50.9 - IRON DEFICIENCY ANEMIA, UNSPECIFIED Status: Acute - Plan Plan: 58 y/o M presents with weakness and decreased energy is found to be in septic shock and acute hypoxic respiratory failure Septic Shock 2/2 E. coli and Klebsiella bacteremia Pt initially presented in septic shock with low pressures, Tmax 101.7, WBC 12.3 , 42% bands. Only source found has been L perihilar infiltrate and E. coli and Klebsiella bacteremia. Initially required levophed, but that has been titrated off. His MAP's have improved to 70s-80s -Pt re-fevered on 03/29, so was recultured, BCx pending -Cont Rocephin -Port cultures -CT abdomen/pelvis with contrast -ID on board, appreciate recs Acute Hypoxic Respiratory Failure Patient required intubation after receiving fluid resuscitation, likely 2/2 volume overload. Was extubated on 03/26. Required BiPAP on 03/27 and 03/29. Has been on Venturi mask since this, but has remained tachypneic. CTA showed no evidence of PE, but revealed diffuse ground glass opacities, moderate BL pleural effusions and atelectasis vs infiltrate. -Continue daily lasix -BiPAP prn -Pulm on board, appreciate recs Community Acquired Pneumonia CXR initially showed L perihilar infiltrate -Rocephin -Is more likely atelectasis -Repeat BCx pending Severe Microcytic Anemia Hb 5.5 initially, no signs of bleeding s/p 3 U PRBC's total, the Hb is now 7.9. FOBT positive. EGD showed ulcer with necrotic base that was not actively bleeding. This was biopsied. Retic Index 0.61, hypoproliferative -GI has been consulted, appreciate recs -Pt refusing daily blood draws, so they are currently q2days Thrombocytopenia Platelets have been slowly downtrending, to lowest of 25. Pt was having bloody stools so was given a 6 pack of platelets on 03/29. His platelets have now improved to 56. Could be 2/2 sepsis vs DIC vs medication induced. -Will continue to monitor Hyperbilirubinemia Bili has been trending up throughout hospitalization with unknown cause. D. bili is elevated as well. Hemolysis labs came back normal. Pt now having acholic stools concerning for a possible obstructive process. -CT abd/pelvis today -Consider HIDA scan vs MRCP pending GI and ID recs -Concerned for recurrence of cancer/metastatic disease Hypoglycemia, resolved Glucose low initially, has been in the low 100's while on D5 1/2 NS -AM cortisol was 8.7 Hypokalemia -Electrolyte replacement protocol Lactic Acidosis, resolved Lactic acid 2.3->6.2->4.9->2.2, s/p fluids Transaminitis, resolved Pt has h/o EtOH abuse and ascites, no known liver disease, but has had a paracentesis before -Trend -GI on board, appreciate recs Malnutrition with severe hypoalbuminemia -Ensure Enlive TID Polysustance abuse -ASE protocol -monitor h/o Gastric Cancer s/p resection with Whipple CEA elevated to 9.77 Gastric ulcer with necrotic base, possibly ischemia, concerning for recurrence -GI on board, appreciate recs Ascites Unknown cause, possibly 2/2 severe hypoalbuminemia -Monitor <Miranda Fournier - Last Filed: 03/30/18 06:58> Attending Addendum - Attending Addendum Date/Time: 03/30/18 1040 I personally evaluated the patient and discussed the management with Dr. Fournier. I agree with the History, Examination, Assessment and Plan documented above with any addition or exceptions noted below. Replacing potassium for severe hypokalemia. Pt remains on antibiotics. Will get CT abd/pelvis today as Tbili and alk phos are continuing to rise. Pt remains on venti mask and is mildy tachypnic. Pulmonology is following. Pt to remain in IMCU today. <Rosetta Card - Last Filed: 03/30/18 10:42>
[2018-03-30] MEDS: Calcium Carbonate 500 MG ChewTAB PO PRN (08:55)
[2018-03-30 10:44] LABS: Potassium 2.8 mmol/L (3.5-5.1)
--- NOTE | 2018-03-30 11:17 | CT ---
ABDOMEN CT WITH CONTRAST PELVIC CT WITH CONTRAST: COMPARISON: 06/06/12, 02/10/18. HISTORY: Stage III gastric cancer. Abnormal liver function tests. Previous Whipple surgery. TECHNIQUE: Abdomen and pelvic CT is performed with IV contrast. Enteric contrast was also administered. Huber ry reformatted images are submitted for interpretation. FINDINGS: Moderate bilateral effusion with adjacent lung parenchymal consolidation due to atelectasis or pneumo franck. Ground-glass opacities are also noted suggesting components of edema or infiltrate. Heart size is normal. There is calcification of the mitral annulus. The visualized aorta has a normal caliber . No paraaortic fat stranding. Moderate hiatal hernia is noted. There is reflux of contrast into the visualized thoracic esophagus. Gastric remnant is unremarkable. Hypodensities are presumed to be due to ingested material. Neopl asm cannot be excluded. There are prominent dilated contrast-filled loops of proximal small bowel. The terminal ileum and distal ileum are decompressed. A component of obstruction cannot be excluded. There appears to be some fecalization of distal small bowel loops. Ileocecal junction is normal. Normal-caliber appendix. There is fecal material in the right hemicolon. Limited evaluation of colo georgina mucosa by technique. Pancreas is poorly defined. There appears to be dilatation of the pancreatic duct. Spleen and adren al glands are unremarkable. Symmetric enhancement of the kidneys. No obstructive uropathy. Heterogeneous appearance of the liver likely due to fatty infiltration as well as areas of fatty spar ing. There are peripherally enhancing essentially hypodense lesions in the liver which have develope d since the prior examination. There is a lesion anterior segment right hepatic lobe measuring 1.8 x 1.4 cm. There is a segment in the posterior right hepatic lobe measuring 1.6 x 2.3 cm. There is di latation of the intrahepatic biliary system which may be reservoir effect from previous cholecystecto my. There is a copious amount of complex fluid in the abdomen with the attenuation coefficient of [address]: Xiao catheter decompresses the urinary bladder. There is no pelvic mass, lymphadenopathy, or free a ir. There is a copious amount of free fluid in the pelvis. No lytic or blastic lesions in the osseous structures. IMPRESSION: 1. Extensive intraabdominal and pelvic fluid. 2. Hypodensities with peripheral enhancement of the liver suggesting areas of metastases. 3. Postsurgical change in the epigastric region. Residual pancreatic tissue is still present. Ther e is dilatation of the pancreatic duct. 4. Fluid-filled and contrast-filled loops of small bowel suggesting an obstructive process. Evaluat ion is incomplete and limited. A definite transition segment is difficult to appreciate on this exam . Further evaluation with a small bowel series if clinically warranted. POS: DILLON
[2018-03-30] MEDS: Pantoprazole 40 MG VIAL IVP SCH ×2 (11:28→21:11)
[2018-03-30] MEDS: Multivit, Therapeutic 1 TAB PO SCH (11:29)
[2018-03-30] MEDS: Folic Acid 1 MG TAB PO SCH (11:29)
[2018-03-30] MEDS: Furosemide 40 MG/4 ML VIAL SLOW IVP SCH (11:29)
[2018-03-30] MEDS: cefTRIAXone\\ROCEPHIN 2 GM in Sodium Chloride 0.9% 100 ML IVPB SCH (14:13)
--- NOTE | 2018-03-30 14:34 | PRG ---
DATE OF SERVICE: 03/30/2018 SUBJECTIVE: Mr. Bush has no acute complaints. He feels abdominal distention. OBJECTIVE: VITAL SIGNS: Temperature 97.7, pulse 95, blood pressure 111/72. GENERAL: He is awake and alert. LUNGS: Clear to auscultation bilaterally. HEART: Regular rate and rhythm. ABDOMEN: Distended. Bowel sounds are present. EXTREMITIES: A 2+ pitting lower extremity edema. LABORATORY DATA: White blood cell count 12.1, hemoglobin 7.9, platelets 56. INR 1.3, bilirubin 10.0 , AST 25, ALT 20, alkaline phosphatase 265, albumin 2.3. IMPRESSION: 1. Ascites. Fluid studies from the last paracentesis in January showed a high-gradient ascites with low total protein consistent with portal hypertension, most likely underlying cirrhosis. He has signifi cant ascites and abdominal distention that is causing respiratory symptoms. We will plan for paracen tesis tomorrow. 2. Bacteremia with biliary dilation and [address] new liver lesions by CT scan. The liver lesions have ha pheral hyperenhancement with hypodense center. We are unable to distinguish between abscess or metas tatic disease by the CT scan alone. Given Klebsiella and Escherichia coli bacteremia, plus the bilia ry dilation and climbing bilirubin, plus the bacteremia, I would favor the liver lesions to be absces ses rather than metastatic disease. CT scan, just a couple of months ago, did not show these lesions and this would be rather rapid change for metastatic disease. 3. History of advanced gastric cancer, status post modified Whipple. He was node positive then. 4. Gastric ulcer. He has had anemia. Does not appear to have ongoing significant overt gastrointes tinal bleeding at this point. The biopsies from the ulcer were benign. Based on the appearance, the ulcer looks more ischemic. RECOMMENDATIONS: 1. Plan is for paracentesis tomorrow for comfort. He could then be more likely to lie still and ach ieve a better imaging procedure following that. We will need to send fluid studies for cytology and again check culture and serum ascites albumin gradient. 2. Plan for MRI with MRCP on Sunday. This may get better information on the bile ducts and hopefull y help differentiate the liver lesions further. 3. He is on antibiotics. If we are unable to ultimately drain or biopsy the liver lesions due to th eir size and position then it might be that we just need to treat with antibiotics and plan followup imaging to see if these decreased. 4. If the bilirubin continues to rise with increasing biliary dilation, then he could potentially ul timately require a drainage procedure. Given his prior surgery, endoscopic drainage will not be an o ption. With his ascites and low platelets, percutaneous cholangiogram will also be complicated. Sudha it further imaging and follow the trend of his bilirubin regarding this. 5. Cholestasis. At this point, I would favor more of an obstructive process given the imaging findi ngs. However, still cholestasis from infection or medications is a consideration. His transaminases remain normal.
--- NOTE | 2018-03-30 17:29 | PRG ---
DATE OF SERVICE: 03/30/2018 SUBJECTIVE: Shadi Duncan is stable. OBJECTIVE: VITAL SIGNS: He is afebrile, heart rate 88, respiratory rate is 18, oximetry 95 on 5 liters, blood p ressure 105/72. LUNGS: Clear. HEART: Regular rhythm. ABDOMEN: Soft. LABORATORY DATA: Hemoglobin 7.9. Sodium 143, potassium 2.8, chloride 109, bicarbonate 27, BUN 11, c reatinine 0.82. White count 12.1, platelets 56,000. CT imaging of his abdomen suggests he may have liver abscesses versus metastatic disease. Dr. Gee feels this is more likely infectious. PLAN: Continue antimicrobial therapy with serial images probably again in a couple of weeks. Contin ue current therapy in the Intermediate Care Unit.
[2018-03-30] MEDS ORDERED: Potassium Chloride 20 MEQ TAB PO SCH (22:45)
--- NOTE | 2018-03-31 00:43 | PRG ---
DATE OF SERVICE: 03/30/2018 SUBJECTIVE: Patient is still in the IMCU. He is awake. Denies any headaches. No shortness of ursula th or chest pain, some abdominal tenderness which is diffuse. No joint symptoms. OBJECTIVE: VITAL SIGNS: Temperature-max 98.9, blood pressure 87/60, pulse 89, respirations 20, O2 sat is 91%. HEENT: Jaundiced sclerae. Ocular movements conjugate, appears no distress. Oral cavity moist. NECK: Supple. LUNGS: Symmetric air entry. HEART: S1, S2, regular rate. ABDOMEN: Slightly distended with diffuse tenderness, but no rebound tenderness. Bowel sounds are di minished. Xiao catheter in place. EXTREMITIES: He is able to move extremities equally. LABORATORY DATA: White cell count is at 12.1, hemoglobin 10.9, platelets 56,000, 66% neutrophils, 21 % bands. INR 1.3. FDP positive. Sodium 143, creatinine 0.82, bilirubin 10.0. AST and ALT normal, alkaline phosphatase 265, albumin 2.3. CEA 9.77. Repeat blood cultures thus far no growth. CT of t he abdomen and pelvis demonstrated extensive intraabdominal pelvic fluid, hypodensities with peripher al enhancement in the liver suggestive of either mets or abscesses per surgical changes in the epigas tric region, dilatation of pancreatic duct. Fluid filled with contrast filled loops of small bowel s uggestive of SBO. ASSESSMENT AND DISCUSSION: Distal gastric cancer history of pancreatic involvement, status post dist al gastrectomy, pancreatectomy, en bloc resection of duodenum with then choledochojejunostomy, Marguerite-e n-Y reconstruction in 2017. Malnutrition with severe hypoalbuminemia and anasarca and hypotension wi th bacteremia with 2 different Gram-negative rods with broad susceptibility profile and now evidence of abnormalities in the abdominal CT scan with fluid small bowel obstruction, possible liver metastas is or more likely hepatic abscesses from cholangitis. Patient might have some stenosis or stricture or blockage of the new bile duct, small bowel anastomosis. The previous CT scan, which was done and just a month and a half ago did not have those changes still I believe that the abscess is more likel y than metastases. Continue antimicrobial therapy with Rocephin. May need a percutaneous aspirate o f those areas, although probably at this time would not be safe to perform management of small bowel obstruction, may need some imaging of the biliary tract.
[2018-03-31 05:38] LABS: Anion Gap 10 mmol/L (10-20); BUN (Urea Nitrogen) 12 mg/dL (8.4-25.7); Calc. Creatinine Clearance 111 mL/min (70-130); Calcium 8.2 mg/dL (7.8-10.44); Carbon Dioxide 27 mmol/L (22-29); Chloride 106 mmol/L (98-107); Estimated GFR-MDRD Greater than 90; Glucose 67 mg/dL (70-105); Potassium 3.2 mmol/L (3.5-5.1); Sodium 140 mmol/L (136-145)
--- NOTE | 2018-03-31 05:41 | PDOC.FM ---
- Subjective Subjective: Pt seen at bedside in NAD. AIDEE overnight. Pt transitioned to NC and tolerating well, notes his SOB has improved. Pt also endorses abdominal distention and is ready to have his paracentesis today. Pt denies GARCIA, CP, palpitations, NVD. - Objective MAR Reviewed: Yes Vital Signs & Weight: Vital Signs (12 hours) Temp Pulse Resp BP Pulse Ox 03/31/18 03:48 99.4 F 99 20 96/65 94 L 03/31/18 02:06 92 L 03/31/18 02:05 95 03/31/18 00:21 26 H 03/30/18 23:38 98.4 F 91 22 H 99/73 94 L 03/30/18 23:13 93 L 03/30/18 23:12 95 03/30/18 19:40 98.5 F 89 28 H 96 03/30/18 19:19 91 L 03/30/18 19:17 95 03/30/18 19:00 98.5 F 89 20 103/75 96 Weight Admit Weight 72.2 kg Weight 72.2 kg Most Recent Monitor Data Heart Rate from ECG 105 NIBP 115/75 NIBP BP-Mean 100 Respiration from ECG 35 SpO2 87 I&O: 03/29/18 03/30/18 03/31/18 06:59 06:59 06:59 Intake Total 525 1250 890 Output Total 2405 1550 1450 Balance -1880 -300 -560 Result Diagrams: 03/31/18 04:55 03/31/18 04:55 <Maikol Khan - Last Filed: 03/31/18 07:20> - Objective Vital Signs & Weight: Vital Signs (12 hours) Temp Pulse Resp BP Pulse Ox 03/31/18 07:48 98.2 F 100 22 H 97 03/31/18 07:30 98.2 F 100 22 H 118/82 95 03/31/18 06:56 94 18 95 03/31/18 03:48 99.4 F 99 20 96/65 94 L 03/31/18 02:06 92 L 03/31/18 02:05 95 Weight Admit Weight 72.2 kg Weight 72.2 kg Most Recent Monitor Data Heart Rate from ECG 105 NIBP 115/75 NIBP BP-Mean 100 Respiration from ECG 35 SpO2 87 I&O: 03/30/18 03/31/18 04/01/18 06:59 06:59 06:59 Intake Total 1250 1200 Output Total 1550 1850 Balance -300 -650 Result Diagrams: 03/31/18 04:55 03/31/18 04:55 <Rosetta Card - Last Filed: 03/31/18 12:42> Phys Exam - Physical Examination Constitutional: NAD HEENT: PERRLA, moist MMs icteric sclera Respiratory: no wheezing bibasilar rhonchi, mild tachypnea Cardiovascular: RRR, no significant murmur Gastrointestinal: soft, positive bowel sounds distended with mild TTP Musculoskeletal: pulses present, edema present 1+ BL lower extremity Neurological: moves all 4 limbs Psychiatric: normal affect, A&O x 3 <Maikol Khan - Last Filed: 03/31/18 07:20> Dx/Plan (1) Gram-negative bacteremia Code(s): R78.81 - BACTEREMIA Status: Acute Plan: -pt presented in septic shock found to be secondary to two Gram- species, E coli and Klebsiella -pt had pressors weaned and has been stable but still hypoTN to low normotensive -ID on board, recommendations greatly appreciated -pt currently on Rocephin, day 5 -pt also had CT abd yesterday which showed 2 new areas on liver concerning for abscess, significant ascites, and biliary dialation -continue with abx and continue to monitor closely (2) Acute respiratory failure with hypoxia Code(s): J96.01 - ACUTE RESPIRATORY FAILURE WITH HYPOXIA Status: Acute Plan: -pt presented and was found to be in septic shock. after fluid resuscitation, developed acute hypoxic respiratory failure initially requiring intubation. he was extubated on 03/26 and has since required intermittent bipap support -pt currently transitioned to 6L via NC and tolerating well -pulmonology on board, recommendations greatly appreciated (3) Ascites Code(s): R18.8 - OTHER ASCITES Status: Acute QualifierTitle: Ascites type: other type Qualified Code(s): R18.8 - Other ascites Plan: -seen on CT abd from 03/30 -plan for IR paracentesis 03/31 -likely contributing to respiratory status -follow up on fluid studies (4) Elevated bilirubin Code(s): R17 - UNSPECIFIED JAUNDICE Status: Acute Plan: -continues to rise with evidence of biliary dilation -GI recs appreciated, possible intervention pending clinical course (5) Hypokalemia Code(s): E87.6 - HYPOKALEMIA Status: Acute Plan: -3.2 this AM, continue to replete -also follow Mg and replace if necessary (6) Thrombocytopenia Code(s): D69.6 - THROMBOCYTOPENIA, UNSPECIFIED Status: Acute Plan: -most recently 55, repeat pending -pt received plts on 03/29 -possibly secondary to sepsis, continue to monitor (7) History of gastric cancer Code(s): Z85.028 - PERSONAL HISTORY OF OTHER MALIGNANT NEOPLASM OF STOMACH Status: Resolved - Plan Plan: disposition: Pt stable at this time. Continue abx for bacteremia and possible liver abscesses. IR paracentesis today. Specialist recommendations greatly appreciated. <Maikol Khan - Last Filed: 03/31/18 07:20> Attending Addendum - Attending Addendum Date/Time: 03/31/18 1241 I personally evaluated the patient and discussed the management with Dr. Khan. I agree with the History, Examination, Assessment and Plan documented above with any addition or exceptions noted below. The patient's respiratory status is improved and is now on a nasal cannula. Will have paracentesis today. Continue IV antibiotics. Other studies are planned in the coming days. Replace potassium. <Rosetta Card - Last Filed: 03/31/18 12:42>
[2018-03-31 07:02] LABS: Anisocytosis MODERATE=16-30 cells (100X) (0-5/hpf); Band 9 % (5-11); Hemoglobin 8.2 g/dL (14.0-18.0); Hypochromia SLIGHT = 6-15 cells (100X) (0-5/hpf); Lymphocytes 6 % (21-51); MDiff Complete? YES; Mean Corpuscular HGB CONC 31.9 g/dL (32.0-36.0); Mean Corpuscular Hemoglobin 26.4 pg (27.0-31.0); Mean Corpuscular Volume 82.7 fL (78.0-98.0); Mean Platelet Volume 10.3 fL (7.4-10.4); Monocytes 1 % (0-10); Neutrophil 84 % (42-75); PLT Morphology Comment Appears Decreased; Platelet Count 55 thou/uL (130-400); RBC Distribution Width 21.7 % (11.5-14.5); Red Blood Cell (RBC) Count 3.12 mill/uL (4.70-6.10); Schistocytes SLIGHT = 2-5 cells (100X) (0-1/hpf); Target Cells MODERATE= 6-15 cells (100X) (0-1/hpf); White Blood Cell (WBC) Count 13.2 thou/uL (4.8-10.8)
[2018-03-31] MEDS ORDERED: Lidocaine 1% PF 5 ML VIAL ONE (09:44)
[2018-03-31] MEDS ORDERED: Sodium Bicarbonate 2.5 MEQ/5 ML VIAL ONE (09:44)
--- NOTE | 2018-03-31 11:12 | ULT ---
ULTRASOUND-GUIDED PARACENTESIS: CLINICAL INDICATION: Ascites. PROCEDURE: After informed consent had been obtained, the patient was escorted to the ultrasound suite and placed in a supine position. The abdomen was imaged which revealed adequate ascites for the procedure. Th e skin of the abdomen was then prepped and draped in the standard sterile fashion and the skin surfac e, subcutaneous tissues, and peritoneal lining of the abdomen were anesthetized with 1% Lidocaine buf fered with sodium bicarbonate. A right lower quadrant approach was selected. A small skin incision was made at the site of topical anesthesia. Subsequently, under real-time ultrasound guidance a GOintegro catheter was advanced through the incision site into the peritoneal cavity. Ascites was present at the catheter hub. The catheter was then secured to vacuum sealed sterile containers, via sterile tub ing and subsequently 5 L of clear yellow ascites was drained from the patient. The patient was then removed from the patient. The patient tolerated the procedure well without evidence of complication. Postprocedure imaging revealed no complication and interval reduction in volume of ascites. The pa tient was monitored by a radiology nurse and was stable in condition. IMPRESSION: Technically successful ultrasound-guided paracentesis, as above. POS: [facility]
[2018-03-31] MEDS: Folic Acid 1 MG TAB PO SCH (12:53)
[2018-03-31] MEDS: Multivit, Therapeutic 1 TAB PO SCH (12:53)
[2018-03-31] MEDS: Furosemide 40 MG/4 ML VIAL SLOW IVP SCH (12:53)
[2018-03-31] MEDS: cefTRIAXone\\ROCEPHIN 2 GM in Sodium Chloride 0.9% 100 ML IVPB SCH (13:46)
[2018-03-31 13:47] LABS: BF Color Yellow; BF RBC Count - Manual 10 /cumm; BF WBC/Nonhematics Ct. - Manua 3 /cumm; Body Fluid Source PARACENTESIS FLD; Clarity Hazy (Clear); Tube # EDTA
--- NOTE | 2018-03-31 15:36 | PRG ---
DATE OF SERVICE: 03/31/2018 SUBJECTIVE: He feels much more comfortable after having paracentesis today. There is no other acute complaints today. OBJECTIVE: VITAL SIGNS: Temperature 97.9, pulse 87, blood pressure 131/70. GENERAL: He is in no acute distress. He is awake and alert. LUNGS: Clear to auscultation bilaterally. HEART: Regular rate and rhythm. ABDOMEN: Soft, nontender, nondistended. Bowel sounds are present. EXTREMITIES: No lower extremity edema. IMPRESSION: 1. Ascites. Fluid studies are negative for SBP. He had 5.7 liters removed today and feels much bet ter. The fluid has been sent for cytology. 2. Bacteremia with biliary dilation and new liver lesions by CT scan. Blood cultures were positive for Klebsiella and E. coli. This is concerning for possible cholangitis and liver abscess. We canno t access the bile ducts given previous surgical history at this time. Clinically, he is doing better with antibiotics at this point. Plan is to follow through with MRCP and MRI tomorrow and to evaluat e the liver lesions further. 3. History of advanced gastric cancer, status post modified Whipple. 4. Gastric ulcer. Hemoglobin is stable at 8.2. RECOMMENDATIONS: 1. MRI/MRCP of the liver tomorrow. Continue proton pump inhibitor. 2. Recheck trend of the liver test tomorrow morning.
[2018-03-31] MEDS: Pantoprazole 40 MG VIAL IVP SCH ×2 (17:22→20:38)
[2018-04-01 04:58] LABS: ALT (SGPT) 31 U/L (8-55); AST (SGOT) 44 U/L (5-34); Albumin 2.1 g/dL (3.5-5.0); Alkaline Phosphatase 576 U/L (40-150); Anion Gap 10 mmol/L (10-20); BUN (Urea Nitrogen) 14 mg/dL (8.4-25.7); Bilirubin, Total 14.2 mg/dL (0.2-1.2); Calc. Creatinine Clearance 111 mL/min (70-130); Calcium 8.1 mg/dL (7.8-10.44); Carbon Dioxide 28 mmol/L (22-29); Chloride 104 mmol/L (98-107); Estimated GFR-MDRD Greater than 90; Globulin 2.3 g/dL (2.4-3.5); Glucose 92 mg/dL (70-105); Magnesium 1.5 mg/dL (1.6-2.6); Phosphorus 2.4 mg/dL (2.3-4.7); Protein, Total 4.4 g/dL (6.0-8.3); Sodium 139 mmol/L (136-145)
[2018-04-01 05:01] LABS: Potassium 2.9 mmol/L (3.5-5.1)
[2018-04-01 05:39] LABS: Anisocytosis MODERATE=16-30 cells (100X) (0-5/hpf); Band 19 % (5-11); Eosinophils 1 % (0-10); Hemoglobin 7.8 g/dL (14.0-18.0); Lymphocytes 4 % (21-51); MDiff Complete? YES; Mean Corpuscular HGB CONC 33.5 g/dL (32.0-36.0); Mean Corpuscular Hemoglobin 27.2 pg (27.0-31.0); Mean Corpuscular Volume 81.2 fL (78.0-98.0); Monocytes 3 % (0-10); Neutrophil 73 % (42-75); PLT Morphology Comment Appears Decreased; Platelet Count 61 thou/uL (130-400); RBC Distribution Width 22.9 % (11.5-14.5); Red Blood Cell (RBC) Count 2.88 mill/uL (4.70-6.10); Target Cells MODERATE= 6-15 cells (100X) (0-1/hpf)
[2018-04-01] MEDS: Potassium Chloride 40 MEQ in Sodium Chloride 0.9% 250 ML 250 ML IVPB PRN ×2 (05:55→12:52)
--- NOTE | 2018-04-01 06:54 | PRG ---
DATE OF SERVICE: 04/01/2018 Shadi Bush is resting comfortably. He underwent paracentesis yesterday. The fluid was relativel y acellular with 3 white cells, 10 red cells, protein of 1.6. He has no complaints of dyspnea. He had almost 6 liters of fluid removed yesterday. PHYSICAL EXAMINATION: LUNGS: His lungs are clear. HEART: Regular rhythm. ABDOMEN: Soft and nontender. EXTREMITIES: Without edema. NEURO: Grossly nonfocal. IMPRESSION: Ascites with cytology pending. Low protein peritoneal fluid arguing against this being in spontaneous bacterial peritonitis, malignant pathology is pending. Cultures are pending. Bacteremia with bile duct dilation and new liver lesions after a Whipple procedure for gastric cancer . Imaging is worrisome for liver lesions that are either mets or abscesses. He is clinically with mult iple organisms growing out of his blood abscesses that seem more likely. He is scheduled for an MRCP today. He is stable in my opinion to move out of the Intermediate Care Unit.
--- NOTE | 2018-04-01 08:44 | PDOC.FM ---
- Subjective Subjective: Patient off oxygen this AM and reports that his breathing is improving. He reports abdominal pain that is worse with any palpation. He is having BM's, most recently this AM. He is tolerating PO without difficulty. He had a fever yesterday evening. - Objective MAR Reviewed: Yes Vital Signs & Weight: Vital Signs (12 hours) Temp Pulse Resp BP Pulse Ox 04/01/18 08:02 99.8 F H 105 H 29 H 91/63 90 L 04/01/18 04:00 99.8 F H 101 H 24 H 98/61 97 04/01/18 02:53 96 03/31/18 23:59 99.8 F H 103 H 22 H 98/65 96 03/31/18 22:32 96 Weight Admit Weight 72.2 kg Weight 72.2 kg Most Recent Monitor Data Heart Rate from ECG 105 NIBP 115/75 NIBP BP-Mean 100 Respiration from ECG 35 SpO2 87 I&O: 03/31/18 04/01/18 04/02/18 06:59 06:59 06:59 Intake Total 1200 970 Output Total 1850 1400 Balance -650 -430 Result Diagrams: 04/01/18 04:20 04/01/18 04:20 <Miranda Fournier - Last Filed: 04/01/18 08:43> - Objective Vital Signs & Weight: Vital Signs (12 hours) Temp Pulse Resp BP Pulse Ox 04/01/18 08:02 99.8 F H 105 H 29 H 91/63 90 L 04/01/18 08:00 99.8 F H 105 H 29 H 90 L 04/01/18 04:00 99.8 F H 101 H 24 H 98/61 97 04/01/18 02:53 96 Weight Admit Weight 72.2 kg Weight 72.2 kg Most Recent Monitor Data Heart Rate from ECG 105 NIBP 115/75 NIBP BP-Mean 100 Respiration from ECG 35 SpO2 87 I&O: 03/31/18 04/01/18 04/02/18 06:59 06:59 06:59 Intake Total 1200 970 Output Total 1850 1400 Balance -650 -430 Result Diagrams: 04/01/18 04:20 04/01/18 04:20 <Wai Johnson - Last Filed: 04/01/18 13:37> Phys Exam - Physical Examination Constitutional: NAD (off oxygen) HEENT: moist MMs icteric sclera Respiratory: no wheezing rhonchi at bilateral lung bases, no use of accessory muscles of respiration Cardiovascular: RRR, no significant murmur, no rub Gastrointestinal: soft, no distention, positive bowel sounds no fluid wave, tender to palpation in all quadrants, no rebound or guarding Musculoskeletal: pulses present, edema present (1+ pitting edema in BLE) Neurological: non-focal, moves all 4 limbs Psychiatric: normal affect, A&O x 3 Skin: normal turgor, cap refill <2 seconds <Miranda Fournier - Last Filed: 04/01/18 08:43> Dx/Plan (1) Acute respiratory failure with hypoxia Code(s): J96.01 - ACUTE RESPIRATORY FAILURE WITH HYPOXIA Status: Acute (2) Septic shock Code(s): A41.9 - SEPSIS, UNSPECIFIED ORGANISM; R65.21 - SEVERE SEPSIS WITH SEPTIC SHOCK Status: Acute (3) CAP (community acquired pneumonia) Code(s): J18.9 - PNEUMONIA, UNSPECIFIED ORGANISM Status: Acute QualifierTitle: Laterality: left Lung location: lower lobe of lung Qualified Code(s): J18.1 - Lobar pneumonia, unspecified organism (4) Severe anemia Code(s): D64.9 - ANEMIA, UNSPECIFIED Status: Acute (5) Hypoglycemia Code(s): E16.2 - HYPOGLYCEMIA, UNSPECIFIED Status: Acute (6) Lactic acidosis Code(s): E87.2 - ACIDOSIS Status: Acute (7) Hypokalemia Code(s): E87.6 - HYPOKALEMIA Status: Acute (8) Hypocalcemia Code(s): E83.51 - HYPOCALCEMIA Status: Acute (9) Transaminitis Code(s): R74.0 - NONSPEC ELEV OF LEVELS OF TRANSAMNS & LACTIC ACID DEHYDRGNSE Status: Acute (10) Elevated bilirubin Code(s): R17 - UNSPECIFIED JAUNDICE Status: Acute (11) Elevated INR Code(s): R79.1 - ABNORMAL COAGULATION PROFILE Status: Acute (12) Alcohol abuse Code(s): F10.10 - ALCOHOL ABUSE, UNCOMPLICATED Status: Acute (13) Marijuana abuse Code(s): F12.10 - CANNABIS ABUSE, UNCOMPLICATED Status: Acute (14) Tobacco abuse Code(s): Z72.0 - TOBACCO USE Status: Acute (15) Anasarca Code(s): R60.1 - GENERALIZED EDEMA Status: Acute (16) Ascites Code(s): R18.8 - OTHER ASCITES Status: Acute QualifierTitle: Ascites type: other type Qualified Code(s): R18.8 - Other ascites (17) History of gastric cancer Code(s): Z85.028 - PERSONAL HISTORY OF OTHER MALIGNANT NEOPLASM OF STOMACH Status: Resolved (18) Thrombocytopenia Code(s): D69.6 - THROMBOCYTOPENIA, UNSPECIFIED Status: Acute (19) Elevated alkaline phosphatase level Status: Acute (20) Hypoalbuminemia Code(s): E88.09 - OTH DISORDERS OF PLASMA-PROTEIN METABOLISM, NEC Status: Acute (21) Malnutrition related to chronic disease Code(s): E46 - UNSPECIFIED PROTEIN-CALORIE MALNUTRITION Status: Acute (22) Microcytic anemia Code(s): D50.9 - IRON DEFICIENCY ANEMIA, UNSPECIFIED Status: Acute - Plan Plan: 58 y/o M presents with weakness and decreased energy is found to be in septic shock and acute hypoxic respiratory failure Septic Shock 2/2 E. coli and Klebsiella bacteremia Pt initially presented in septic shock with low pressures, Tmax 101.7, WBC 12.3 , 42% bands. Only source found has been L perihilar infiltrate and E. coli and Klebsiella bacteremia. Initially required levophed, but that has been titrated off. His MAP's have improved to 70s-80s. CT abd/pelvis concerning for liver abscesses. There is concern for cholangitis with the patient's presentation. -Pt re-fevered on 03/29 and 03/31. Repeat BCx from 03/29 show NG @ 48 hrs -Cont Rocephin -Port cultures NG @ 48 hrs -ID on board, appreciate recs -Plan for abd MRI with MRCP today Acute Hypoxic Respiratory Failure Patient required intubation after receiving fluid resuscitation, likely 2/2 volume overload. Was extubated on 03/26. Required BiPAP on 03/27 and 03/29. CTA showed no evidence of PE, but revealed diffuse ground glass opacities, moderate BL pleural effusions and atelectasis vs infiltrate. Pt now on RA with intermittent NC. -Continue daily lasix -Pulm on board, appreciate recs -Stable to transfer to [facility] Severe Microcytic Anemia Hb 5.5 initially, no signs of bleeding s/p 3 U PRBC's total, the Hb is now 7.8. FOBT positive. EGD showed ulcer with necrotic base that was not actively bleeding. This was biopsied. Retic Index 0.61, hypoproliferative -GI has been consulted, appreciate recs -Pt refusing daily blood draws, so they are currently q2days Thrombocytopenia Platelets have been slowly downtrending, to lowest of 25. Pt was having bloody stools so was given a 6 pack of platelets on 03/29. His platelets have now improved to 61. Could be 2/2 sepsis vs DIC vs medication induced. -Will continue to monitor Hyperbilirubinemia Bili has been trending up throughout hospitalization with unknown cause. D. bili is elevated as well. Hemolysis labs came back normal. Pt now having acholic stools concerning for a possible obstructive process. CT abd/pelvis concerning for liver abscesses vs mets, but with fevers, bacteremia and WBC count increasing the abscess are more likely. Cholestasis is concerning at this point. -Abd MRI with MRCP per GI and ID recs Hypoglycemia, resolved Glucose low initially, has been in the low 100's while on D5 1/2 NS Hypokalemia -Electrolyte replacement protocol Lactic Acidosis, resolved Lactic acid 2.3->6.2->4.9->2.2, s/p fluids Transaminitis, resolved Pt has h/o EtOH abuse and ascites, no known liver disease, but has had a paracentesis before -Trend -GI on board, appreciate recs Malnutrition with severe hypoalbuminemia -Ensure Enlive TID Polysustance abuse -ASE protocol -monitor h/o Gastric Cancer s/p resection with Whipple CEA elevated to 9.77 Gastric ulcer with necrotic base, possibly ischemia -GI on board, appreciate recs Ascites Possibly 2/2 severe hypoalbuminemia Patient got paracentesis on 03/31 with removal of 5.7 L of fluid. No growth from culture at 24 hours. -Monitor <Miranda Fournier - Last Filed: 04/01/18 08:43> Attending Addendum - Attending Addendum Date/Time: 04/01/18 [id number] I personally evaluated the patient and discussed the management with Dr. Fournier I agree with the History, Examination, Assessment and Plan documented above with any addition or exceptions noted below.Concern with low grade fever and escalating WBC count for MRCP today appreciate rec from multiple specialist involved in this case. Repeat blood culture negative initial positive set positive for gram negative rods E.Coli and Klebsiella with coverage documented with Rocephin. <Wai Johnson - Last Filed: 04/01/18 13:37>
[2018-04-01] MEDS ORDERED: Potassium Chloride 40 MEQ in Premix Bag 1 BAG IVPB SCH (09:30)
[2018-04-01] MEDS ORDERED: Magnesium 2 GM/NS 0.9% 100 ML 2 GM in Premix Bag 1 BAG IVPB SCH (09:30)
[2018-04-01] MEDS: Multivit, Therapeutic 1 TAB PO SCH (09:35)
[2018-04-01] MEDS: Furosemide 40 MG/4 ML VIAL SLOW IVP SCH (09:35)
[2018-04-01] MEDS: Folic Acid 1 MG TAB PO SCH (09:35)
[2018-04-01] MEDS: Pantoprazole 40 MG VIAL IVP SCH ×2 (09:40→20:31)
[2018-04-01] MEDS ORDERED: Magnesium Sulfate 2 GM in Sodium Chloride 0.9% 100 ML IVPB SCH (09:45)
[2018-04-01] MEDS: cefTRIAXone\\ROCEPHIN 2 GM in Sodium Chloride 0.9% 100 ML IVPB SCH (11:43)
--- NOTE | 2018-04-01 14:11 | MRI ---
MRI OF THE ABDOMEN WITHOUT AND WITH CONTRAST: Comparison: None. History: Gastric cancer with cirrhosis and liver mass. Technique: Multiplanar, multisequence MRI images were obtained of the abdomen without and with IV con trast. FINDINGS: This exam is limited secondary to significant respiratory motion artifact. There is a 3.2 cm mass in the right lobe of the liver which demonstrates high T2 signal. A second smaller mass measuring 1.8 cm in size in the right lobe of the liver measures 1.8 cm in size. No loss of signal is seen in the eva er on [id number] images. The gallbladder is not seen and has likely been removed. There appears to be enlargement of the pancreatic duct and common bile duct as well as central intrahepatic biliary tr ee. After the administration of contrast, the masses described in the liver demonstrate peripheral en hancement without significant fill in. These could represent complex cysts or necrotic metastases. No mass is seen in the pancreatic head. No abdominal adenopathy is seen. There is a moderate amount of ascites scattered throughout the visualized abdomen. IMPRESSION: 1. There are nonspecific right liver masses which have peripheral enhancement. These could represent necrotic metastases or complex cysts. A follow up exam in three months is recommended to evaluate for stability. 2. There is diffuse biliary dilatation involving the pancreatic duct, common bile duct, and central i ntrahepatic biliary tree. 3. Please note that this exam is significantly limited as significant respiratory motion was seen dur ing the examination as the patient could not follow breathing instructions. POS: DILLON
[2018-04-01] MEDS: Ascorbic Acid 500 mg Chewable Tablet PO SCH (20:31)
--- NOTE | 2018-04-02 07:51 | PRG ---
DATE OF SERVICE: 04/02/2018 He is eating, having bowel movements, soft, mostly. Some abdominal pain, no respiratory symptoms. N o back pain. No neurological symptoms. PHYSICAL EXAMINATION: VITAL SIGNS: T-max 99.8, blood pressure 101/62, pulse 82, respirations 14-16, O2 sat 94%. GENERAL: Awake, alert, oriented. LUNGS: Clear. CARDIOVASCULAR: S1, S2, regular rate. ABDOMEN: Softer, less tenderness. EXTREMITIES: Moves all extremities equally. NEURO: Cognitive function appears to be intact. LABORATORY DATA: White cell count was 15,000, hemoglobin 7.8, platelets 61 which is up. His bands a re 19. Neutrophils are 73%. Chemistry with a sodium of 139, potassium 2.9, magnesium 1.5, bilirubin 14.2, AST 44, alkaline phosphatase 576. Paracentesis with 3 WBCs. The patient had an MRI of the abdomen yesterday which demonstrated right liver masses with peripheral enhancement, likely abscesses associated with dilatation of the pancreatic duct, common bile duct an d central intrahepatic biliary tree. The overall clinical findings are consistent with obstruction of the biliary anastomosis to the jejun um with extrahepatic dilatation of the biliary tree and intrahepatic as well. This was probably asso ciated with cholangitis and the bacteremia that was identified. I believe the liver lesions are like ly to represent abscesses. The patient will need a revision of this biliary enteric anastomosis which is likely the site of obst ruction. Continue antimicrobial therapy for a protracted period of time. The patient is eligible fo r transition to oral treatment with quinolone.
--- NOTE | 2018-04-02 08:06 | PRG ---
DATE OF SERVICE: 04/01/2018 SUBJECTIVE: Mr. Bush is without complaints. He is talking on the phone to relative. He states he has been having stomach pain. He has been eating. He denies any bleeding. OBJECTIVE: VITAL SIGNS: Temperature is 99, pulse 105-89, blood pressure 91/63-100/60. HEENT: The patient is icteric. LUNGS: Clear. CARDIAC: Heart is regular without clicks or murmurs. ABDOMEN: Some fluid shifting dullness, but it is not tense. There is mild fluid wave. EXTREMITIES: No clubbing, cyanosis or edema. LABORATORY DATA AND IMAGING: White count is 15, hemoglobin 7.8, platelet count 61,000. INR is 1.3 o n 03/30/2018. Bilirubin is 14.2, albumin 10.4 on 03/30/2018, tract was 7.7, on the , one episode was 10; alkaline phosphatase is 576, AST and ALT are 44 and 31; albumin is 2.1, protein 4.4. MRI tod ay was limited secondary to motion artifact. There is 3.2 cm mass in the right lobe of liver, smalle r mass 1.8 cm in the right lobe of liver. There is dilation of the pancreatic duct, common bile duct , as well as central intrahepatic biliary tree. The patient's CEA was around 7 when I checked last w [place]. Blood cultures last week revealed E. coli. ASSESSMENT: 1. Gastric ulcer biopsy showed necrosis, but no overt malignancy. The patient's lipase has been nor mal and CEA was at 9.7. 2. History of gastric cancer in the past in 2017, this was a T4 N2 disease and had to be at time of resection had to convert to Whipple procedure. 3. Several months ago, the patient developed ascites, it is felt to be related to malnutrition. Tap revealed no malignancy and serum ascitic albumin gradient indicated portal hypertensive source. The re is no clear evidence that the patient has cirrhosis based on imaging studies, although he has been a heavy drinker in the past. Ascitic fluid is recently re-tapped. 4. Elevated bilirubin of 14 with an AST and ALT of 44 and 31, alkaline phosphatase is 576. CAT scan , MRI apparently showed dilated pancreatic and bile ducts. With the recent Whipple, the patient is n ot a candidate for ERCP as we are not be able to access the pancreaticoduodenal anastomosis secondary to altered anatomy. There may be stricturing here related to the anastomosis stricture or it could be recurrent malignancy. 5. Recent infection with E. coli and Klebsiella in the blood, possibly a biliary origin. RECOMMENDATIONS: 1. Continue present antibiotics. Await for cytology studies. At this time in terms of management o f the dilated biliary tree and elevated enzymes, one option would be a liver biopsy to see if he has got cirrhosis; the other would be to place a biliary stent via the liver. This would have to be done by Interventional Radiology. Alternatively, we will get a consult from General Surgeon, Dr. Neely , to see if he has any new opinion for further evaluation of biliary tree. 2. New liver masses on imaging. These were not seen a few months ago and they could either be absce sses or malignancy. I would recommend that these be biopsied as the next step in this patient's eval uation.
--- NOTE | 2018-04-02 08:10 | PDOC.FM ---
- Subjective Subjective: Patient reports that he feels overall weak from lying in bed. He denies any abdominal pain, N/V, constipation, fevers, chills. He reports that his SOB is continuing to improve. He is tolerating PO without difficulty. He has been refusing PT because he didn't feel up for it. - Objective MAR Reviewed: Yes Vital Signs & Weight: Vital Signs (12 hours) Temp Pulse Resp BP Pulse Ox 04/02/18 06:10 82 14 94 L 04/02/18 04:00 98.9 F 93 20 101/62 93 L 04/02/18 01:59 80 16 04/01/18 21:52 86 16 04/01/18 20:55 98.8 F 100 18 104/66 92 L Weight Admit Weight 72.2 kg Weight 71.94 kg Most Recent Monitor Data Heart Rate from ECG 105 NIBP 115/75 NIBP BP-Mean 100 Respiration from ECG 35 SpO2 87 I&O: 04/01/18 04/02/18 04/03/18 06:59 06:59 06:59 Intake Total 971998 Output Total 1400 500 Balance -430 1499 Result Diagrams: 04/01/18 04:20 04/01/18 04:20 <Miranda Fournier - Last Filed: 04/02/18 08:08> - Objective Vital Signs & Weight: Vital Signs (12 hours) Temp Pulse Resp BP Pulse Ox 04/02/18 09:38 93 16 95 04/02/18 08:00 98.9 F 91 28 H 92/65 96 04/02/18 06:10 82 14 94 L 04/02/18 04:00 98.9 F 93 20 101/62 93 L 04/02/18 01:59 80 16 Weight Admit Weight 72.2 kg Weight 71.94 kg Most Recent Monitor Data Heart Rate from ECG 105 NIBP 115/75 NIBP BP-Mean 100 Respiration from ECG 35 SpO2 87 I&O: 04/01/18 04/02/18 04/03/18 06:59 06:59 06:59 Intake Total 971998 Output Total 1400 500 Balance -430 1499 Result Diagrams: 04/01/18 04:20 04/01/18 04:20 <Alberto Donnelly - Last Filed: 04/02/18 11:54> Phys Exam - Physical Examination Constitutional: NAD cachetic appearing HEENT: moist MMs icteric sclera Respiratory: no wheezing coarse breath sounds diffusely with rhonchi in bases Cardiovascular: RRR, no significant murmur, no rub Gastrointestinal: soft, positive bowel sounds mildly tender over previous surgical scar in midline, no hepatomegaly no guarding, rebound or distension Musculoskeletal: pulses present, edema present (trace pedal edema bilaterally) Neurological: non-focal, moves all 4 limbs Psychiatric: normal affect, A&O x 3 Skin: normal turgor, cap refill <2 seconds <Miranda Fournier - Last Filed: 04/02/18 08:08> Dx/Plan (1) Acute respiratory failure with hypoxia Code(s): J96.01 - ACUTE RESPIRATORY FAILURE WITH HYPOXIA Status: Acute (2) Septic shock Code(s): A41.9 - SEPSIS, UNSPECIFIED ORGANISM; R65.21 - SEVERE SEPSIS WITH SEPTIC SHOCK Status: Acute (3) CAP (community acquired pneumonia) Code(s): J18.9 - PNEUMONIA, UNSPECIFIED ORGANISM Status: Acute QualifierTitle: Laterality: left Lung location: lower lobe of lung Qualified Code(s): J18.1 - Lobar pneumonia, unspecified organism (4) Severe anemia Code(s): D64.9 - ANEMIA, UNSPECIFIED Status: Acute (5) Hypoglycemia Code(s): E16.2 - HYPOGLYCEMIA, UNSPECIFIED Status: Acute (6) Lactic acidosis Code(s): E87.2 - ACIDOSIS Status: Acute (7) Hypokalemia Code(s): E87.6 - HYPOKALEMIA Status: Acute (8) Hypocalcemia Code(s): E83.51 - HYPOCALCEMIA Status: Acute (9) Transaminitis Code(s): R74.0 - NONSPEC ELEV OF LEVELS OF TRANSAMNS & LACTIC ACID DEHYDRGNSE Status: Acute (10) Elevated bilirubin Code(s): R17 - UNSPECIFIED JAUNDICE Status: Acute (11) Elevated INR Code(s): R79.1 - ABNORMAL COAGULATION PROFILE Status: Acute (12) Alcohol abuse Code(s): F10.10 - ALCOHOL ABUSE, UNCOMPLICATED Status: Acute (13) Marijuana abuse Code(s): F12.10 - CANNABIS ABUSE, UNCOMPLICATED Status: Acute (14) Tobacco abuse Code(s): Z72.0 - TOBACCO USE Status: Acute (15) Anasarca Code(s): R60.1 - GENERALIZED EDEMA Status: Acute (16) Ascites Code(s): R18.8 - OTHER ASCITES Status: Acute QualifierTitle: Ascites type: other type Qualified Code(s): R18.8 - Other ascites (17) History of gastric cancer Code(s): Z85.028 - PERSONAL HISTORY OF OTHER MALIGNANT NEOPLASM OF STOMACH Status: Resolved (18) Thrombocytopenia Code(s): D69.6 - THROMBOCYTOPENIA, UNSPECIFIED Status: Acute (19) Elevated alkaline phosphatase level Status: Acute (20) Hypoalbuminemia Code(s): E88.09 - OTH DISORDERS OF PLASMA-PROTEIN METABOLISM, NEC Status: Acute (21) Malnutrition related to chronic disease Code(s): E46 - UNSPECIFIED PROTEIN-CALORIE MALNUTRITION Status: Acute (22) Microcytic anemia Code(s): D50.9 - IRON DEFICIENCY ANEMIA, UNSPECIFIED Status: Acute (23) Hyperbilirubinemia Code(s): E80.6 - OTHER DISORDERS OF BILIRUBIN METABOLISM Status: Acute - Plan Plan: 58 y/o M presents with weakness and decreased energy is found to be in septic shock and acute hypoxic respiratory failure Septic Shock 2/2 E. coli and Klebsiella bacteremia Pt initially presented in septic shock with low pressures, Tmax 101.7, WBC 12.3 , 42% bands. Only source found has been L perihilar infiltrate and E. coli and Klebsiella bacteremia. Initially required levophed, but that has been titrated off. His MAP's have improved to 70s-80s. CT abd/pelvis concerning for liver abscesses. There is concern for cholangitis with the patient's presentation. Abd MRI showed R liver masses with peripheral enhancement concerning for necrotic mets or complex cysts as well as diffuse biliary duct dilatation. -Pt re-fevered on 03/29 and 03/31. Repeat BCx from 03/29 show NG @ 48 hrs -Cont Rocephin -Port cultures NG @ 48 hrs -ID on board, appreciate recs Acute Hypoxic Respiratory Failure 2/2 ARDS Patient required intubation after receiving fluid resuscitation, likely 2/2 volume overload. Was extubated on 03/26. Required BiPAP on 03/27 and 03/29. CTA showed no evidence of PE, but revealed diffuse ground glass opacities, moderate BL pleural effusions and atelectasis vs infiltrate. Pt now on RA. -Continue daily lasix -Pulm on board, appreciate recs Severe Microcytic Anemia Hb 5.5 initially, no signs of bleeding s/p 3 U PRBC's total, the Hb is now 7.8. FOBT positive. EGD showed ulcer with necrotic base that was not actively bleeding. This was biopsied. Retic Index 0.61, hypoproliferative -GI has been consulted, appreciate recs -Pt refusing daily blood draws, so they are currently q2days Thrombocytopenia Platelets have been slowly downtrending, to lowest of 25. Pt was having bloody stools so was given a 6 pack of platelets on 03/29. His platelets have now improved to 61. Could be 2/2 sepsis vs DIC vs medication induced. -Will continue to monitor Hyperbilirubinemia Bili has been trending up throughout hospitalization with unknown cause. D. bili is elevated as well. Hemolysis labs came back normal. Pt now having acholic stools concerning for a possible obstructive process. CT abd/pelvis concerning for liver abscesses vs mets, but with fevers, bacteremia and WBC count increasing the abscess are more likely. Cholestasis is concerning at this point. Abd MRI showed diffuse biliary duct dilatation. -GI on board, appreciate recs h/o Gastric Cancer s/p resection with Whipple CEA elevated to 9.77 Gastric ulcer with necrotic base, possibly ischemia -GI on board, appreciate recs Ascites Possibly 2/2 severe hypoalbuminemia Patient got paracentesis on 03/31 with removal of 5.7 L of fluid. No growth from culture at 24 hours. -Monitor Hypoglycemia, resolved Glucose low initially, has been improved now that pt is eating. Hypokalemia -replete and monitor Lactic Acidosis, resolved Lactic acid 2.3->6.2->4.9->2.2, s/p fluids Transaminitis, resolved Pt has h/o EtOH abuse and ascites, no known liver disease, but has had a paracentesis before -Trend -GI on board, appreciate recs Malnutrition with severe hypoalbuminemia -Ensure Enlive TID Polysustance abuse -ASE protocol -monitor <Miranda Fournier - Last Filed: 04/02/18 08:08> Attending Addendum - Attending Addendum Date/Time: 04/02/18 [id number] I personally evaluated the patient and discussed the management with Dr. Fournier. I agree with and repeated the History, Examination, Assessment and Plan documented above with any addition or exceptions noted below. All problems new to me. E.coli/Klebsiella sepsis likely 2/2 hepatobiliary source related to previous whipple, possibly c/b stricture as precipitating event, with new liver masses vs abscesses, with worsening LFTs but minimal abdominal symptoms today, associated anemia and thrombocytopenia of unclear etiology, as well as a 3 cm benign gastric ulcer, malnutrition, anasarca, and multiple electrolyte abnormalities. He is refusing additional lab draws. Will continue antibiotics. Concerned about PO absorption of antibiotics, will d/w pharmacy. B12 and FA if not already sent. Will discuss with GI/ID and possibly surgery to determine next steps. PT to follow as he is debilitated. SCDs, hold on pharmacologic as he has had persistent thrombocytopenia. Nexium BID. <Alberto Donnelly - Last Filed: 04/02/18 11:54>
[2018-04-02] MEDS: Folic Acid 1 MG TAB PO SCH (09:07)
[2018-04-02] MEDS: Pantoprazole 40 MG VIAL IVP SCH ×2 (09:07→21:07)
[2018-04-02] MEDS: Ascorbic Acid 500 mg Chewable Tablet PO SCH ×2 (09:07→21:07)
[2018-04-02] MEDS: Multivit, Therapeutic 1 TAB PO SCH (09:07)
[2018-04-02] MEDS: Ferrous Sulfate 325 MG TAB PO SCH (09:08)
[2018-04-02] MEDS: Furosemide 40 MG TAB PO SCH (09:09)
[2018-04-02 11:20] LABS: HBV as IU/mL HBV DNA not detected IU/mL (.)
[2018-04-02] MEDS ORDERED: cefTRIAXone\\ROCEPHIN 2 GM, Admixture Fee 1 EACH in Sodium Chloride 0.9% 100 ML IVPB SCH (12:00)
[2018-04-02] MEDS: Calcium Carbonate 500 MG ChewTAB PO PRN (12:12)
--- NOTE | 2018-04-02 13:22 | PRG ---
DATE OF SERVICE: 04/02/2018 SERVICE: Pulmonary Medicine. INTERVAL HISTORY: The patient is doing fine from a respiratory standpoint. He denies any current ch est pain, nausea, vomiting, fevers or chills. He is breathing comfortably. He continues to have alyse e abdominal discomfort. His biggest concern right now is hiccups. PHYSICAL EXAMINATION: VITAL SIGNS: Afebrile, pulse 92, blood pressure 98/62, respirations 16, saturation 95% on room air. GENERAL: The patient is awake, alert, no apparent distress. LUNGS: Decent air entry. There is no prolonged expiratory phase or wheezing. HEART: Normal rate, regular. ABDOMEN: Soft. Nontender and nondistended. Bowel sounds positive. MUSCULOSKELETAL: No cyanosis or clubbing. There is no pitting in the bilateral lower extremities. NEUROLOGIC: Grossly nonfocal. LABORATORY DATA: WBC 15.0, hemoglobin 7.8 and roughly stable, platelets 73,000, bands are 19%, potas sium 2.9 yesterday. ASSESSMENT: 1. Septic shock, resolving. 2. Ascending cholangitis, suspected. 3. Bacteremia secondary to multiple species. 4. History of gastric cancer. PLAN: Pulmonary will continue to follow intermittently during the hospital stay. If his condition d eteriorates, please give me a phone call sooner. Laboratories will be repeated tomorrow morning with focus on the potassium.
--- NOTE | 2018-04-03 01:23 | CON ---
DATE OF CONSULTATION: 04/02/2018 CONSULTING PHYSICIAN: Dr. Ally Willams. REASON FOR CONSULTATION: Hyperbilirubinemia, history of gastric cancer. HISTORY OF PRESENT ILLNESS: Patient is a 58-year-old black male, well known to myself from [facility]. He had presented in 06/2016 to his primary care physicians with symptoms of epigastric abdomin al pain. An upper GI endoscopy was performed, which was felt to be unremarkable in 06/2016. When hi s symptoms persisted, a CT scan was obtained in August of that same year, revealing evidence of dis bety gastric abnormality. A followup endoscopy was performed in 09/2016, which revealed a fungating l arge mass in the distal stomach. The patient was referred to see myself in 10/2016. At that same [facility], I performed an operation, initially planning on performing a distal gastrectomy. At the time of surgery, he was found to have a large lesion eroding through the posterior stomach int o the anterior pancreas. This, therefore, required a Whipple procedure (pancreaticoduodenectomy) to appropriately resect. Pathology at the time of surgery revealed a T4 N2 (with 3 of 16 lymph nodes po sitive), gastric cancer measuring 6 cm in maximum dimension. He subsequently had chemotherapy and ra diation therapy, which completed in 01/2017. Subsequently, in 06/2017, I repaired a small incisional hernia in his mid-abdominal incision. In spite of strong recommendations against this, he continued both to drink fairly heavily and to smo ke. He never really regained his weight after surgery. He had been 170 pounds before surgery. When I operated on him in June, he still weight of 145 pounds. He told me, however, that he felt well . He was eating well and tolerating his diet, in no discomfort. Upper GI endoscopy performed by Dr. Martin in December of this year (a little over a year out from surgery) revealed no evidence of anastomo tic or intragastric abnormality. He returned to the hospital at this time, complaining of feeling weak. He was hospitalized about 9 d ays ago on 03/24/2018 at the [facility]. He was found initially to be anemic with hem oglobin of 5.5. He also had a significant leukocytosis. His initial bilirubin level was elevated at 2.8. CT scan revealed intrahepatic abnormality and massive ascites as well as bilateral pleural eff usion. He subsequently underwent intubation, transfusion, and upper GI endoscopy. Upper GI endoscopy at thi s time revealed a significant 3-cm gastric ulcer superiorly. Biopsies of this were negative for canc er. He also underwent paracentesis revealing about 5 liters of fluid. I could not see evidence that this was submitted for cytology. Cytology from a similar aspiration in January was negative for cancer, however. During the course of his hospitalization, his bilirubin level has elevated daily and has gone up from 2.8 up to 14.2. I reviewed his CT scan from 03/30, this does not appear to demonstrate significant intrahepatic ductal dilatation as though to indicate biliary obstruction. The patient also had an MR I and aside from the lesions within his liver, there is apparently no definite evidence of lymphadeno karon to suggest metastatic disease. CEA level from 03/30 was 9.7. This is up from 5.8 in December. At this time, the patient is on a soft diet. He denies any pain. He notes that he still feels weak, however. His hemoglobin after transfusion has been stable and yesterday was 7.8. His white blood c ell count, however, is still elevated at 15.0. PAST MEDICAL HISTORY: T4 N2 gastric cancer. PAST SURGICAL HISTORY: 1. Ulnar nerve transposition. 2. Pancreaticoduodenectomy in 10/2016. MEDICATIONS PRIOR TO ADMISSION: Neurontin, Protonix, bupropion. ALLERGIES: No known drug allergies. PERSONAL AND SOCIAL HISTORY: Ongoing tobacco abuse and daily alcohol use. He is with 3 chi ldren. He is disabled secondary to back problems. PHYSICAL EXAMINATION: VITAL SIGNS: He is afebrile. His temperature is 98.6. His maximum temperature during admission is 100.8 two days ago. He was afebrile for the first week of his hospitalization. His pulse is 91 and stable, blood pressure is 98/62. GENERAL: He is a well-developed, thin, black male appearing older than stated age. He looks older t [place] the last time I saw him. He is alert and oriented x3 and remembers me and interacts appropriatel y. HEAD, EARS, EYES, NOSE, AND THROAT: Unremarkable. NECK: Supple. LUNGS: Clear to auscultation. CARDIAC: Regular rate and rhythm. ABDOMEN: Soft and nontender. There is no dominant palpable abnormality. He is still oozing a littl e ascitic fluid from his right upper quadrant. A puncture site from his paracentesis 2 days ago. EXTREMITIES: Unremarkable. LABORATORY AND X-RAY FINDINGS: Labs are as referenced above. Jaundice with bilirubin of 14, white b lood cell count was 15 yesterday and hemoglobin 7.8. ASSESSMENT: This gentleman has an unfortunate situation. He had an advanced malignancy at the time of his surgery that in spite of maximum surgical and medical management, still is very high risk for recurrence. His CEA level is having gone up from 5.72 to 9.8, over the course of less than 3 months is very worrisome for recurrent malignancy. I am not certain of the exact etiology of his hyperbilir ubinemia, but his intrahepatic biliary duct stone appears to be significantly dilated. He is not a c andidate for transhepatic stenting because of his ascites. His ascites also makes a very high risk f or biopsy of his hepatic lesion (in addition to the proximity of the hepatic lesion to the dome of th e diaphragm). He is malnourished with an albumin of about 2.1. I am not certain that there are any good percutaneous or endoscopic interventions that will be of aid to him. I am also not sure that he would tolerate or survive a laparotomy to biopsy his liver and/or consider doing anything about his biliary anastomosis. His anastomosis has been patent and functioning well for the past year and a prado lf. It is unlikely that he would have developed a stricture that is progressing so rapidly over the course of this hospitalization, rather I suspect his hyperbilirubinemia is related to either malignan cy or infection. I will continue to follow with you. I suspect that his current condition will like ly not be improved with time and it may be time to consider palliative care and perhaps even hospice.
--- NOTE | 2018-04-03 09:20 | PDOC.FM ---
- Subjective Subjective: Patient refusing all blood draws at this time. He is also refusing to work with PT. He is tolerating PO and denies N/V. He reports having some loose stools and mild abdominal pain. He denies any fevers/chills. - Objective MAR Reviewed: Yes Vital Signs & Weight: Vital Signs (12 hours) Temp Pulse Resp BP Pulse Ox 04/03/18 08:00 98.4 F 96 16 107/63 94 L 04/03/18 07:20 85 14 91 L 04/03/18 04:00 98.9 F 95 18 92/63 94 L 04/03/18 02:17 95 12 04/02/18 21:49 93 12 Weight Admit Weight 72.2 kg Weight 72.212 kg Most Recent Monitor Data Heart Rate from ECG 105 NIBP 115/75 NIBP BP-Mean 100 Respiration from ECG 35 SpO2 87 I&O: 04/02/18 04/03/18 04/04/18 06:59 06:59 06:59 Intake Total 1998 1140 Output Total 500 625 Balance 1499 515 Result Diagrams: 04/01/18 04:20 04/01/18 04:20 <Miranda Fournier - Last Filed: 04/03/18 09:19> - Objective Vital Signs & Weight: Vital Signs (12 hours) Temp Pulse Resp BP Pulse Ox 04/03/18 10:42 95 16 91 L 04/03/18 08:00 98.4 F 96 16 107/63 94 L 04/03/18 07:20 85 14 91 L 04/03/18 04:00 98.9 F 95 18 92/63 94 L 04/03/18 02:17 95 12 Weight Admit Weight 72.2 kg Weight 72.212 kg Most Recent Monitor Data Heart Rate from ECG 105 NIBP 115/75 NIBP BP-Mean 100 Respiration from ECG 35 SpO2 87 I&O: 04/02/18 04/03/18 04/04/18 06:59 06:59 06:59 Intake Total 19980 Output Total 500 625 Balance 1499 515 Result Diagrams: 04/01/18 04:20 04/01/18 04:20 <Alberto Donnelly - Last Filed: 04/03/18 13:04> Phys Exam - Physical Examination Constitutional: NAD HEENT: moist MMs icteric sclera Respiratory: no wheezing coarse breath sounds bilaterally, no use of accessory mm of respiration Cardiovascular: RRR, no significant murmur, no rub Gastrointestinal: soft, positive bowel sounds mildly distended, mildly tender in upper quadrants Musculoskeletal: pulses present, edema present (trace edema in BLE) Neurological: non-focal, moves all 4 limbs Psychiatric: normal affect, A&O x 3 Skin: normal turgor, cap refill <2 seconds <Miranda Fournier - Last Filed: 04/03/18 09:19> Dx/Plan (1) Acute respiratory failure with hypoxia Code(s): J96.01 - ACUTE RESPIRATORY FAILURE WITH HYPOXIA Status: Acute (2) Septic shock Code(s): A41.9 - SEPSIS, UNSPECIFIED ORGANISM; R65.21 - SEVERE SEPSIS WITH SEPTIC SHOCK Status: Acute (3) CAP (community acquired pneumonia) Code(s): J18.9 - PNEUMONIA, UNSPECIFIED ORGANISM Status: Acute QualifierTitle: Laterality: left Lung location: lower lobe of lung Qualified Code(s): J18.1 - Lobar pneumonia, unspecified organism (4) Severe anemia Code(s): D64.9 - ANEMIA, UNSPECIFIED Status: Acute (5) Hypoglycemia Code(s): E16.2 - HYPOGLYCEMIA, UNSPECIFIED Status: Acute (6) Lactic acidosis Code(s): E87.2 - ACIDOSIS Status: Acute (7) Hypokalemia Code(s): E87.6 - HYPOKALEMIA Status: Acute (8) Hypocalcemia Code(s): E83.51 - HYPOCALCEMIA Status: Acute (9) Transaminitis Code(s): R74.0 - NONSPEC ELEV OF LEVELS OF TRANSAMNS & LACTIC ACID DEHYDRGNSE Status: Acute (10) Elevated bilirubin Code(s): R17 - UNSPECIFIED JAUNDICE Status: Acute (11) Elevated INR Code(s): R79.1 - ABNORMAL COAGULATION PROFILE Status: Acute (12) Alcohol abuse Code(s): F10.10 - ALCOHOL ABUSE, UNCOMPLICATED Status: Acute (13) Marijuana abuse Code(s): F12.10 - CANNABIS ABUSE, UNCOMPLICATED Status: Acute (14) Tobacco abuse Code(s): Z72.0 - TOBACCO USE Status: Acute (15) Anasarca Code(s): R60.1 - GENERALIZED EDEMA Status: Acute (16) Ascites Code(s): R18.8 - OTHER ASCITES Status: Acute QualifierTitle: Ascites type: other type Qualified Code(s): R18.8 - Other ascites (17) History of gastric cancer Code(s): Z85.028 - PERSONAL HISTORY OF OTHER MALIGNANT NEOPLASM OF STOMACH Status: Resolved (18) Thrombocytopenia Code(s): D69.6 - THROMBOCYTOPENIA, UNSPECIFIED Status: Acute (19) Elevated alkaline phosphatase level Status: Acute (20) Hypoalbuminemia Code(s): E88.09 - OTH DISORDERS OF PLASMA-PROTEIN METABOLISM, NEC Status: Acute (21) Malnutrition related to chronic disease Code(s): E46 - UNSPECIFIED PROTEIN-CALORIE MALNUTRITION Status: Acute (22) Microcytic anemia Code(s): D50.9 - IRON DEFICIENCY ANEMIA, UNSPECIFIED Status: Acute (23) Hyperbilirubinemia Code(s): E80.6 - OTHER DISORDERS OF BILIRUBIN METABOLISM Status: Acute - Plan Plan: 58 y/o M presents with weakness and decreased energy is found to be in septic shock and acute hypoxic respiratory failure Septic Shock 2/2 E. coli and Klebsiella bacteremia - suspected cholangitis Pt initially presented in septic shock with low pressures, Tmax 101.7, WBC 12.3 , 42% bands. Only source found has been L perihilar infiltrate and E. coli and Klebsiella bacteremia. Initially required levophed, but that has been titrated off. His MAP's have improved to 70s-80s. CT abd/pelvis concerning for liver abscesses. There is concern for cholangitis with the patient's presentation. Abd MRI showed R liver masses with peripheral enhancement concerning for necrotic mets or complex cysts as well as diffuse biliary duct dilatation. -Pt re-fevered on 03/29 and 03/31. Repeat BCx from 03/29 show NG @ 48 hrs -Transitioned to PO levaquin from Rocephin per ID recs yesterday -Port cultures NG @ 48 hrs -ID on board, appreciate recs -Gen surg on board, appreciate recs -pt has a poor prognosis and is refusing blood draws and PT at this time and is not a surgical candidate, will continue to discuss treatment options vs palliative care with pt and family Acute Hypoxic Respiratory Failure 2/2 ARDS Patient required intubation after receiving fluid resuscitation, likely 2/2 volume overload. Was extubated on 03/26. Required BiPAP on 03/27 and 03/29. CTA showed no evidence of PE, but revealed diffuse ground glass opacities, moderate BL pleural effusions and atelectasis vs infiltrate. Pt now on RA. -Continue daily lasix -Pulm on board, appreciate recs Severe Microcytic Anemia Hb 5.5 initially, no signs of bleeding s/p 3 U PRBC's total, the Hb is now 7.8. FOBT positive. EGD showed ulcer with necrotic base that was not actively bleeding. This was biopsied. Retic Index 0.61, hypoproliferative -GI has been consulted, appreciate recs -Pt refusing daily blood draws, so they are currently q2days Thrombocytopenia Platelets have been slowly downtrending, to lowest of 25. Pt was having bloody stools so was given a 6 pack of platelets on 03/29. His platelets have now improved to 61. Could be 2/2 sepsis vs DIC vs medication induced. -Will continue to monitor Hyperbilirubinemia Bili has been trending up throughout hospitalization with unknown cause. D. bili is elevated as well. Hemolysis labs came back normal. Pt now having acholic stools concerning for a possible obstructive process. CT abd/pelvis concerning for liver abscesses vs mets, but with fevers, bacteremia and WBC count increasing the abscess are more likely. Cholestasis is concerning at this point. Abd MRI showed diffuse biliary duct dilatation. -GI on board, appreciate recs h/o Gastric Cancer s/p resection with Whipple CEA elevated to 9.77 Gastric ulcer with necrotic base, possibly ischemia -GI on board, appreciate recs Ascites Possibly 2/2 severe hypoalbuminemia Patient got paracentesis on 03/31 with removal of 5.7 L of fluid. No growth from culture at 24 hours. -Monitor Hypoglycemia, resolved Glucose low initially, has been improved now that pt is eating. Hypokalemia -replete and monitor Lactic Acidosis, resolved Lactic acid 2.3->6.2->4.9->2.2, s/p fluids Transaminitis, resolved Pt has h/o EtOH abuse and ascites, no known liver disease, but has had a paracentesis before -Trend -GI on board, appreciate recs Malnutrition with severe hypoalbuminemia -Ensure Enlive TID Polysustance abuse -ASE protocol -monitor <Miranda Fournier - Last Filed: 07/11/18 09:19> Attending Addendum - Attending Addendum Date/Time: 04/03/18 1300 I personally evaluated the patient and discussed the management with Dr. Fournier and team. I agree with and repeated the History, Examination, Assessment and Plan documented above with any addition or exceptions noted below. Appreciate consultants recommendations. Long discussion, approximately 40 minutes with the patient today. He says he is feeling tired and weak, with a bit of abdominal pain but no big changes from yesterday. He was very antagonistic this morning, and continues to refuse blood draws or to work with physical therapy despite very gentle urging. He states that he is tired of getting poked, and he is too tired to work with PT. We discussed that labs may reveal the reason for this, such as worsened anemia or continued electrolyte abnormalities, but he does not want anything else checked. We discussed his prognosis, which is poor, and after much discussion he is amenable to talking with palliative care. He unfortunately has a very guarded prognosis. <Alberto Donnelly - Last Filed: 04/03/18 13:04>
[2018-04-03] MEDS: Folic Acid 1 MG TAB PO SCH (10:06)
[2018-04-03] MEDS: Multivit, Therapeutic 1 TAB PO SCH (10:07)
[2018-04-03] MEDS: Ferrous Sulfate 325 MG TAB PO SCH (10:07)
[2018-04-03] MEDS: Furosemide 40 MG TAB PO SCH (10:07)
[2018-04-03] MEDS: Ascorbic Acid 500 mg Chewable Tablet PO SCH ×2 (10:07→21:13)
[2018-04-03] MEDS: Pantoprazole 40 MG VIAL IVP SCH ×2 (10:07→23:22)
--- NOTE | 2018-04-03 11:10 | PRG ---
DATE OF SERVICE: 04/02/2018 SUBJECTIVE: Mr. Bush was moved out of the IMU to the floor. The nurse notes he has had some mucoi d stool today, does not smell like C. difficile. He is without complaints. He is very weak and havi ng difficulty getting out of bed. MEDICATIONS: Reviewed, include thiamine, Protonix, multivitamin, magnesium IV p.r.n., Levaquin, gluc agon, furosemide 40 daily, folic acid, iron sulfate. PHYSICAL EXAMINATION: VITAL SIGNS: Temperature 99.7, pulse 92, blood pressure is 102/69. GENERAL: He is very frail. He has muscle wasting. ABDOMEN: Nontender. He has got some fluid wave on abdominal exam. EXTREMITIES: No edema peripherally. LABORATORY STUDIES: The patient refused labs today. ASSESSMENT: 1. Diarrhea, this is new. We need to check a stool for Clostridium difficile. 2. Gastric ulcer, large bowel showed necrosis, but no overt malignancy. This still could be maligna nt or it could be ischemic. The patient's CEA has increased over 3 months from 5.82-9.77. 3. History of gastric cancer, it was a stage 3B. He did have some adjunctive chemotherapy for the p ast year and a half. 4. Substance abuse, mainly alcohol in the past. He stopped drinking about a month ago he reports. 5. Admitted with respiratory failure and sepsis. Ultimately, he grew out Escherichia coli and Klebs iella in the blood. He showed signs of prominent pancreatic duct and common bile duct in a setting of previous Whipple fo r an advanced gastric cancer. He has developed ascites. It is unclear if he has got some cirrhosis, but the radiologist did not see any overt signs of this on imaging. Patient does have a low albumin , elevated liver enzymes, there may be a component of ____. Extensive workup for underlying cause of liver disease from autoimmune standpoint and vital standpoint had been negative. He could have unde rlying cirrhosis. Part of his LFT elevation may be related to his biliary outlet obstruction and the cause of biliary obstruction could be just stenosis postsurgical state, though malignancy is my main concern. I have had a long conversation with Dr. Neely, his surgeon, reviewed his films with Radiology. The y do not feel the lesions in the liver are biopsiable, because they are too high in the dome. Furthe rmore, they do not feel they can safely put a percutaneous drain in his biliary system, with his asci dany they are concerned about a continuous leak or contamination and increased risk of bleeding was st icking the liver in the setting of ascites. I talked with Dr. Neely. He was quite concerned as I about the risk of recurrence of malignancies, especially increasing CEA. Prognosis is very poor over all. RECOMMENDATIONS: 1. Nutrition. He may need to have a Dobbhoff tube placed for feeding if he is not going to eat. 2. Continue IV PPI. 3. Continue antibiotics. 4. Check stool for Clostridium difficile. 5. Replace electrolytes as needed. 6. Prolonged IV antibiotics with plan for repeat imaging of the abdomen in 4-6 weeks.
[2018-04-03 15:41] LABS: ALT (SGPT) 75 U/L (8-55); AST (SGOT) 86 U/L (5-34); Alkaline Phosphatase 525 U/L (40-150); Anion Gap 10 mmol/L (10-20); BUN (Urea Nitrogen) 11 mg/dL (8.4-25.7); Bilirubin, Total 17.9 mg/dL (0.2-1.2); Calc. Creatinine Clearance 127 mL/min (70-130); Calcium 7.8 mg/dL (7.8-10.44); Carbon Dioxide 26 mmol/L (22-29); Chloride 105 mmol/L (98-107); Estimated GFR-MDRD Greater than 90; Globulin 2.4 g/dL (2.4-3.5); Glucose 96 mg/dL (70-105); Magnesium 1.6 mg/dL (1.6-2.6); Phosphorus 2.7 mg/dL (2.3-4.7); Potassium 3.2 mmol/L (3.5-5.1); Protein, Total 4.4 g/dL (6.0-8.3); Sodium 138 mmol/L (136-145)
[2018-04-03 15:45] LABS: #Eosinphils 0.1 thou/uL (0.0-0.7); #Lymphocytes 0.8 thou/uL (1.20-3.40); #Monocytes 0.4 thou/uL (0.11-0.59); #Neutrophils 14.6 thou/uL (1.40-6.50); %Basophils 0.1 % (0.0-1.0); %Eosinophils 0.6 % (0.0-10.0); %Lymphocytes 5.1 % (21.0-51.0); %Monocytes 2.3 % (0.0-10.0); %Neutrophils 91.9 % (42.0-75.0); Hemoglobin 7.4 g/dL (14.0-18.0); Mean Corpuscular HGB CONC 33.3 g/dL (32.0-36.0); Mean Corpuscular Hemoglobin 27.8 pg (27.0-31.0); Mean Corpuscular Volume 83.5 fL (78.0-98.0); Mean Platelet Volume 8.4 fL (7.4-10.4); Platelet Count 154 thou/uL (130-400); RBC Distribution Width 25.7 % (11.5-14.5); Red Blood Cell (RBC) Count 2.65 mill/uL (4.70-6.10); White Blood Cell (WBC) Count 15.9 thou/uL (4.8-10.8)
[2018-04-03] MEDS ORDERED: Potassium Chloride 40 MEQ in Sodium Chloride 0.9% 250 ML 250 ML IVPB SCH (18:30)
[2018-04-03] MEDS ORDERED: Acetaminophen 325 MG TAB PO SCH (19:00)
--- NOTE | 2018-04-04 03:06 | PRG ---
DATE OF SERVICE: 04/03/2018 SUBJECTIVE: Mr. Bush states he has a headache ____ very good, otherwise he is without complaints. PHYSICAL EXAMINATION: VITAL SIGNS: Temperature is 98.4, pulse 97, blood pressure 107/63. LUNGS: Clear. HEART: Regular rate and rhythm without clicks, rubs, or murmurs. ABDOMEN: ____ dullness in fluid wave. There is right upper quadrant fullness, nausea, rebound or te nderness. LABORATORY DATA AND IMAGING DATA: Sodium 138, potassium 3.2, BUN and creatinine 11 and 0.63, bilirub in 17.9, AST and ALT are 86 and 75, alkaline phosphatase of 252. Albumin is 2, protein is 4.4. Whit e count is 15.9, hemoglobin 7.4, platelet count 154. Ascites on 03/31/2018 showed 3 white blood cell s. Cytology specimen was not sent on the fluid that was taken for paracentesis on this admission; vicenta hope, on admission 02/11/2018, Cytology was negative. Microbiology; C. diff and stool yesterday was negative. Body fluid culture was negative. ASSESSMENT: 1. Elevated and increasing bilirubin. I think this prior more related to hepatic dysfunction, but i t probably is also a component of obstruction. In talking with Radiology and Surgery yesterday the d ay before, he is not a candidate for percutaneous drainage of the biliary tree secondary to significa nt amount of ascites he has and it is felt that he is at high risk of morbidity and mortality if he h ad repeat operation at this time with ascites. 2. Hepatic abscess. 3. Hepatic masses or likely abscesses. 4. Increasing CEA with prior history of advanced gastric cancer diagnosis with significant risk this represents recurrent malignancy. RECOMMENDATIONS: We will get a HIDA scan tomorrow if he has very slow uptake of tracer by the liver. We can definitely back a component of hepatocellular dysfunction such as cirrhosis, however, rapid uptake in the liver and poor excretion and now will be more of a sign of biliary obstruction. This m ay help us further along. PLAN: At this time, I would continue to treat him aggressively with antibiotics. I think that any o ther interventions percutaneously would require transfer to a higher level of care where more advance d Interventional Radiology may be available.
--- NOTE | 2018-04-04 08:56 | PDOC.FM ---
- Subjective Subjective: Patient reports feeling dizzy when he sits up, but attempting to sit up this AM , which is improvement. He says he will try to work with PT today. He denies any abdominal pain, but reports 4 episodes of diarrhea last night. He still reports persistent hiccups. He denies any fevers/chills. - Objective MAR Reviewed: Yes Vital Signs & Weight: Vital Signs (12 hours) Temp Pulse Resp BP Pulse Ox 04/04/18 07:18 94 L 04/04/18 07:17 98 18 94 L 04/04/18 04:55 98.8 F 89 20 95/59 L 96 04/04/18 02:38 12 04/03/18 23:45 99.4 F 97 14 85/54 L 94 L 04/03/18 22:10 90 12 Weight Admit Weight 72.2 kg Weight 72.212 kg Most Recent Monitor Data Heart Rate from ECG 105 NIBP 115/75 NIBP BP-Mean 100 Respiration from ECG 35 SpO2 87 I&O: 04/03/18 04/04/18 04/05/18 06:59 06:59 06:59 Intake Total 1140 570 Output Total 625 425 Balance 515 145 Result Diagrams: 04/03/18 15:14 04/03/18 15:14 <Miranda Fournier - Last Filed: 04/04/18 10:33> - Objective Vital Signs & Weight: Vital Signs (12 hours) Temp Pulse Pulse Pulse Resp BP BP 04/04/18 09:19 100 91 128/77 124/74 04/04/18 08:00 99.1 F 97 18 04/04/18 07:50 99.1 F 97 18 04/04/18 07:18 04/04/18 07:17 98 18 04/04/18 04:55 98.8 F 89 20 04/04/18 02:38 12 BP Pulse Ox Pulse Ox Pulse Ox 04/04/18 09:19 91 L 88 L 04/04/18 08:00 99 04/04/18 07:50 97/62 99 04/04/18 07:18 94 L 04/04/18 07:17 94 L 04/04/18 04:55 95/59 L 96 04/04/18 02:38 Weight Admit Weight 72.2 kg Weight 72.212 kg Most Recent Monitor Data Heart Rate from ECG 105 NIBP 115/75 NIBP BP-Mean 100 Respiration from ECG 35 SpO2 87 I&O: 04/03/18 04/04/18 04/05/18 06:59 06:59 06:59 Intake Total 1140 570 Output Total 625 425 Balance 515 145 Result Diagrams: 04/03/18 15:14 04/03/18 15:14 <Alberto Donnelly - Last Filed: 04/04/18 12:56> Phys Exam - Physical Examination Constitutional: NAD HEENT: moist MMs Respiratory: no wheezing, no rales rhonchi in bilateral lung bases Cardiovascular: RRR, no significant murmur, no rub Gastrointestinal: soft, positive bowel sounds mildly distended, mildly tender diffusely Musculoskeletal: edema present (trace edema in bilateral LE) Neurological: non-focal, moves all 4 limbs Psychiatric: normal affect, A&O x 3 Skin: normal turgor, cap refill <2 seconds <Miranda Fournier - Last Filed: 04/04/18 10:33> Dx/Plan (1) Acute respiratory failure with hypoxia Code(s): J96.01 - ACUTE RESPIRATORY FAILURE WITH HYPOXIA Status: Acute (2) Septic shock Code(s): A41.9 - SEPSIS, UNSPECIFIED ORGANISM; R65.21 - SEVERE SEPSIS WITH SEPTIC SHOCK Status: Acute (3) CAP (community acquired pneumonia) Code(s): J18.9 - PNEUMONIA, UNSPECIFIED ORGANISM Status: Acute QualifierTitle: Laterality: left Lung location: lower lobe of lung Qualified Code(s): J18.1 - Lobar pneumonia, unspecified organism (4) Severe anemia Code(s): D64.9 - ANEMIA, UNSPECIFIED Status: Acute (5) Hypoglycemia Code(s): E16.2 - HYPOGLYCEMIA, UNSPECIFIED Status: Acute (6) Lactic acidosis Code(s): E87.2 - ACIDOSIS Status: Acute (7) Hypokalemia Code(s): E87.6 - HYPOKALEMIA Status: Acute (8) Hypocalcemia Code(s): E83.51 - HYPOCALCEMIA Status: Acute (9) Transaminitis Code(s): R74.0 - NONSPEC ELEV OF LEVELS OF TRANSAMNS & LACTIC ACID DEHYDRGNSE Status: Acute (10) Elevated bilirubin Code(s): R17 - UNSPECIFIED JAUNDICE Status: Acute (11) Elevated INR Code(s): R79.1 - ABNORMAL COAGULATION PROFILE Status: Acute (12) Alcohol abuse Code(s): F10.10 - ALCOHOL ABUSE, UNCOMPLICATED Status: Acute (13) Marijuana abuse Code(s): F12.10 - CANNABIS ABUSE, UNCOMPLICATED Status: Acute (14) Tobacco abuse Code(s): Z72.0 - TOBACCO USE Status: Acute (15) Anasarca Code(s): R60.1 - GENERALIZED EDEMA Status: Acute (16) Ascites Code(s): R18.8 - OTHER ASCITES Status: Acute QualifierTitle: Ascites type: other type Qualified Code(s): R18.8 - Other ascites (17) History of gastric cancer Code(s): Z85.028 - PERSONAL HISTORY OF OTHER MALIGNANT NEOPLASM OF STOMACH Status: Resolved (18) Thrombocytopenia Code(s): D69.6 - THROMBOCYTOPENIA, UNSPECIFIED Status: Acute (19) Elevated alkaline phosphatase level Status: Acute (20) Hypoalbuminemia Code(s): E88.09 - OTH DISORDERS OF PLASMA-PROTEIN METABOLISM, NEC Status: Acute (21) Malnutrition related to chronic disease Code(s): E46 - UNSPECIFIED PROTEIN-CALORIE MALNUTRITION Status: Acute (22) Microcytic anemia Code(s): D50.9 - IRON DEFICIENCY ANEMIA, UNSPECIFIED Status: Acute (23) Hyperbilirubinemia Code(s): E80.6 - OTHER DISORDERS OF BILIRUBIN METABOLISM Status: Acute (24) Hiccups Code(s): R06.6 - HICCOUGH Status: Acute - Plan Plan: 58 y/o M presents with weakness and decreased energy is found to be in septic shock and acute hypoxic respiratory failure Septic Shock 2/2 E. coli and Klebsiella bacteremia - suspected cholangitis Pt initially presented in septic shock with low pressures, Tmax 101.7, WBC 12.3 , 42% bands. Only source found has been L perihilar infiltrate and E. coli and Klebsiella bacteremia. Initially required levophed, but that has been titrated off. His MAP's have improved to 70s-80s. CT abd/pelvis concerning for liver abscesses. There is concern for cholangitis with the patient's presentation. Abd MRI showed R liver masses with peripheral enhancement concerning for necrotic mets or complex cysts as well as diffuse biliary duct dilatation. -Pt re-fevered on 03/29 and 03/31. Repeat BCx from 03/29 show NG @ 48 hrs -Transitioned to PO levaquin from Rocephin per ID recs -Port cultures NG @ 5 days -ID on board, appreciate recs -Gen surg on board, appreciate recs -pt has a poor prognosis, discussed that he wanted full treatment with palliative care, but has limited treatment options as he is not a surgical candidate. -HIDA scan today per GI -Continue PT/OT, rehab screen Acute Hypoxic Respiratory Failure 2/2 ARDS - resolved Patient required intubation after receiving fluid resuscitation, likely 2/2 volume overload. Was extubated on 03/26. Required BiPAP on 03/27 and 03/29. CTA showed no evidence of PE, but revealed diffuse ground glass opacities, moderate BL pleural effusions and atelectasis vs infiltrate. Pt now on RA. -Continue daily lasix -Pulm on board, appreciate recs Severe Microcytic Anemia Hb 5.5 initially, no signs of bleeding s/p 3 U PRBC's total, the Hb is now 7.4. FOBT positive. EGD showed ulcer with necrotic base that was not actively bleeding. This was biopsied. Retic Index 0.61, hypoproliferative -GI has been consulted, appreciate recs -Pt refusing daily blood draws, so they are currently q2days Thrombocytopenia Platelets have been slowly downtrending, to lowest of 25. Pt was having bloody stools so was given a 6 pack of platelets on 03/29. His platelets have now improved to 154. Could be 2/2 sepsis vs DIC vs medication induced. -Will continue to monitor Hyperbilirubinemia Bili has been trending up throughout hospitalization with unknown cause. D. bili is elevated as well. Hemolysis labs came back normal. Pt now having acholic stools concerning for a possible obstructive process. CT abd/pelvis concerning for liver abscesses vs mets, but with fevers, bacteremia and WBC count increasing the abscess are more likely. Cholestasis is concerning at this point. Abd MRI showed diffuse biliary duct dilatation. -GI on board, appreciate recs h/o Gastric Cancer s/p resection with Whipple CEA elevated to 9.77 Gastric ulcer with necrotic base, possibly ischemia -GI on board, appreciate recs Ascites Possibly 2/2 severe hypoalbuminemia Patient got paracentesis on 03/31 with removal of 5.7 L of fluid. No growth from culture at 24 hours. -Monitor Hypoglycemia, resolved Glucose low initially, has been improved now that pt is eating. Hypokalemia -replete and monitor Lactic Acidosis, resolved Lactic acid 2.3->6.2->4.9->2.2, s/p fluids Transaminitis, resolved Pt has h/o EtOH abuse and ascites, no known liver disease, but has had a paracentesis before -Trend -GI on board, appreciate recs Malnutrition with severe hypoalbuminemia -Ensure Enlive TID -Consult Dietitian Polysustance abuse -ASE protocol -monitor Hiccups -Will start chlorpromazine <Miranda Fournier - Last Filed: 04/04/18 10:33> Attending Addendum - Attending Addendum Date/Time: 04/04/18 0308 I personally evaluated the patient and discussed the management with Dr. Fournier. I agree with and repeated the History, Examination, Assessment and Plan documented above with any addition or exceptions noted below. Pt with improved labs. HIDA today per GI. Continue antibiotics. Patient now working with PT. Guarded prognosis. <Alberto Donnelly - Last Filed: 04/04/18 12:56>
[2018-04-04] MEDS: Multivit, Therapeutic 1 TAB PO SCH (09:00)
[2018-04-04] MEDS: Ascorbic Acid 500 mg Chewable Tablet PO SCH ×2 (09:00→21:22)
[2018-04-04] MEDS: Folic Acid 1 MG TAB PO SCH (09:00)
[2018-04-04] MEDS ORDERED: Ibuprofen 600 MG TAB PO SCH (09:45)
[2018-04-04] MEDS: Pantoprazole 40 MG VIAL IVP SCH ×2 (16:40→21:22)
[2018-04-04] MEDS: chlorproMAZINE HCl 25 MG TAB PO SCH (16:41)
[2018-04-04] MEDS: Furosemide 40 MG TAB PO SCH (16:41)
[2018-04-04] MEDS: Ferrous Sulfate 325 MG TAB PO SCH (16:42)
--- NOTE | 2018-04-05 02:41 | PRG ---
DATE OF SERVICE: 04/04/2018 SUBJECTIVE: Mr. Bush states he feels about the same since yesterday. He did the HIDA scan, the re sults are not back. OBJECTIVE: VITAL SIGNS: Temperature is 99, pulse 72, blood pressure 100/67. GENERAL: He remains icteric. ABDOMEN: Shifting dullness and fluid wave. EXTREMITIES: Reveal no edema. LABORATORY DATA: Today none. HIDA scan results pending. ASSESSMENT: No real changes from yesterday. Awaiting HIDA scan to differentiate between the compone nt of poor hepatic synthetic function versus biliary obstruction. We will check back on that tomorro w.
[2018-04-05] MEDS: chlorproMAZINE HCl 25 MG TAB PO SCH ×3 (04:19→20:46)
[2018-04-05 08:07] LABS: #Eosinphils 0.1 thou/uL (0.0-0.7); #Lymphocytes 0.5 thou/uL (1.20-3.40); #Monocytes 0.4 thou/uL (0.11-0.59); #Neutrophils 12.7 thou/uL (1.40-6.50); %Basophils 0.1 % (0.0-1.0); %Eosinophils 0.8 % (0.0-10.0); %Lymphocytes 3.7 % (21.0-51.0); %Monocytes 2.8 % (0.0-10.0); %Neutrophils 92.6 % (42.0-75.0); Hemoglobin 7.2 g/dL (14.0-18.0); Mean Corpuscular HGB CONC 32.6 g/dL (32.0-36.0); Mean Corpuscular Hemoglobin 27.9 pg (27.0-31.0); Mean Corpuscular Volume 85.6 fL (78.0-98.0); Mean Platelet Volume 11.3 fL (7.4-10.4); Platelet Count 255 thou/uL (130-400); RBC Distribution Width 25.3 % (11.5-14.5); Red Blood Cell (RBC) Count 2.57 mill/uL (4.70-6.10); White Blood Cell (WBC) Count 13.8 thou/uL (4.8-10.8)
[2018-04-05] MEDS: Ferrous Sulfate 325 MG TAB PO SCH (08:11)
[2018-04-05] MEDS: Ascorbic Acid 500 mg Chewable Tablet PO SCH ×2 (08:11→20:46)
[2018-04-05] MEDS: Pantoprazole 40 MG VIAL IVP SCH (08:11)
[2018-04-05] MEDS: Folic Acid 1 MG TAB PO SCH (08:11)
[2018-04-05] MEDS: Furosemide 40 MG TAB PO SCH (08:11)
[2018-04-05] MEDS: Multivit, Therapeutic 1 TAB PO SCH (08:11)
[2018-04-05] MEDS ORDERED: Ketorolac Tromethamine 30 MG/ML VIAL IVP SCH (08:30)
--- NOTE | 2018-04-05 08:33 | PDOC.FM ---
Addendum entered and electronically signed by Miranda Fournier MD 04/05/18 13:14: HIDA scan revealed biliary tract obstruction. Due to this, it will be attempted to transfer the patient to higher level of care where this obstruction could be relieved, otherwise, the patient will continue to have infection and become septic again once abx are discontinued and his liver function will continue to worsen. Original Note: - Subjective Subjective: Patient denies any complaints this AM. He reports his hiccups have improved. He denies abdominal pain, N/V, fever, chills. - Objective MAR Reviewed: Yes Vital Signs & Weight: Vital Signs (12 hours) Temp Pulse Resp BP Pulse Ox 04/05/18 08:09 90 20 93/53 L 92 L 04/05/18 07:38 98.0 F 95 18 85/45 L 91 L 04/05/18 06:35 97 16 94 L 04/05/18 04:00 97.6 F 97 18 90/44 L 94 L 04/05/18 01:16 98 04/05/18 00:00 99.1 F 105 H 18 96/49 L 91 L Weight Admit Weight 72.2 kg Weight 72.212 kg Most Recent Monitor Data Heart Rate from ECG 105 NIBP 115/75 NIBP BP-Mean 100 Respiration from ECG 35 SpO2 87 I&O: 04/04/18 04/05/18 04/06/18 06:59 06:59 06:59 Intake Total 570 360 Output Total 425 250 Balance 145 110 Result Diagrams: 04/05/18 07:56 04/03/18 15:14 <Miranda Fournier - Last Filed: 04/05/18 08:28> - Objective Vital Signs & Weight: Vital Signs (12 hours) Temp Pulse Resp BP Pulse Ox 04/05/18 16:32 97.9 F 92 20 90/44 L 93 L 04/05/18 12:01 88 16 95 04/05/18 11:47 97.6 F 98 20 93/62 94 L 04/05/18 08:10 98 F 90 20 92 L 04/05/18 08:09 90 20 93/53 L 92 L 04/05/18 07:38 98.0 F 95 18 85/45 L 91 L 04/05/18 06:35 97 16 94 L Weight Admit Weight 72.2 kg Weight 72.212 kg Most Recent Monitor Data Heart Rate from ECG 105 NIBP 115/75 NIBP BP-Mean 100 Respiration from ECG 35 SpO2 87 I&O: 04/04/18 04/05/18 04/06/18 06:59 06:59 06:59 Intake Total 570 360 Output Total 425 250 Balance 145 110 Result Diagrams: 04/05/18 07:56 04/05/18 07:56 <Wai Johnson - Last Filed: 04/05/18 17:08> Phys Exam - Physical Examination Constitutional: NAD HEENT: moist MMs icteric sclera Respiratory: no wheezing, no rales, no rhonchi, clear to auscultation bilateral Cardiovascular: RRR, no significant murmur, no rub Gastrointestinal: soft, non-tender, positive bowel sounds mildly distended Musculoskeletal: pulses present, edema present (trace pitting edema in BLE) Neurological: non-focal, moves all 4 limbs Psychiatric: normal affect, A&O x 3 Skin: normal turgor, cap refill <2 seconds <Miranda Fournier - Last Filed: 04/05/18 08:28> Dx/Plan (1) Acute respiratory failure with hypoxia Code(s): J96.01 - ACUTE RESPIRATORY FAILURE WITH HYPOXIA Status: Acute (2) Septic shock Code(s): A41.9 - SEPSIS, UNSPECIFIED ORGANISM; R65.21 - SEVERE SEPSIS WITH SEPTIC SHOCK Status: Acute (3) CAP (community acquired pneumonia) Code(s): J18.9 - PNEUMONIA, UNSPECIFIED ORGANISM Status: Acute QualifierTitle: Laterality: left Lung location: lower lobe of lung Qualified Code(s): J18.1 - Lobar pneumonia, unspecified organism (4) Severe anemia Code(s): D64.9 - ANEMIA, UNSPECIFIED Status: Acute (5) Hypoglycemia Code(s): E16.2 - HYPOGLYCEMIA, UNSPECIFIED Status: Acute (6) Lactic acidosis Code(s): E87.2 - ACIDOSIS Status: Acute (7) Hypokalemia Code(s): E87.6 - HYPOKALEMIA Status: Acute (8) Hypocalcemia Code(s): E83.51 - HYPOCALCEMIA Status: Acute (9) Transaminitis Code(s): R74.0 - NONSPEC ELEV OF LEVELS OF TRANSAMNS & LACTIC ACID DEHYDRGNSE Status: Acute (10) Elevated bilirubin Code(s): R17 - UNSPECIFIED JAUNDICE Status: Acute (11) Elevated INR Code(s): R79.1 - ABNORMAL COAGULATION PROFILE Status: Acute (12) Alcohol abuse Code(s): F10.10 - ALCOHOL ABUSE, UNCOMPLICATED Status: Acute (13) Marijuana abuse Code(s): F12.10 - CANNABIS ABUSE, UNCOMPLICATED Status: Acute (14) Tobacco abuse Code(s): Z72.0 - TOBACCO USE Status: Acute (15) Anasarca Code(s): R60.1 - GENERALIZED EDEMA Status: Acute (16) Ascites Code(s): R18.8 - OTHER ASCITES Status: Acute QualifierTitle: Ascites type: other type Qualified Code(s): R18.8 - Other ascites (17) History of gastric cancer Code(s): Z85.028 - PERSONAL HISTORY OF OTHER MALIGNANT NEOPLASM OF STOMACH Status: Resolved (18) Thrombocytopenia Code(s): D69.6 - THROMBOCYTOPENIA, UNSPECIFIED Status: Acute (19) Elevated alkaline phosphatase level Status: Acute (20) Hypoalbuminemia Code(s): E88.09 - OTH DISORDERS OF PLASMA-PROTEIN METABOLISM, NEC Status: Acute (21) Malnutrition related to chronic disease Code(s): E46 - UNSPECIFIED PROTEIN-CALORIE MALNUTRITION Status: Acute (22) Microcytic anemia Code(s): D50.9 - IRON DEFICIENCY ANEMIA, UNSPECIFIED Status: Acute (23) Hyperbilirubinemia Code(s): E80.6 - OTHER DISORDERS OF BILIRUBIN METABOLISM Status: Acute (24) Hiccups Code(s): R06.6 - HICCOUGH Status: Acute (25) Physical deconditioning Code(s): R53.81 - OTHER MALAISE Status: Acute (26) ARDS (adult respiratory distress syndrome) Code(s): J80 - ACUTE RESPIRATORY DISTRESS SYNDROME Status: Acute - Plan Plan: 58 y/o M presents with weakness and decreased energy was found to be in septic shock and acute hypoxic respiratory failure Cholangitis with Liver Abscesses, suspected Pt initially presented in septic shock with low pressures, Tmax 101.7, WBC 12.3 , 42% bands. Only source found has been L perihilar infiltrate and E. coli and Klebsiella bacteremia. Initially required levophed, but that has been titrated off. His MAP's have improved to 70s-80s. CT abd/pelvis concerning for liver abscesses. There is concern for cholangitis with the patient's presentation. Abd MRI showed R liver masses with peripheral enhancement concerning for necrotic mets or abscesses as well as diffuse biliary duct dilatation. -Pt re-fevered on 03/29 and 03/31. Repeat BCx from 03/29 show NG @ 48 hrs -Transitioned to PO levaquin from Rocephin per ID recs -Port cultures NG @ 5 days -ID on board, appreciate recs -Gen surg on board, appreciate recs -pt has a poor prognosis, discussed that he wanted full treatment with palliative care, but has limited treatment options as he is not a surgical candidate. -HIDA scan results pending -Continue PT/OT, rehab screen Acute Hypoxic Respiratory Failure 2/2 ARDS - resolved Patient required intubation after receiving fluid resuscitation, likely 2/2 volume overload. Was extubated on 03/26. Required BiPAP on 03/27 and 03/29. CTA showed no evidence of PE, but revealed diffuse ground glass opacities, moderate BL pleural effusions and atelectasis vs infiltrate. Pt now on RA. -Continue daily lasix -Pulm on board, appreciate recs Septic Shock, resolved 2/2 E. coli and Klebsiella bacteremia Severe Microcytic Anemia Hb 5.5 initially, no signs of bleeding s/p 3 U PRBC's total, the Hb is now 7.4. FOBT positive. EGD showed ulcer with necrotic base that was not actively bleeding. This was biopsied. Retic Index 0.61, hypoproliferative -GI has been consulted, appreciate recs -Continue protonix -Pt refusing daily blood draws, so they are currently q2days Thrombocytopenia, resolved Platelets have been slowly downtrending, to lowest of 25. Pt was having bloody stools so was given a 6 pack of platelets on 03/29. His platelets have now improved to 255. Could be 2/2 sepsis vs DIC. -Will continue to monitor Hyperbilirubinemia Bili has been trending up throughout hospitalization with unknown cause. D. bili is elevated as well. Hemolysis labs came back normal. Pt now having acholic stools concerning for a possible obstructive process. CT abd/pelvis concerning for liver abscesses vs mets, but with fevers, bacteremia and WBC count increasing the abscess are more likely. Cholestasis is concerning at this point. Abd MRI showed diffuse biliary duct dilatation. -GI on board, appreciate recs -HIDA results pending h/o Gastric Cancer s/p resection with Whipple CEA elevated to 9.77 Gastric ulcer with necrotic base, possibly ischemia -GI on board, appreciate recs Ascites Possibly 2/2 severe hypoalbuminemia Patient had paracentesis on 03/31 with removal of 5.7 L of fluid. No growth from culture at 24 hours. -Monitor Hypoglycemia, resolved Glucose low initially, has been improved now that pt is eating. Hypokalemia -replete and monitor Lactic Acidosis, resolved Lactic acid 2.3->6.2->4.9->2.2, s/p fluids Transaminitis, resolved Pt has h/o EtOH abuse and ascites, no known liver disease, but has had a paracentesis before -Trend -GI on board, appreciate recs Malnutrition with severe hypoalbuminemia -Ensure Enlive TID -Consult Dietitian Polysustance abuse -ASE protocol -monitor Hiccups -Will start chlorpromazine <Miranda Fournier - Last Filed: 04/05/18 08:28> Attending Addendum - Attending Addendum Date/Time: 04/05/18 3136 I personally evaluated the patient and discussed the management with Dr. Fournier I agree with the History, Examination, Assessment and Plan documented above with any addition or exceptions noted below. 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 Further rec pending results of scan today. <Wai Johnson - Last Filed: 04/05/18 17:08>
[2018-04-05] MEDS ORDERED: Enoxaparin Sodium 40 MG/0.4 ML SYRINGE SC SCH (09:00)
[2018-04-05 09:13] LABS: ALT (SGPT) 83 U/L (8-55); AST (SGOT) 82 U/L (5-34); Albumin 1.9 g/dL (3.5-5.0); Alkaline Phosphatase 429 U/L (40-150); Anion Gap 10 mmol/L (10-20); BUN (Urea Nitrogen) 14 mg/dL (8.4-25.7); Bilirubin, Total 19.1 mg/dL (0.2-1.2); Calc. Creatinine Clearance 108 mL/min (70-130); Calcium 8.2 mg/dL (7.8-10.44); Carbon Dioxide 28 mmol/L (22-29); Chloride 105 mmol/L (98-107); Estimated GFR-MDRD Greater than 90; Globulin 2.6 g/dL (2.4-3.5); Glucose 76 mg/dL (70-105); Magnesium 1.6 mg/dL (1.6-2.6); Phosphorus 3.6 mg/dL (2.3-4.7); Potassium 3.7 mmol/L (3.5-5.1); Protein, Total 4.5 g/dL (6.0-8.3); Sodium 139 mmol/L (136-145)
--- NOTE | 2018-04-05 11:06 | NM ---
HEPATOBILIARY SCAN: Date: 04/04/18 HISTORY: Biliary obstruction versus cirrhosis. History of previous Whipple's. Stage III gastric carcinoma. Abn ormal LFTs. RADIOPHARMACEUTICAL: 5.2 mCi technetium 99m mebrofenin injected intravenously. FINDINGS: There is tracer uptake by the liver without excretion into the biliary tract or small bowel loops on the initial 1 hour or delayed 24 hour images. IMPRESSION: Findings are consistent with high grade biliary obstruction. Severe hepatocellular dysfunction is les s likely. POS: [facility]
--- NOTE | 2018-04-05 19:36 | PRG ---
DATE OF SERVICE: 04/05/2018 SUBJECTIVE: Mr. Bush was transferred to the floor. His girlfriend is in the room with him. He de nies any headaches, no visual symptoms. No chest pain, no shortness of breath, no abdominal pain any more. No diarrhea. OBJECTIVE: VITAL SIGNS: His vital signs showed a T-max of 99.1, currently 98. HEENT: He has got deep scleral icterus. Ocular movements conjugate. LUNGS: Clear. HEART: S1, S2, regular rate. ABDOMEN: Soft, without tenderness. EXTREMITIES: Lower extremities equally. LABORATORY DATA: White cell count 13.8, hemoglobin 7.2, platelets 255. The chemistry with a bilirub in at 19.1, AST 82, ALT 83, alkaline phosphatase 429, albumin 1.9. C. diff and antigen toxin negativ e. The HIDA scan showed obstruction of the bile duct. ASSESSMENT AND DISCUSSION: Gastric cancer, status post resection and the Whipple procedure. No evid ence of obstruction of the bile duct which is likely at the level of the anastomosis with the jejunum . He also likely has liver abscess and the organisms can be covered of quinolone to be continued for a protracted period of time, probably around 6 weeks. Followup imaging studies, the patient probabl y likely need to be transferred for further evaluation of the area of stricture and see if any less i nvasive method could be used to fix that problem.
[2018-04-05 23:10] VITALS: BP 96/53; TEMP 98.4
--- NOTE | 2018-04-06 05:02 | PRG ---
DATE OF SERVICE: 04/05/2018 SUBJECTIVE: Mr. Bush feels about the same. He has had just about every other day, since he has be en out of the ICU, just feels tired and weak. He did have his HIDA scan yesterday. I have reviewed this with Radiology, they feel that the findings suggest high-grade biliary obstruction and hepatocel lular dysfunction is less likely as uptake in the liver very easily and quickly within 1 hour. There was no ever any extraction of the the biliary tree or bowel up to even 24 hours. OBJECTIVE: GENERAL: Today, he is resting comfortably in bed, his family at bedside. VITAL SIGNS: His temperature was 98.7, pulse 88, blood pressure 93/62. ABDOMEN: Shifting dullness, palpable thyromegaly. EXTREMITIES: No peripheral edema. LABORATORY STUDIES: Today, white count is 13.8, hemoglobin is 7.2, platelet count is 255. Sodium 13 9, potassium 3.7, BUN and creatinine are 14 and 0.74. Bilirubin is 19, AST and ALT are 82 and 83, al kaline phosphatase is 429, protein 4.5, albumin 1.9. ASSESSMENT: 1. History of gastric cancer, stage 3B resected with Whipple secondary adherence to the pancreas, st atus post recent chemotherapy. 2. Admission with sepsis felt to be initially pneumonia and then it was felt to probably biliary, as his liver function test can improve throughout hospitalization and he had a CAT scan revealing dilat ed intrahepatic biliary tree and pancreatic duct and Whipple anatomy. He also grew out developed les ions in the liver, which appeared to be small abscesses. His Radiology here could not biopsy those. I did not feel sick, comfortable doing that with him being more in the dome of the liver. 3. Suspected biliary obstruction versus hepatic dysfunction or cirrhosis related to heavy alcohol an d substance abuse in the past. The patient had serologic workup negative for hepatitis and previous evaluation here in November. He had previous paracentesis in November that showed serum albumin grad ient greater than 1.1, suggesting of portal hypertensive ascites. There was no malignancy noted at t hat point in time on cytology; however, those taps were not repeated this admission. With regard to the question of liver synthetic dysfunction versus biliary obstruction, he had a HIDA scan which show s nonexcretion of radiotracer suggestive of high-grade biliary obstruction. The radiologist here did not feel they could access this and stented because of his presence of ascites. 4. Biliary Escherichia coli sepsis. RECOMMENDATIONS: 1. I had a long conversation with patient and his family member at the room. I am concerned the mal ignancy is the cause of his ascites and biliary obstruction. His CEA has increased from 5.8 in 01/11 18 and 9.7 in 03/2007. I discussed this with the patient and his family and stated them that I do no t think, if he has recurrent malignancy which we have been able to prove, it would not be curable at this point in time. His main problem is biliary obstruction and this is not flexible here at this [facility]. He is not a candidate for an ERCP secondary to the anatomy now, luckily anastomosis could no t be reached. Surgery feels he is very high risk for repeat surgery and reanastomosis and then with his nutritional status, he would not survive that. Interventional Radiology here did not feel that brent cano could stent this. At this time, I think his options really are palliative care, as with malignan t biliary obstruction will become septic as soon as the antibiotics were stopped. The other option i s to return to transfer him to a tertiary facility to see if there is Interventional Radiology that c ould affect some type of biliary drainage. This would be more palliative if he has ultimately found to have recurrent malignancy. I explained these issues to the patient's family and he does not want to go to palliative care unless that is the only option and would like to pursue a question of whethe r or not he can go to a facility where possibly either be available to perform some type of biliary s tenting procedure. 2. Gastric ulcer. Biopsies were benign. This was felt to be an ischemic like ulcer. 3. At this time, I have conveyed these issues and recommendations to the primary service. When I w as here, I have seen the patient, rehab was seen the patient. I do not think he is really a candidat e for rehabilitation. He has got a problem that if he is not repaired, he will become septic and onc e antibiotics were stopped. If it is not going to be repaired, there needs to be plans for palliativ e care and hospice care. If the goal was further treatment, then he is to be transferred to another tertiary facility to see if there are any solutions available, but rehabilitation is not probably goi ng to do this patient any good. At this time, Dr. Zhang will be covering over the weekend. After the patient has abstained here at this facility, to facilitate the diagnosis, it may be reasonable to repeat his paracentesis with c ytology studies. I will be out next week and my partners will be available as needed.
--- NOTE | 2018-04-07 21:53 | DIS-2 ---
DATE OF ADMISSION: 03/25/2018 DATE OF DISCHARGE: 04/05/2018 ADMITTING ATTENDING: Ally Willams M.D. DISCHARGE ATTENDING: Wai Johnson MD ADMITTING RESIDENT: Deonna Browning DO DISCHARGE RESIDENT: Miranda Fournier MD CONSULTATIONS 1. Dr. Coles with Gastroenterology. 2. Dr. Resendiz with Infectious Disease. 3. Dr. Neely with General Surgery. 4. Dr. Silva with Nephrology. 5. Dr. Maldonado with Pulmonology. PROCEDURES: 1. EGD on 03/26/2018 that showed a 3 cm ulcer in the cardia of the stomach with a necrotic appearing base that was not actively bleeding. 2. Paracentesis on 03/31/2018, removed 5 liters of ascitic fluid. IMAGIN. Chest x-ray showed increased opacification in the left perihilar region suggesting left perihilar infiltrate. 2. Chest thorax CTA showed no PE, diffuse hazy ground glass opacity throughout both lungs, moderate bilateral pleural effusions with bibasilar atelectasis and/ or infiltrate, dilated fluid filled esophagus in the mid chest. 3. Abdomen MRI showed nonspecific right liver masses with peripheral enhancement. Diffuse biliary dilatation involving the pancreatic common bile duct and central intrahepatic biliary tree. 4. Abdomen and pelvis CT showed extensive intra-abdominal and pelvic fluid. Hypodensities with peripheral enhancement of the liver suggesting areas of metastases. Dilatation of the pancreatic duct. 5. HIDA scan showed findings consistent with high grade biliary obstruction. PRIMARY DIAGNOSES: 1. Septic shock. 2. Acute hypoxic respiratory failure. 3. Bacteremia due to Escherichia coli and Klebsiella. 4. Adult respiratory distress syndrome. 5. Cholangitis. 6. Liver abscesses versus metastases. 7. Severe biliary tract obstruction. 8. Severe microcytic anemia. 9. Thrombocytopenia. 10. Hyperbilirubinemia. 11. Hypoglycemia. 12. Hypokalemia. 13. Lactic acidosis. 14. Transaminitis. SECONDARY DIAGNOSES: 1. History of gastric cancer, status post Whipple procedure. 2. Malnutrition with severe hypoalbuminemia. 3. Deconditioning. 4. Polysubstance abuse. 5. Ascites. DISCHARGE MEDICATIONS: 1. Vitamin C 500 mg 1 tab p.o. b.i.d. 2. Calcium carbonate 1000 mg p.o. daily p.r.n. 3. Chlorpromazine 25 mg p.o. q6h p.r.n. hiccups. 4. Vitamin D3 1000 units p.o. at bedtime. 5. Ferrous sulfate 325 mg 1 tab p.o. q.a.m. 6. Folic acid 1 mg p.o. daily. 7. Furosemide 40 mg p.o. daily. 8. Gabapentin 300 mg p.o. q.i.d. 9. Levaquin 750 mg p.o. daily. 10. Multivitamin 1 tab p.o. daily. 11. Protonix 40 mg p.o. b.i.d. 12. Potassium chloride 20 mEq p.o. q.a.m. with meals. 13. Thiamine 100 mg p.o. daily. 14. Wellbutrin 150 mg p.o. q.a.m. DISCONTINUED MEDICATIONS: None. HISTORY OF PRESENT ILLNESS AND HOSPITAL COURSE: The patient is a 58-year-old male with a past medical history of gastric cancer, status post Whipple, who presented to the ER in septic shock. The patient was fluid resuscitated with 5 liters of normal saline and subsequently developed shortness of breath with hypoxia requiring intubation. The patient was started on Levophed and this was continued overnight to maintain a MAP of 65. The patient was started on broad spectrum antibiotics with vancomycin and Zosyn. The patient was also found to have hemoglobin initially of 5.5 and was given 2 units of packed red blood cells. The patient was found to be FOBT positive and with his history of gastric cancer, ended up getting an EGD on his second day of hospitalization. The patient was able to be weaned off Levophed on his second day of hospitalization as well. However, he remained intubated until after his EGD. The EGD showed a 3 cm gastric ulcer with a necrotic base that was not actively bleeding. The patient was able to be successfully extubated and subsequently required intermittent BiPAP two different times as well as some diuresis as his blood pressure tolerated; however, his respiratory distress improved significantly early in his hospitalization. The patient's hemoglobin came up to 10.9 after the second unit of blood and then by the next day it was back down to 8.3. The patient has a baseline anemia around 8. The patient did drop down to 7, however, rechecked later that morning came back at 7.8 on the , so he was not given any further blood that day, but on 03/29/2018, the patient' s hemoglobin was down to 7.2 and the patient was having some blood in his stools on that day and so he was given 1 more unit of blood. The patient also had initial platelet count of 140, but this quickly dropped down and trended down all the way to 25. The patient was thought to be potentially in DIC due to his sepsis. The patient received a unit of platelets due to the blood in the stools that were mentioned previously. The patient's platelet count improved significantly by the end of his hospitalization. It had trended up to 56 after the platelets and then by 04/03/2018 it had jumped up to 154 and by the day of discharge was 255. The patient's blood cultures grew out E. coli and Klebsiella. Initially, the source was unknown. There was thought to be potential for left lower lobe pneumonia; however, this was not consistent with the patient's clinical findings. The patient was found to have worsening LFTs, particularly the bilirubin and alkaline phosphatase. The bilirubin initially was 2.8, but continued to trend up and by the day of discharge was 19.1. The alkaline phosphatase initially was 258, but trended up to 576, the peak. The patient also had a direct bilirubin of 7.7. By the end of his hospitalization, the patient had a bump in AST and ALT into the 80s. The patient was found to have cholangitis and a severe biliary tract obstruction with an unknown cause at this time as well as liver abscesses versus new mets. The obstruction could be due to a stricture versus metastatic disease. The patient did have a CEA of 9.77 , which was elevated compared to the one that was checked fairly recently. The patient's antibiotics were tailored down to Rocephin and then per Infectious Disease recommendations even further to oral Levaquin once sensitivities had returned on the E. coli and Klebsiella with plans for continuing prolonged antibiotics for 6 weeks. General Surgery, IR as well as GI were all consulted to see if there was anything that could be done regarding the biliary tract obstruction. However, due to the patient's ascites and other comorbidities, none of them were able to perform the procedure to relieve this obstruction and due to the patient's Whipple, nothing could be done endoscopically. The patient had significant ascites that was drained therapeutically by IR on . This also helped with the patient's shortness of breath. The patient also had multiple electrolyte abnormalities during his hospitalization including hypokalemia and hypomagnesemia, but these were repleted. The patient was stabilized at this point and it was determined that the best course of action would be to attempt to transfer this patient to a facility that could potentially relieve this obstruction in his biliary tract. So, the patient was transferred to [facility] in [place] and the case was discussed in thorough detail with them and they accepted the transfer in 04/05/2018. The patient has a very poor prognosis. DISPOSITION: Guarded. DISCHARGE INSTRUCTIONS: 1. Location: [facility] in [place]. 2. Activity: As tolerated. 3. Diet: Soft fiber restricted diet. 4. Follow up with [facility] within 7 days of discharge from the hospital. JAMAL
== END 2018-04-05 23:00 | disposition short-term general hospital (02) | DRG 871 ==
LOC: ERS 19:09 → CCU 03-25 01:23 → IMCU/EMU 03-28 11:00 → 2NO 04-01 21:02 → T4-A 04-04 20:15
PROVIDERS: ADMIT Family Medicine; ATTEND Family Medicine
PROC: 5A1945Z Respiratory Ventilation, 24-96 Consecutive Hours (ICD-10-PCS; principal; 2018-03-25)
PROC: 0BH17EZ Insertion of Endotracheal Airway into Trachea, Via Natural or Artificial Opening (ICD-10-PCS; 2018-03-25)
PROC: 30233N1 Transfusion of Nonautologous Red Blood Cells into Peripheral Vein, Percutaneous Approach (ICD-10-PCS; 2018-03-25)
PROC: 0DB68ZX Excision of Stomach, Via Natural or Artificial Opening Endoscopic, Diagnostic (ICD-10-PCS; 2018-03-26)
PROC: 5A09357 Assistance with Respiratory Ventilation, Less than 24 Consecutive Hours, Continuous Positive Airway Pressure (ICD-10-PCS; 2018-03-27)
PROC: 30233R1 Transfusion of Nonautologous Platelets into Peripheral Vein, Percutaneous Approach (ICD-10-PCS; 2018-03-29)
PROC: 0W9G3ZZ Drainage of Peritoneal Cavity, Percutaneous Approach (ICD-10-PCS; 2018-03-31)
DX: A41.51 Sepsis due to Escherichia coli [E. coli] (principal); J96.01 Acute respiratory failure with hypoxia; R65.21 Severe sepsis with septic shock; K75.0 Abscess of liver; E43 Unspecified severe protein-calorie malnutrition; K83.1 Obstruction of bile duct; E87.2 Acidosis; R18.8 Other ascites; K83.0 Cholangitis; N17.9 Acute kidney failure, unspecified; C78.7 Secondary malignant neoplasm of liver and intrahepatic bile duct; D62 Acute posthemorrhagic anemia; A41.89 Other specified sepsis; F10.10 Alcohol abuse, uncomplicated; E87.6 Hypokalemia; E88.09 Other disorders of plasma-protein metabolism, not elsewhere classified; F17.210 Nicotine dependence, cigarettes, uncomplicated; E16.2 Hypoglycemia, unspecified; F12.10 Cannabis abuse, uncomplicated; E83.51 Hypocalcemia; K25.9 Gastric ulcer, unspecified as acute or chronic, without hemorrhage or perforation; D69.6 Thrombocytopenia, unspecified; Z68.25 Body mass index [BMI] 25.0-25.9, adult; Z85.028 Personal history of other malignant neoplasm of stomach; Z85.89 Personal history of malignant neoplasm of other organs and systems; Z92.21 Personal history of antineoplastic chemotherapy; Z92.3 Personal history of irradiation; Z79.899 Other long term (current) drug therapy
CPT/HCPCS: 31500; 36415; 36416; 36430; 36556; 49083; 51702; 71045; 71275; 74177; 74183; 78226; 80048; 80053; 80202; 81003; 81015; 82042; 82248; 82274; 82378; 82533; 82553; 82805; 83010; 83605; 83690; 83735; 84100; 84157; 84484; 85007; 85014; 85018; 85025; 85027; 85046; 85060; 85362; 85384; 85610; 85730; 86850; 86900; 86901; 87040; 87070; 87077; 87086; 87149; 87186; 87205; 87324; 87449; 87517; 87804; 88305; 88312; 89051; 93005; 94002; 94003; 94640; 94660; 96361; 96365; 96367; 96375; A4216; A9537; C9113; G8978-GP-CN; G8979-GP-CK; G8987-GO-CK; G8988-GO-CJ; J0456; J0696; J1642; J1650; J1885; J1940; J2001; J2543; J2704; J3370; J3430; J3475; J3480; J7050; J7620; P9016; P9035; P9047; Q0161